=== PATIENT | female | born 1975 | race Caucasian/White ===

== ENCOUNTER 2020-09-09 13:00 | Outpatient (RCR) | payer MEDICAID, OTHER, SELFPAY | END 2020-10-07 10:40 | disposition home or self-care (01) | LOC: HO.PTCHIC 13:00 | PROVIDERS: PCP Nurse Practitioner Family; Visit Provider Nurse Practitioner Family | DX: R42 Dizziness and giddiness (principal) | CPT/HCPCS: 95992; 97110; 97112 ==

== ENCOUNTER → 2020-10-07 12:59 | Outpatient (BNV) | payer MEDICAID, SELFPAY | PROVIDERS: Visit Provider Internal Medicine | DX: D72.819 Decreased white blood cell count, unspecified (principal) | CPT/HCPCS: 99203; 99213 ==

== ENCOUNTER 2020-10-27 16:13 | Outpatient (REF) | payer MEDICAID, OTHER, SELFPAY ==
[2020-10-27 17:13] LABS: MANUAL DIFF FLAG NO
[2020-10-27 17:20] LABS: Basophils Percent Auto 0.3 % (0-2); Eosinophils Absolute Auto 0.1 X10*3/uL (0.0-0.4); Eosinophils Percent Auto 2.6 % (0-4); Hemoglobin 15.4 g/dl (12.0-16.0); Imm Gran Abs Auto 0.01 X10*3/uL (0.00-0.03); Imm Gran Pct Auto 0.3 % (0.0-0.4); Lymphocytes Absolute Auto 1.2 X10*3/uL (1.2-4.9); Lymphocytes Percent Auto 38.3 % (20-40); Mean Corpuscular HGB Conc 32.8 g/dl (31.0-35.0); Mean Corpuscular Hemoglobin 29.2 pg (27.0-33.0); Mean Corpuscular Volume 89.2 fL (80-98); Mean Platelet Volume 9.5 fL (9.4-12.3); Monocytes Absolute Auto 0.3 X10*3/uL (0.1-1.2); Monocytes Percent Auto 10.4 % (2-11); Neutrophils Absolute Auto 1.5 X10*3/uL (2.0-8.3); Neutrophils Percent Auto 48.1 % (45-73); Platelet Count 390 X10*3/uL (160-400); Red Blood Count 5.27 X10*6/uL (4.20-5.50); Red Cell Distribution Width 11.8 % (11.0-16.0); White Blood Count 3.1 X10*3/uL (4.8-10.8)
[2020-10-27 17:53] LABS: C Reactive Protein 0.32 mg/dL (< or = 0.50)
[2020-10-27 18:17] LABS: Ferritin 46 ng/mL (10-250)
== END 2020-10-27 16:14 | disposition home or self-care (01) ==
LOC: HO.LAB 16:13
PROVIDERS: PCP Nurse Practitioner; Visit Provider Internal Medicine
DX: U07.1 COVID-19 (principal); D70.8 Other neutropenia
CPT/HCPCS: 36415; 82728; 85025; 86140; 87040

== ENCOUNTER 2021-05-24 08:45 | Outpatient (REF) | payer MEDICAID, OTHER, SELFPAY ==
--- NOTE | ~2021-05-24 | MM_ITS ---
EXAMINATION: MM SCREENING DIGITAL BREAST TOMOSYNTHESIS, BILATERAL CLINICAL INFORMATION: Screening. Asymptomatic. The lifetime risk of breast cancer based on the Tyrer-Cuzick Model is 8.0%. COMPARISON: Mammography: May 23, 2020 and studies dating back to December 18, 2014 TECHNIQUE: Digital breast tomosynthesis is performed in both the craniocaudal and mediolateral oblique views along with computer-aided detection (CAD). Synthesized 2D images are generated from the tomosynthesis. FINDINGS: There are scattered areas of fibroglandular density (ACR BI-RADS breast composition Category b). There are no significant masses, abnormal calcifications, or other abnormalities. MM/MM tomosynthesis screening BI IMPRESSION: There are no significant changes from prior study. ASSESSMENT: BI-RADS 1: Negative RECOMMENDATION: Routine annual mammography screening. This patient's information was entered into a reminder system with a target due date for their next mammogram.
== END 2021-05-24 08:46 | disposition home or self-care (01) ==
LOC: HO.MAMMO 08:45
PROVIDERS: PCP Nurse Practitioner; Visit Provider Nurse Practitioner
DX: Z12.31 Encounter for screening mammogram for malignant neoplasm of breast (principal)
CPT/HCPCS: 77063; 77067

== ENCOUNTER 2022-06-13 13:45 | Outpatient (REF) | payer MEDICAID, OTHER, SELFPAY ==
--- NOTE | ~2022-06-13 | MM_ITS ---
EXAMINATION: MM SCREENING DIGITAL BREAST TOMOSYNTHESIS, BILATERAL CLINICAL INFORMATION: Screening. Asymptomatic. The lifetime risk of breast cancer based on the Tyrer-Cuzick Model is 8%. COMPARISON: Mammography: 05/24/2021, 05/23/2020, 03/15/2019 TECHNIQUE: Digital breast tomosynthesis is performed in both the craniocaudal and mediolateral oblique views along with computer-aided detection (CAD). Synthesized 2D images are generated from the tomosynthesis. FINDINGS: There are scattered areas of fibroglandular density (ACR BI-RADS breast composition Category b). Breast tissue composition borders on predominantly fatty. There is no developing density or interval mass or architectural abnormality. No abnormal calcifications. Biopsy clip marker again noted anterior upper outer right breast. The axilla and skin contours are unremarkable. MM/MM tomosynthesis screening BI IMPRESSION: No mammographic evidence of malignancy. ASSESSMENT: BI-RADS 1: Negative RECOMMENDATION: Routine annual mammography screening. This patient's information was entered into a reminder system with a target due date for their next mammogram.
== END 2022-06-13 13:46 | disposition home or self-care (01) ==
LOC: HO.MAMMO 13:45
PROVIDERS: Visit Provider Nurse Practitioner
DX: Z12.31 Encounter for screening mammogram for malignant neoplasm of breast (principal)
CPT/HCPCS: 77063; 77067

== ENCOUNTER 2022-09-27 17:53 | Emergency (ER) | payer MEDICAID, OTHER, SELFPAY ==
--- NOTE | ~2022-09-27 | XR_ITS ---
EXAMINATION: XR CHEST CLINICAL INFORMATION: Chest pain COMPARISON: Chest x-ray 10/30/2017 TECHNIQUE: Frontal view of the chest was obtained. FINDINGS: The lungs are clear. No airspace consolidation, pleural effusion, or pneumothorax. The cardiomediastinal silhouette is within normal limits. No acute osseous injury. XR/XR chest 1V IMPRESSION: No acute pulmonary disease.
[2022-09-27 17:56] VITALS: BP 149/79; PULSE 58; RESP 18; TEMP 36.1; O2SAT 99; BMI 36.3
--- NOTE | 2022-09-27 17:59 | ECG_ITS ---
Test Reason : CP Blood Pressure : / mmHG Vent. Rate : 059 BPM Atrial Rate : 059 BPM P-R Int : 140 ms QRS Dur : 076 ms QT Int : 430 ms P-R-T Axes : 018 017 024 degrees QTc Int : 425 ms Sinus bradycardia Otherwise normal ECG No previous ECGs available Referred By: Generic ED Physician Electronically Signed By:CHUY CHAUDHARI MD
[2022-09-27 18:13] LABS: MANUAL DIFF FLAG NO
[2022-09-27 18:28] LABS: Basophils Percent Auto 0.8 % (0-2); Eosinophils Absolute Auto 0.1 X10*3/uL (0.0-0.4); Eosinophils Percent Auto 1.6 % (0-4); Hematocrit 43.2 % (37.0-47.0); Hemoglobin 14.5 g/dl (12.0-16.0); Lymphocytes Absolute Auto 1.8 X10*3/uL (1.2-4.9); Mean Corpuscular HGB Conc 33.6 g/dl (31.0-35.0); Mean Corpuscular Hemoglobin 29.9 pg (27.0-33.0); Mean Corpuscular Volume 89.1 fL (80.0-98.0); Mean Platelet Volume 9.4 fL (9.4-12.3); Monocytes Absolute Auto 0.3 X10*3/uL (0.1-1.2); Monocytes Percent Auto 8.1 % (2-11); Neutrophils Absolute Auto 1.6 x10*3/uL (2.0-8.3); Neutrophils Percent Auto 42.5 % (45-73); Platelet Count 293 X10*3/uL (160-400); Red Blood Count 4.85 X10*6/uL (4.20-5.50); Red Cell Distribution Width 11.9 % (11.0-16.0); White Blood Count 3.8 X10*3/uL (4.8-10.8)
[2022-09-27 18:42] LABS: Troponin-I High Sensitivity 11.8 ng/L (<3.5-17.0)
[2022-09-27 18:49] LABS: Alanine Aminotransferase 25 U/L (0-31); Albumin Level 4.6 g/dL (3.5-5.0); Alkaline Phosphatase 79 U/L (39-117); Anion Gap 15 (12-20); Aspartate Amino Transferase 21 U/L (5-31); Bilirubin Direct < 0.2 mg/dL (0.0-0.5); Bilirubin Total < 0.2 mg/dL (0.0-1.0); Blood Urea Nitrogen 11 mg/dL (9-16); Calcium 9.7 mg/dL (8.4-10.2); Carbon Dioxide 25 mmol/L (22-29); Chloride 104 mmol/L (96-108); Creatinine Clr Calc Pharmacy 92.1; Estimated Glomerular Filt Rate > 60; Glucose Random 84 mg/dL (60-115); Lipase 29 U/L (8-78); Potassium 4.2 mmol/L (3.3-5.1); Sodium 140 mmol/L (135-145); Total Protein 7.5 g/dL (6.5-8.0)
[2022-09-27 23:12] LABS: Troponin-I High Sensitivity 12.5 ng/L (<3.5-17.0)
--- NOTE | 2022-09-27 23:16 | ED_ITS ---
HPI - Chest Pain General Chief Complaint: Chest Pain Stated Complaint: Chest pain/ Sent from [facility] Time Seen by Provider: 09/27/22 22:40 Source: patient Mode of arrival: ambulatory Limitations: language barrier (Cypriot-speaking certified medical asst utilized) History of Present Illness HPI narrative: Patient is a 47-year-old female presents to the emergency department for evaluation of chest pain coming from [facility]. Patient reports that she has been having diffuse anterior chest pain for 1 week. There is associated pressure felt across the chest occurring intermittently, this lasts for 1-2 minutes and then self resolves. It happens during moments of rest as well as exertion. The pressure sensation occurs approximately 5 times daily. Denies associated fevers, chills, upper respiratory symptoms, neck pain, neck stiffness, cough, shortness of breath, difficulty breathing, nausea, vomiting, abdominal pain, numbness or tingling of the extremities, weakness. Denies any history of smoking, hormone usage, recent leg pain or swelling or redness, history of DVT/PE, personal history of cancer. Related Data Home Medications Medication Instructions Recorded Confirmed cholecalciferol (vitamin D3) 25 25 mcg PO DAILY 10/07/20 10/11/21 mcg (1,000 unit) capsule (Vitamin D3) ibuprofen 600 mg tablet 600 mg PO TID 10/07/20 10/11/21 omeprazole 20 mg capsule,delayed 20 mg PO BID 10/07/20 10/11/21 release rosuvastatin 10 mg tablet (Crestor) 10 mg PO DAILY 10/07/20 10/11/21 Allergies Allergy/AdvReac Type Severity Reaction Status Date / Time acetaminophen [From Tylenol] Allergy Stomach Verified 10/11/21 08:29 Upset amoxicillin Allergy Anaphylaxis Verified 10/11/21 08:29 Review of Systems Review of Systems: Constitutional : No Weight loss, No Fever, No Chills ENT/Mouth :? No sore throat, No Rhinorrhea Eyes: No Eye Pain, No Swelling Cardiovascular : pos Chest Pain, no SOB, no Dyspnea on Exertion, No Orthopnea, No Edema, No Palpitations Respiratory : No Cough, No Sputum Gastrointestinal : No Nausea, No Vomiting, No Diarrhea, No abdominal Pain, No Hematochezia, No Melena Genitourinary : No Dysuria, No Urinary Frequency Musculoskeletal : No joint pain, No Myalgias, No Joint Swelling Skin : No Skin Lesions, No rash Neuro : No Weakness, No Numbness, No Dizziness, No Headache Psych : No Anxiety/Panic, No Depression Heme/Lymph: No Bruising, No Lymphadenopathy Endocrine : No Polyuria, No Polydipsia Yes all other systems are reviewed and are negative [facility] Past Medical History Attestation statement: The following information was validated with the patient. 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 Vitiligo Surgical History History of tubal ligation Family History Family History Mother Hyperlipemia Social History Social History Are you a primary critical care unit nurse to a significant other at home: No Alcohol intake: never Advance Directives: No Advance Directives Information Provided: Yes Physical Exam Vital Signs: Vital Signs: Last Vital Signs Temp 97.0 F 09/27/22 17:56 Pulse 58 09/27/22 17:56 Resp 18 09/27/22 17:56 BP 149/79 H 09/27/22 17:56 Pulse Ox 99 09/27/22 17:56 O2 Del Method 09/27/22 17:56 BMI result Body Mass Index 36.3 Appearance: Alert.?Oriented to person, place and time. No acute distress.?N ormal affect. Eyes: Pupils equal, round and reactive to light.? ENT: Pharynx normal.?? Neck: Normal inspection.? Neck supple.?? CVS: Heart sounds normal. Normal heart rate and rhythm.? Pulses normal.?? Respiratory: No respiratory distress.? Lung sounds clear to auscultation bilaterally?? Abdomen: Soft and non-tender. Normoactive bowel sounds. ?? Skin: Skin warm and dry.? Normal skin color.? Extremities: No lower extremity edema.? ?No calf TTP. Neuro: Moves all extremities spontaneously. Sensation intact bilaterally. No focal neuro deficits. Ambulates with normal steady gait. Course Course Course Narrative: Patient is a 39-year-old female who presents emergency department for evaluation of chest pain. Chest pain is been ongoing for 1 week. It is non reproducible. At the time of examination she is overall well-appearing. Vital signs are stable. No upper respiratory symptoms associated with this. Labs obtained from triage reveal no overall unremarkable CBC and CMP. Initial troponin 12.5, delta negative. EKG reveals sinus bradycardia no acute ischemic findings. Chest x- ray reveals no acute cardiopulmonary process. PERC negative. Not consistent with ACS/PE/pneumonia. Discussed plan of care for discharge home, outpatient follow-up with primary care provider, advised use of acetaminophen/ibuprofen as needed for pain. Reviewed worrisome signs and symptoms to return back to emerge ncy department for. All questions were answered, patient was discharged home in stable condition. MDM - Chest Pain Medical Records Data Attestation: I reviewed the patient's medical records. Lab Data Attestation: I reviewed the patient's lab results. Result diagrams: 09/27/22 18:06 09/27/22 18:05 Labs: Lab Results 09/27/22 09/27/22 09/27/22 Range/Units 18:05 18:05 18:06 WBC 3.8 L (4.8-10.8) X10*3/uL RBC 4.85 (4.20-5.50) X10*6/uL Hgb 14.5 (12.0-16.0) g/dl Hct 43.2 (37.0-47.0) % MCV 89.1 (80.0-98.0) fL MCH 29.9 (27.0-33.0) pg MCHC 33.6 (31.0-35.0) g/dl RDW 11.9 (11.0-16.0) % Plt Count 293 (160-400) X10*3/uL MPV 9.4 (9.4-12.3) fL Immature Gran % (Auto) 0.0 (0.0-0.4) % Neut % (Auto) 42.5 L (45-73) % Lymph % (Auto) 47.0 H (20-40) % Maury % (Auto) 8.1 (2-11) % Eos % (Auto) 1.6 (0-4) % Baso % (Auto) 0.8 (0-2) % Lymph # (Auto) 1.8 (1.2-4.9) X10*3/uL Maury # (Auto) 0.3 (0.1-1.2) X10*3/uL Eos # (Auto) 0.1 (0.0-0.4) X10*3/uL Baso # (Auto) 0.0 (0.0-0.2) X10*3/uL Abs Immat Gran (auto) 0.00 (0.00-0.03) X10*3/uL Absolute Neuts (auto) 1.6 L (2.0-8.3) x10*3/uL Absolute Nucleated RBC 0.000 (0.0-0.012) X10*3/uL Nucleated RBC % (auto) 0.0 (0.0-0.2) /100WBC Sodium 140 (135-145) mmol/L Potassium 4.2 (3.3-5.1) mmol/L Chloride 104 (96-108) mmol/L Carbon Dioxide 25 (22-29) mmol/L Anion Gap 15 (12-20) BUN 11 (9-16) mg/dL Creatinine 0.72 (0.5-1.4) mg/dL Estim Creat Clear Calc 92.1 Estimated GFR > 60 Random Glucose 84 (60-115) mg/dL Calcium 9.7 (8.4-10.2) mg/dL Total Bilirubin < 0.2 (0.0-1.0) mg/dL Direct Bilirubin < 0.2 (0.0-0.5) mg/dL AST 21 (5-31) U/L ALT 25 (0-31) U/L Alkaline Phosphatase 79 (39-117) U/L Troponin I High Sens 11.8 (<3.5-17.0) ng/L Total Protein 7.5 (6.5-8.0) g/dL Albumin 4.6 (3.5-5.0) g/dL Lipase 29 (8-78) U/L 09/27/22 Range/Units 22:44 WBC (4.8-10.8) X10*3/uL RBC (4.20-5.50) X10*6/uL Hgb (12.0-16.0) g/dl Hct (37.0-47.0) % MCV (80.0-98.0) fL MCH (27.0-33.0) pg MCHC (31.0-35.0) g/dl RDW (11.0-16.0) % Plt Count (160-400) X10*3/uL MPV (9.4-12.3) fL Immature Gran % (Auto) (0.0-0.4) % Neut % (Auto) (45-73) % Lymph % (Auto) (20-40) % Maury % (Auto) (2-11) % Eos % (Auto) (0-4) % Baso % (Auto) (0-2) % Lymph # (Auto) (1.2-4.9) X10*3/uL Maury # (Auto) (0.1-1.2) X10*3/uL Eos # (Auto) (0.0-0.4) X10*3/uL Baso # (Auto) (0.0-0.2) X10*3/uL Abs Immat Gran (auto) (0.00-0.03) X10*3/uL Absolute Neuts (auto) (2.0-8.3) x10*3/uL Absolute Nucleated RBC (0.0-0.012) X10*3/uL Nucleated RBC % (auto) (0.0-0.2) /100WBC Sodium (135-145) mmol/L Potassium (3.3-5.1) mmol/L Chloride (96-108) mmol/L Carbon Dioxide (22-29) mmol/L Anion Gap (12-20) BUN (9-16) mg/dL Creatinine (0.5-1.4) mg/dL Estim Creat Clear Calc Estimated GFR Random Glucose (60-115) mg/dL Calcium (8.4-10.2) mg/dL Total Bilirubin (0.0-1.0) mg/dL Direct Bilirubin (0.0-0.5) mg/dL AST (5-31) U/L ALT (0-31) U/L Alkaline Phosphatase (39-117) U/L Troponin I High Sens 12.5 (<3.5-17.0) ng/L Total Protein (6.5-8.0) g/dL Albumin (3.5-5.0) g/dL Lipase (8-78) U/L Imaging Data Chest x-ray: Radiologist's impression: XR/XR chest 1V IMPRESSION: No acute pulmonary disease. ECG Data ECG #1: Attestation: I personally reviewed and interpreted this ECG as follows: ECG interpretation date: 09/27/22 Prior ECG tracings: not available for review Interpretation: Rate: 59 Rhythm:? Sinus bradycardia [place]:? Normal Normal P waves.? Normal [place].?? Normal QRS complex.?? ST T wave :??No ST elevation, no ST depression, no T-wave inversion qTC: 425 prior studies:? None available for review The study has been interpreted contemporaneously by me. Discharge Plan Discharge Clinical Impression: Chest pain Patient Disposition: Home, Self-Care Instructions: Chest Pain (ED), Noncardiac Chest Pain (ED) Additional Instructions: As we discussed, your blood work today was overall normal, your chest x-ray and EKG were all very reassuring. You can take ibuprofen 200 mg, 3 tablets (600mg) every 6-8 hours as needed for pain, in addition to Tylenol 500 mg, 2 tablets (1,000mg) every 4-6 hours as needed for pain, but not to exceed 3 doses daily (3,000mg).? Return to emergency department with any new or worsening symptoms or concerns. This includes but is not limited to severe worsening chest pain, dizziness, lightheadedness, headache, shortness of breath, difficulty breathing, nausea with persistent vomiting, abdominal pain, numbness or tingling of your arms or legs. Follow-up with your primary care provider within 2 days. Tima comentamos, lockett an?lisis de lurdes de hoy fue normal en general, lockett radiograf?a de t?rax y lockett electrocardiograma fueron muy tranquilizadores. Puede fabio ibuprofeno de 200 mg, 3 tabletas (600 mg) cada 6 a 8 horas seg?n sea necesario para el dolor, adem?s de Tylenol 500 mg, 2 tabletas (1000 mg) cada 4 a 6 horas seg?n sea necesario para el dolor, thelma sin exceder las 3 dosis diarias (3.000 mg). Regrese al departamento de emergencias con cualquier s?ntoma o inquietud nueva o que empeore. [place] incluye, entre otros, dolor de pecho que empeora gravemente, mareos, aturdimiento, dolor de geovanna, dificultad para respirar, n?useas con v?mitos persistentes, dolor abdominal, entumecimiento u hormigueo en los brazos o las piernas. Seguimiento con lockett proveedor de atenci?n primaria dentro de 2 d?as. Prescriptions: No Action omeprazole 20 mg Capsule,Delayed Release(Dr/Ec) 20 mg PO BID ibuprofen 600 mg Tablet 600 mg PO TID cholecalciferol (vitamin D3) [Vitamin D3] 25 mcg (1,000 unit) Capsule 25 mcg PO DAILY rosuvastatin [Crestor] 10 mg Tablet 10 mg PO DAILY Referrals: Kait Wright [Primary Care Provider] - Interventions: ED Discharge Assessment Last Done: 09/27/22 23:47 Discharge Date/Time: 09/27/22 23:47 Print Language: Cypriot
== END 2022-09-27 23:47 | disposition home or self-care (01) ==
PROVIDERS: Nurse Practitioner Family; Emergency Provider Internal Medicine; PCP Nurse Practitioner
DX: R07.9 Chest pain, unspecified (principal); E78.5 Hyperlipidemia, unspecified; Z79.02 Long term (current) use of antithrombotics/antiplatelets; Z79.899 Other long term (current) drug therapy
CPT/HCPCS: 36415; 71045; 80053; 82248; 83690; 84484; 85025; 93005; 99283

== ENCOUNTER 2022-10-07 16:28 | Outpatient (REF) | payer MEDICAID, OTHER, SELFPAY ==
--- NOTE | ~2022-10-07 | CT_ITS ---
EXAMINATION: CT HEAD WITHOUT CONTRAST CLINICAL INFORMATION: Headache. COMPARISON: Brain MRI from 07/23/2008. TECHNIQUE: Contiguous axial imaging was performed from the skull base to vertex without intravenous administration of contrast. This CT examination was performed using dose optimization techniques as appropriate, variously including the following: *Automated exposure control. *Adjustment of mA and/or kV according to patient size (this includes techniques or standardized protocols for targeted exams where dose is matched to indication/reason for exam; i.e. extremities or head). *Use of iterative reconstruction technique. DLP: 670 mGy-cm FINDINGS: There is no evidence of acute intracranial hemorrhage or edematous territorial infarction. Rice-white matter differentiation is preserved. There is no abnormal attenuation within the brain parenchyma. The ventricles are normal in morphology and size. No evidence for obstructive hydrocephalus. No abnormal mass effect or midline shift. The suprasellar cistern is mildly expanded with flattening of the pituitary gland. Normal positioning of the cerebellar tonsils. No extra-axial fluid collections. No acute soft tissue or osseous abnormalities. The mastoid air cells and visualized paranasal sinuses are clear. CT/CT head/brain wo IV con IMPRESSION: No evidence of acute intracranial hemorrhage or edematous territorial infarction.
== END 2022-10-07 16:29 | disposition home or self-care (01) ==
LOC: HO.CT 16:28
PROVIDERS: PCP Emergency Medicine; Visit Provider Emergency Medicine
DX: R51.9 Headache, unspecified (principal)
CPT/HCPCS: 70450

== ENCOUNTER 2023-07-17 08:51 | Outpatient (REF) | payer MEDICAID, OTHER, SELFPAY ==
--- NOTE | ~2023-07-17 | MM_ITS ---
EXAMINATION: MM SCREENING DIGITAL BREAST TOMOSYNTHESIS, BILATERAL CLINICAL INFORMATION: Screening. Asymptomatic. COMPARISON: Mammography: This study is compared with prior exams dating back to 2017. TECHNIQUE: Digital breast tomosynthesis is performed in both the craniocaudal and mediolateral oblique views along with computer-aided detection (CAD). Synthesized 2D images are generated from the tomosynthesis. FINDINGS: There are scattered areas of fibroglandular density (ACR BI-RADS breast composition Category b). There are no significant masses, abnormal calcifications, or other abnormalities. There is tissue marker present in the right breast from prior benign percutaneous biopsy. MM/MM tomosynthesis screening BI IMPRESSION: No mammographic evidence of malignancy. ASSESSMENT: BI-RADS BI-RADS 2 - Benign Findings RECOMMENDATION: Routine annual mammography screening. 1 year F/U This examination should not preclude the clinical evaluation of a suspicious palpable abnormality. This patient's information was entered into a reminder system with a target due date for their next mammogram.
== END 2023-07-17 08:52 | disposition home or self-care (01) ==
LOC: HO.MAMMO 08:51
PROVIDERS: PCP Physician Assistant; Visit Provider Nurse Practitioner
DX: Z12.31 Encounter for screening mammogram for malignant neoplasm of breast (principal)
CPT/HCPCS: 77063; 77067

== ENCOUNTER → 2023-07-17 09:00 | Outpatient (BNV) | payer SELFPAY | PROVIDERS: PCP Physician Assistant; Visit Provider Radiology Diagnostic Radiology | DX: Z12.31 Encounter for screening mammogram for malignant neoplasm of breast (principal) | CPT/HCPCS: 77063; 77067 ==

== ENCOUNTER 2023-11-13 11:25 | Outpatient (REF) | payer OTHER, SELFPAY ==
[2023-11-13 14:01] LABS: Cholesterol 121 mg/dL (<200); HDL Cholesterol 51 mg/dL (>40); LDL Cholesterol Calculated 57 mg/dL (<100); Triglycerides 69 mg/dL (<150)
== END 2023-11-13 11:26 | disposition home or self-care (01) ==
LOC: HO.HHCL 11:25
PROVIDERS: Visit Provider Registered Nurse
DX: E78.2 Mixed hyperlipidemia (principal)
CPT/HCPCS: 36415; 80061

== ENCOUNTER 2023-12-13 11:43 | Outpatient (REF) | payer OTHER, SELFPAY ==
[2023-12-13 14:05] LABS: Alanine Aminotransferase 31 U/L (0-31); Albumin Level 4.4 g/dL (3.5-5.0); Alkaline Phosphatase 78 U/L (39-117); Aspartate Amino Transferase 27 U/L (5-31); Bilirubin Direct 0.1 mg/dL (0.0-0.5); Bilirubin Total 0.4 mg/dL (0.0-1.0); Total Protein 7.8 g/dL (6.5-8.0)
== END 2023-12-13 11:44 | disposition home or self-care (01) ==
LOC: HO.HHCL 11:43
PROVIDERS: Visit Provider Registered Nurse
DX: E78.2 Mixed hyperlipidemia (principal)
CPT/HCPCS: 36415; 80076

== ENCOUNTER 2024-02-21 12:22 | Outpatient (REF) | payer OTHER, SELFPAY ==
[2024-02-21 13:30] LABS: MANUAL DIFF FLAG NO
[2024-02-21 13:51] LABS: Basophils Percent Auto 0.7 % (0-2); Eosinophils Percent Auto 1.5 % (0-4); Hematocrit 46.2 % (37.0-47.0); Hemoglobin 15.3 g/dl (12.0-16.0); Imm Gran Abs Auto 0.01 X10*3/uL (0.00-0.03); Imm Gran Pct Auto 0.4 % (0.0-0.4); Lymphocytes Absolute Auto 1.3 X10*3/uL (1.2-4.9); Lymphocytes Percent Auto 50.2 % (20-40); Mean Corpuscular HGB Conc 33.1 g/dl (31.0-35.0); Mean Corpuscular Hemoglobin 29.4 pg (27.0-33.0); Mean Corpuscular Volume 88.8 fL (80.0-98.0); Monocytes Absolute Auto 0.2 X10*3/uL (0.1-1.2); Monocytes Percent Auto 8.6 % (2-11); Neutrophils Percent Auto 38.6 % (45-73); Platelet Count 285 X10*3/uL (160-400); Red Cell Distribution Width 12.7 % (11.0-16.0); White Blood Count 2.7 X10*3/uL (4.8-10.8)
[2024-02-21 14:00] LABS: Estimated Average Glucose 105 mg/dL; Hemoglobin A1c % 5.3 % (<6.0)
[2024-02-21 14:17] LABS: Anion Gap 12 (12-20); Blood Urea Nitrogen 10 mg/dL (9-16); Calcium 9.8 mg/dL (8.4-10.2); Carbon Dioxide 29 mmol/L (22-29); Chloride 105 mmol/L (96-108); Estimated Glomerular Filt Rate > 60; Glucose Random 91 mg/dL (60-115); Potassium 4.5 mmol/L (3.3-5.1); Sodium 141 mmol/L (135-145)
[2024-02-21 14:20] LABS: TSH reflex Free T4 4.81 uIU/mL (0.32-4.0)
[2024-02-21 15:02] LABS: Free T4 (Free Thyroxine) 0.62 ng/dL (0.71-1.85)
[2024-02-22 06:41] LABS: HIV AB/AG Nonreactive (Nonreactive); HIV Num 1 0.05 S/CO (0.00-0.99)
[2024-02-22 11:43] LABS: RPR Rapid Plasma Reagin NON-REACTIVE (NON-REACTIVE)
[2024-02-23 17:03] LABS: HCV Log PCR <1.18 NOT DETECTED Log IU/mL (NOT DETECTED); HepC Viral Load <15 NOT DETECTED IU/mL (NOT DETECTED)
== END 2024-02-21 12:23 | disposition home or self-care (01) ==
LOC: HO.HHCL 12:22
PROVIDERS: Visit Provider Registered Nurse
DX: Z00.00 Encounter for general adult medical examination without abnormal findings (principal); Z20.2 Contact with and (suspected) exposure to infections with a predominantly sexual mode of transmission
CPT/HCPCS: 36415; 80048; 83036; 84439; 84443; 85025; 86592; 87389; 87522

== ENCOUNTER 2024-02-28 12:59 | Outpatient (REF) | payer OTHER, SELFPAY ==
[2024-02-28 17:08] LABS: TSH reflex Free T4 5.93 uIU/mL (0.32-4.0)
[2024-02-28 17:46] LABS: Free T4 (Free Thyroxine) 0.68 ng/dL (0.71-1.85)
[2024-03-01 10:54] LABS: Thyroid Peroxidase Antibodies >900 IU/mL (<9)
== END 2024-02-28 13:00 | disposition home or self-care (01) ==
LOC: HO.HHCL 12:59
PROVIDERS: Visit Provider Registered Nurse
DX: R79.89 Other specified abnormal findings of blood chemistry (principal)
CPT/HCPCS: 36415; 84439; 84443; 86376

== ENCOUNTER 2024-05-08 10:50 | Outpatient (REF) | payer OTHER, SELFPAY ==
[2024-05-08 14:11] LABS: TSH reflex Free T4 3.05 uIU/mL (0.32-4.0)
[2024-05-09 08:01] LABS: HBS Num1 0.36 mIU/mL (0-7.99); HBc Num1 0.12 S/CO (0.00-0.79); HBsAGNum1 0.26 S/CO (0.00-0.99); Hepatitis B Core Antibody Nonreactive (Nonreactive); Hepatitis B Surface Antigen Negative (Negative); ~Hepatitis B Surface Antibody NONREACTIVE (Nonreactive)
== END 2024-05-08 10:51 | disposition home or self-care (01) ==
LOC: HO.HHCL 10:50
PROVIDERS: Visit Provider Registered Nurse
DX: Z00.00 Encounter for general adult medical examination without abnormal findings (principal)
CPT/HCPCS: 36415; 82306; 84443; 86704; 86706; 87340

== ENCOUNTER 2024-07-24 10:22 | Outpatient (REF) | payer OTHER, SELFPAY ==
--- NOTE | ~2024-07-24 | MM_ITS ---
EXAMINATION: MM SCREENING DIGITAL BREAST TOMOSYNTHESIS, BILATERAL CLINICAL INFORMATION: Screening. Asymptomatic. COMPARISON: Mammography: Comparison is made with available priors TECHNIQUE: Digital breast tomosynthesis is performed in both the craniocaudal and mediolateral oblique views along with computer-aided detection (CAD). Synthesized 2D images are generated from the tomosynthesis. FINDINGS: There are scattered areas of fibroglandular density (ACR BI-RADS breast composition Category b). Right marker clip. There are no significant masses, abnormal calcifications, or other abnormalities. MM/MM tomosynthesis screening BI IMPRESSION: No mammographic evidence of malignancy. ASSESSMENT: BI-RADS BI-RADS 2 - Benign Findings RECOMMENDATION: Routine annual mammography screening. 1 year F/U This examination should not preclude the clinical evaluation of a suspicious palpable abnormality. This patient's information was entered into a reminder system with a target due date for their next mammogram. Electronically signed by: Norma Sheehan DO 08/16/2024 04:40 PM EDT
== END 2024-07-24 10:23 | disposition home or self-care (01) ==
LOC: HO.MAMMO 10:22
PROVIDERS: PCP Registered Nurse; Visit Provider Registered Nurse
DX: Z12.31 Encounter for screening mammogram for malignant neoplasm of breast (principal)
CPT/HCPCS: 77063; 77067

== ENCOUNTER → 2024-07-24 10:30 | Outpatient (BNV) | payer SELFPAY | PROVIDERS: PCP Registered Nurse; Visit Provider Internal Medicine | DX: Z12.31 Encounter for screening mammogram for malignant neoplasm of breast (principal) | CPT/HCPCS: 77063; 77067 ==

== ENCOUNTER 2024-08-07 10:52 | Outpatient (REF) | payer OTHER, SELFPAY ==
[2024-08-07 12:36] LABS: Cholesterol 171 mg/dL (<200); HDL Cholesterol 46 mg/dL (>40); LDL Cholesterol Calculated 99 mg/dL (<100); Triglycerides 133 mg/dL (<150)
[2024-08-07 13:16] LABS: Free T4 (Free Thyroxine) 0.69 ng/dL (0.71-1.85)
== END 2024-08-07 10:53 | disposition home or self-care (01) ==
LOC: HO.HHCL 10:52
PROVIDERS: Visit Provider Registered Nurse
DX: E03.9 Hypothyroidism, unspecified (principal); E78.2 Mixed hyperlipidemia
CPT/HCPCS: 36415; 80061; 84439; 84443

== ENCOUNTER 2024-09-30 13:26 | Outpatient (REF) | payer OTHER, SELFPAY ==
[2024-09-30 16:57] LABS: TSH reflex Free T4 3.35 uIU/mL (0.32-4.0)
== END 2024-09-30 13:27 | disposition home or self-care (01) ==
LOC: HO.HHCL 13:26
PROVIDERS: Visit Provider Registered Nurse
DX: E03.9 Hypothyroidism, unspecified (principal)
CPT/HCPCS: 36415; 84443

== ENCOUNTER 2025-02-11 15:12 | Outpatient (REF) | payer OTHER, SELFPAY ==
[2025-02-11 17:27] LABS: TSH reflex Free T4 4.69 uIU/mL (0.32-4.0)
--- OUTSIDE RECORDS SUMMARY | 2025-02-11 18:08 | XMS_ITS | Clinical Summary ---
Author Organization [facility] Address [address] [place] [address] Care Team Providers Care Tray Checker Name Role Phone Fabiola Bruce Primary Care Provider Allergies Active Allergy Reactions Criticality Noted Date Comments Amoxicillin Anaphylaxis High 05/15/2018 Sulfamethoxazole Rash Low 03/22/2021 Other reaction(s): Rash Trimethoprim Unknown Low 03/22/2021 Other reaction(s): Rash, Rash Acetaminophen Vomiting 12/28/2017 Medications vitamin D3 25 mcg (1,000 unit) capsule Take 1 capsule by mouth once a day. Active cetirizine (ZyrTEC) 10 mg tablet Take 10 mg by mouth as needed for seasonal allergies. Active ibuprofen (MOTRIN) 200 mg tablet Take 200 mg by mouth every 6 hours as needed for pain. Active multivitamin (THERAGRAN) tablet Take 1 tablet by mouth once a day. 2 Active Daily-Victor Manuel, with folic acid, tablet Take 1 tablet by mouth once a day. 2 Active loratadine (CLARITIN) 10 mg tablet Take 10 mg by mouth as needed. 3 Active rosuvastatin (CRESTOR) 40 mg tabletIndications:H yperlipidemia, unspecified hyperlipidemia type Take 1 tablet (40 mg total) by mouth nightly. 90 tablet 3 3 Active nortriptyline (PAMELOR) 10 mg capsule Take 1 capsule (10 mg total) by mouth nightly. 28 capsule 4 Active Active Problems Problem Noted Date Diagnosed Date Atypical chest pain 09/18/2023 Headache disorder 02/13/2023 Assessment & Plan (04/15/2024 10:19 AM EDT): She is doing well. Headaches are infrequent and when she has one, it is aborted by taking Advil. She is interested in coming off nortriptyline. I will have her decrease the dose to 10 mg nightly for about 4 weeks. If she remains stable she may then discontinue the medication. Follow-up as needed. Assessment & Plan (10/16/2023 12:36 PM EST): She is significantly improved. She reports having a headache about 2 times a month but they are mild and she often does not have to take any medication to get relief. She is tolerating nortriptyline 25 mg nightly. This medication will be maintained. Follow-up in 6 months. Assessment & Plan (07/10/2023 11:22 AM EDT): She is still having fairly frequent headaches though she feels that they are at least less than before. She is tolerating nortriptyline. I will increase the dose to 25 mg nightly. I suggested trying Excedrin Migraine as needed. Assessment & Plan (04/10/2023 10:59 AM EDT): She endorses having to take Advil for a headache about 3x/week. The medication is effective at aborting the headache. MRI-brain showed an empty sella which is just a normal variant. I reassured the patient of this benign finding. Her clinical presentation is otherwise not consistent with pseudotumor. I prescribed nortriptyline 10 mg at bedtime for prophylaxis. Follow-up in 3 months. Assessment & Plan (02/13/2023 9:53 AM EDT): The patient is a 47-year-old Polish-speaking female who comes in with a presenting complaint of headaches. She reports having holoacranial, throbbing headaches for approximately 1 year. Initially she was having headaches daily but, more recently he has been having about one a week. The headache may last several hours and she only gets partial relief by taking Advil. The headache is not worsened by coughing, sneezing, or other Valsalva maneuver. Occasionally she may have blurry vision and pulsatile tinnitus accompanying the headache. She will sometimes have conjunctival injection as well. She admits to having had headaches in the past but they were less frequent. Review of her chart reveals that she was being followed by neurology at the [facility] for vertigo from [id number] and, at one point she also mentioned having headaches. Family history is significant in that her mother had migraines. The patient had a CT scan of the brain on 10/07/2022 which was reported as showing a mildly expanded suprasellar cistern with flattening of the pituitary gland. This prompted the present consult. All other findings noted on the CT scan were normal. The patient is obese. Her neurologic examination is unremarkable. Notably, funduscopic examination was normal. An expanded suprasellar cistern could simply be a normal variant and it could be associated with empty sella syndrome. On the other hand it may also be seen in conditions such as hydrocephalus or pituitary adenomas. Unfortunately I do not have the actual CT images for review. In any case, we would need to have a better look at this finding with an MRI of the brain. Her normal neurologic examination is otherwise reassuring and I rather suspect that this will sock turner to be migraine headaches. I considered the possibility of idiopathic intracranial hypertension (IIH), previously known as pseudotumor cerebri, given that the patient is obese. However, the headache is not worsened by Valsalva, and her funduscopic examination was normal. MRI of the brain with and without contrast was requested. Further recommendations to follow when the results become available. Chronic idiopathic constipation 08/11/2021 Anal fissure 06/16/2021 History of recurrent UTIs 12/07/2018 Subacute and chronic vulvitis 09/24/2018 Screening for cervical cancer 09/10/2018 Overview (09/17/2018): 09/10/2018 pt denies abnormal pap history, not available done through pcp but reports due 12/2018. Pt denies abnormal history 09/10/2018 pap negative, hpv negative. Awaiting records if no abnormal history then 5 yr pap would be indicated per asccp guidelines for low risk patient. Chronic vulvitis 01/08/2018 Overview (09/10/2018): Vitiligo x 14 yrs, followed by dermatology, failed tacrolimus + hydrocortisone topical and light therapy for vulvovaginal symptoms 02/2018 Skin, Right Labia Minora, Punch biopsy via dermatology ??- Mild chronic vulvitis, non-specific.Comment: The epidermis shows mild acanthosis with mild hyperkeratosis, accompanied by mild superficial lymphocytic infiltrate and mild papillary dermal fibrosis. Eosinophil is not seen. A PAS stain is negative for fungal forms. The histopathological findings are subtle and nonspecific but could be consistent with chronic vulvitis and resolving allergic or irritant contact dermatitis. Clinico-pathologic correlation is recommended. 09/10/2018 subacute vulvitis with intermittent BV/yeast discussed. Hygiene reviewed. Trial of lotrisone as noted in visit 09/10/2018 will fu with SCREEN PRINTING INSPECTOR in 6-8 weeks. If she does not tolerate could consider mycolog vs. Calcitriol ointment. Pruritus ani 09/19/2017 Overview (09/19/2017): 6 months ago External hemorrhoids 09/19/2017 Seborrheic keratoses 05/01/2017 Vestibular neuronitis 12/08/2016 Leukopenia 11/18/2016 Burn of trunk 09/29/2014 Onychomycosis 05/14/2014 Depression 11/04/2010 Hyperlipidemia 11/04/2010 Benign paroxysmal positional vertigo 11/04/2010 Vitiligo 11/04/2010 Resolved Problems Problem Noted Date Diagnosed Date Resolved Date Acute cystitis without hematuria 07/06/2018 09/10/2018 Vertigo 10/31/2016 09/10/2018 Tinea pedis 05/14/2014 09/10/2018 Family History Medical History Relation Name Comments Alzheimer's disease Father Chronic Kidney Disease Father Heart disease Mother Hyperlipidemia Mother Migraines Mother Other Other Family history of No pertinent family history Relation Name Status Comments Father Mother Alive Other Social History Tobacco Use Types Packs/Day Years Used Date Smoking Tobacco: Never Smokeless Tobacco: Never Tobacco Cessation:Counseling Given: Not Answered Alcohol Use Standard Drinks/Week Comments No 0 (1 standard drink = 0.6 oz pur e alcohol) Comments No Sex and Gender Information Value Date Recorded Sex Assigned at Not on file Legal Sex Female 10:00 AM EDT Gender Identity Female 09/10/2018 10:58 AM EDT Sexual Orientation Not on file Occupation Industry Job Start Date Job End Date 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 Not on file Not on file Not on file 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 Not on file Not on file Not on file Last Filed Vital Signs Vital Sign Reading Time Taken Comments Blood Pressure 131/82 04/15/2024 9:58 AM EDT Pulse 67 04/15/2024 9:58 AM EDT Temperature 36.7 ??C (98 ??F) 07/10/2023 10:51 AM EDT Respiratory Rate 16 06/21/2023 1:47 PM EDT Oxygen Saturation 100% 04/15/2024 9:58 AM EDT Inhaled Oxygen Concentration - - Weight 81.6 kg (180 lb) 04/15/2024 9:58 AM EDT Height 152.4 cm (5') 04/15/2024 9:58 AM EDT Body Mass Index 35.15 04/15/2024 9:58 AM EDT Plan of Treatment Health Maintenance Due Date Last Done Comments Cologuard 1975 HPV and Pap Smear 1975 Sigmoidoscopy 1975 Hepatitis B Vaccines (2 of 3 - 19+ 3-dose series) 11/19/2013 10/22/2013 Cervical Cancer Screening 09/10/2021 Pap Smear 09/10/2021 09/10/2018, 09/10/2018 Mammogram 05/25/2022 05/25/2020, 02/26, 03/14/2018 DTaP,Tdap,and Td Vaccines (2 - Td or Tdap) 08/22/2023 08/22/2013 COVID-19 Vaccine (4 - 2023-2 5 season) 2024 12/09/2021, 05/16/2021, 04/25/2021 Influenza Vaccine (#1) 2024 , 10/08/2018, 08/15/2016, Additional history exists Pneumococcal Vaccine: 50+ Ye ars (1 of 1 - PCV) 2024 Zoster Vaccines (1 of 2) 2024 Alcohol/Substance Use Screening 11/27/2024 Depression Screening and Follow-Up 11/27/2024 Social Drivers of Health Sheila ual Screening 11/27/2024 FOBT / Fit Test 02/20/2025 02/21/2024, 03/20/2023 Colon Cancer Screening 10/29/2026 Colonoscopy 10/29/2026 10/29/2021, 120 01/2021, 10/29/2021, Additional history exists RSV Vaccine (60+ years old a nd patients) (1 - 1-dose 75+ series) 2049 Hepatitis C Screening Completed 03/20/2023 HIV Screening Completed 02/21/2024 Procedures * Due to [place] [employer] law, this organization might not be sharing negative HIV tests. Procedure Name Priority Date/Time Associated Diagnosis Comments COLONOSCOPY 10/29/2021 PAP Routine 09/10/2018 11:54 AM EDT Screening for cervical cancer from Last 3 Months or Most Recently Relevant to Health Maintenance Results * Due to [place] [employer] law, this organization might not be sharing negative HIV tests. * COLONOSCOPY (10/29/2021) Narrative Procedure Note Dipti Maravilla MD - 10/29/2021 8:19 AM EST Gastroenterology Patient Name: Jeane Jean Procedure Date: 10/29/2021 8:19 AM Date of : 1975 Admit Type: Outpatient Age: 46 Room: Room 1 Gender: Female Note Status: Finalized Attending MD: Dipti Maravilla MD Procedure: Colonoscopy Indications: Rectal bleeding Providers: Dipti Maravilla MD (Doctor) Referring MD: Dipti Maravilla MD (Referring MD) Requesting Provider: Medicines: Propofol per Anesthesia Complications: No immediate complications. Estimated blood loss:Minimal. Estimated Blood Loss: Estimated blood loss was minimal. Procedure: Pre-Anesthesia Assessment: - Prior to the procedure, a History and Physical was performed, and patient medications, allergies and sensitivities were reviewed. The patient's tolerance of previous anesthesia was reviewed. - The risks and benefits of the procedure and thesedation options and risks were discussed with the patient. All questions were answered and informed consent wasobtained. - The risks and benefits of the procedure and thesedation options and risks were discussed with the patient. All questions were answered and informed consent wasobtained. - ASA Grade Assessment: II - A patient with mildsystemic disease. After I obtained informed consent, the scope was passed under direct vision. Throughout the procedure, the patient's blood pressure, pulse, and oxygen saturations were monitored continuously. The [id number] OLYMPUS [id number] was introduced through the anus and advancedto the terminal ileum, with identification of theappendiceal orifice and IC valve. The colonoscopy was performed without difficulty. The patient tolerated the procedure well. The quality of the bowel preparation was good. Findings: The perianal and digital rectal examinations were normal. Trace blood visible at anus; limited anorectal exam in endoscopy setting did not visualize the fissure well as seen in office setting. The terminal ileum appeared normal. A 2 mm polyp was found in the cecum. The polyp was semi-sessile. The polyp was removed with a cold biopsy forceps. Resection was complete, and retrieval was complete. Estimated blood loss was minimal. The exam was otherwise without abnormality on direct and retroflexion views. Impression: - The examined portion of the ileum was normal. - One 2 mm polyp in the cecum, removed with a coldbiopsy forceps. Resected and retrieved. - The examination was otherwise normal on direct and retroflexion views. Recommendation: - Discharge patient to home (ambulatory). - Resume previous diet indefinitely. - Await pathology results. - Repeat colonoscopy in 5 years for surveillance. Dipti Maravilla MD 10/29/2021 9:28:45 AM This report has been signed electronically. Number of Addenda: 0 Note Initiated On: 10/29/2021 8:19 AM Dipti Maravilla MD PROVATION PROCEDURES Final Result from Last 3 Months or Most Recently Relevant to Health Maintenance Insurance [facility] HS/FREE CARE Care Teams Tray Checker Relationship Specialty Start Date End Date Fabiola Bruce [address] [place] [id number] PCP - General Family Medicine 04/10/23
--- OUTSIDE RECORDS SUMMARY | 2025-02-11 18:08 | XMS_ITS | Encounter Summary ---
Author Organization [employer] [facility] Address [address] [place] [address] [address] [place] [address] Care Team Providers Care Sales Specialist Name Role Phone Fabiola Bruce Primary Care Provider [phone] Encounter Details Date Type Department Care Team (Late st Contact Info) Description 11/24/2022 Telephone [facility] [address] [place] [address] Fabiola Bruce FNP [address] [place] [address] Social History Tobacco Use Types Packs/Day Years Used Date Smoking Tobacco: Never Assessed Comments Unknown Sex and Gender Information Value Date Recorded Sex Assigned at Female 09/26/2022 10:18 AM EDT Legal Sex Female 10:18 AM EDT Gender Identity Female 04/01/2023 4:33 PM EDT Sexual Orientation Choose not to disclose 2021 10:18 AM EDT documented as of this encounter Plan of Treatment Upcoming Encounters Date Type Department Care Team (Late Contact Info) Description 04/16/2025 10:00 AM EDT Office Visit [facility] [address] [place] [address] Fabiola Bruce FNP [address] [place] [address] documented as of this encounter Visit Diagnoses Not on filedocumented in this encounter Care Teams Sales Specialist Relationship Specialty Start Date End Date Fabiola Bruce FNP [address] [place] [address] PCP - General Family Medicine 07/22/22 documented as of this encounter
--- OUTSIDE RECORDS SUMMARY | 2025-02-11 18:08 | XMS_ITS | Referral Summary ---
Author Organization [facility] Address [address] [place] [address] Care Team Providers Care Electrical Prospecting Observer Name Role Phone Fabiola Bruce Primary Care Provider [phone] Allergies Active Allergy Reactions Criticality Noted Date [...] AM EDT): The patient is a 47-year-old [place]ican-speaking female who comes in with a presenting [...] was being followed by neurology at the [place] for vertigo from [id number] and, at one point she also mentioned [...] and I rather suspect that this will buffing turner and counter to be migraine headaches. I considered the [...] noted in visit 09/10/2018 will fu with LINUX SYSTEM ENGINEER in 6-8 weeks. 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 Procedure Name Priority Date/Time Associated Diagnosis Comments COLONOSCOPY 10/29/2021 PAP Routine 09/10/2018 11:54 AM EDT Screening for cervical cancer from Last 3 Months or Most Recently Relevant to Health Maintenance Results * Due to [place] [employer] law, this organization might not be sharing [...] and oxygen saturations were monitored continuously. The [id number] OLYMPUS [id number] was introduced through the anus and advancedto [...] Most Recently Relevant to Health Maintenance Insurance [facility] HSNO/FREE CARE Care Teams Electrical Prospecting Observer Relationship Specialty Start Date End Date Fabiola Bruce [address] [place] [id number] PCP - General Family Medicine 04/10/23
--- OUTSIDE RECORDS SUMMARY | 2025-02-11 18:08 | XMS_ITS | Clinical Summary ---
Author Organization [employer] Address [address] [place] [address] [address] [place] [address] Care Team Providers Care Equipment Tester Name Role Phone Fabiola Bruce CORINA Primary Care Provider [phone] Allergies Active Allergy Reactions Criticality Noted Date Comments Acetaminophen Nausea And Vomiting,Other 09/20/2017 Amoxicillin Anaphylaxis High 05/15/2018 Sulfamethoxazole Rash Low 03/22/2021 Other reaction(s): Rash Trimethoprim Hives Low 03/22/2021 Other reaction(s): Rash, Rash Other reaction(s): Rash, Rash Medications witch coty-glycerin (Tucks) pad Apply to anoretal area as needed up to 6 times daily or after each bowel movement 021 Active ibuprofen 200 MG tablet Take 200 mg by mouth every 6 (six) hours if needed. Active Multiple Vitamin (Daily-Victor Manuel Multivitamin) tabletIndications :Routine health maintenance Take 1 tablet by mouth in the morning. 90 tablet 1 023 Active triamcinolone (Kenalog) 0.1 % creamIndications: Psoriasiform dermatitis Apply topically 2 times daily. 80 g 1 023 Active tacrolimus (Protopic) 0.1 % ointmentIndicatio ns:Vitiligo Apply topically every 12 (twelve) hours. 60 g 1 023 Active multivitamin-chil dren's (Cerovite, Jr) 18 MG chewable tabletIndications :Encounter for general adult medical examination without abnormal findings CHEW AND SWALLOW 1 TABLET BY MOUTH EVERY MORNING 90 tablet 3 024 Active senna (Senokot) 8.6 MG tablet TAKE 2 TABLETS BY MOUTH ONCE DAILY FOR CONSTIPATION 180 tablet 1 024 Active Vitamin D High Potency 25 MCG (1000 UT) capsule TAKE 1 CAPSULE BY MOUTH EVERY MORNING 90 capsule 1 024 Active pantoprazole (ProtoNix) 20 MG EC tabletIndications :Gastroesophageal reflux disease, unspecified whether esophagitis present TAKE 1 TABLET BY MOUTH EVERY MORNING BEFORE BREAKFAST. DO NOT BREAK, CRUSH, DISSOLVE OR CHEW 90 tablet 3 024 Active cetirizine (ZyrTEC) 10 MG tabletIndications :Seasonal allergies Take 1 tablet (10 mg) by mouth if needed each day for allergies. 90 tablet 3 024 Active rosuvastatin (Crestor) 40 MG tabletIndications :Mixed hyperlipidemia Take 1 tablet (40 mg) by mouth at bedtime. 90 tablet 3 024 Active estradiol (Estrace) 0.1 MG/GM vaginal cream INSERT 1 GRAM VAGINALLY TWICE A WEEK 42.5 g 3 024 Active Multiple Vitamin (multivitamin) tablet Take 1 tablet by mouth Once per day. 90 tablet 3 025 Active levothyroxine (Synthroid, Levoxyl) 25 MCG tabletIndications :Acquired hypothyroidism TAKE 1 TABLET BY MOUTH EVERY DAY BEFORE BREAKFAST 90 tablet 1 025 Active magnesium oxide (Mag-Ox) 400 MG tabletIndications :Sleep disturbance TAKE 1 TABLET BY MOUTH AT BEDTIME 90 tablet 1 025 Active magnesium oxide (Mag-Ox) 400 MG tabletIndications :Sleep disturbance Take 1 tablet (400 mg) by mouth at bedtime. 90 tablet 1 024 2024 Discontinued levothyroxine (Synthroid) 25 MCG tabletIndications :Acquired hypothyroidism Take 1 tablet (25 mcg) by mouth before breakfast. Please recheck lab work in 6 weeks (around 09/25/24) 90 tablet 1 024 2024 Discontinued Active Problems Problem Noted Date Diagnosed Date Sleep disturbance 08/11/2024 Assessment & Plan (01/16/2025 8:50 PM EST): Cont magnesium 400 mg nightly Well controlled with current regimen Continue with sleep hygiene interventions Assessment & Plan (09/20/2024 8:56 AM EDT): Cont magnesium 400 mg nightly Well controlled with current regimen Continue with sleep hygiene interventions Assessment & Plan (08/11/2024 7:18 PM EDT): Difficulties with sleep onset and sleep maintenance Shared decision making to start magnesium 400 mg nightly. Reviewed med use and SE Continue with sleep hygiene interventions such as: Encouraged pt to use bed exclusively for sleep and sex. Set bed time and try to stay consistent each night with hour going to sleep and waking in morning. Avoid screens or electronics ideally for 2 hours before bed. If having trouble falling asleep, get up and journal or read before trying to re-initiate sleep. Gastroesophageal reflux disease 05/08/2024 Assessment & Plan (05/08/2024 11:13 AM EDT): -Previous trial of omeprazole w/o significant relief -Continues with pantoprazole 20mg daily PRN w/ good effect Acquired hypothyroidism 03/03/2024 Overview (01/16/2025): Lab Results Component Value Date TSH 3.35 09/30/2024 Assessment & Plan (01/16/2025 8:50 PM EST): Continues on levo 25mcg daily Assessment & Plan (09/20/2024 8:57 AM EDT): Continues on levo 25mcg daily Due to recheck TSH, ordered Assessment & Plan (08/11/2024 7:15 PM EDT): January-February 2024 - confirmation of elevated TSH with decreased free T4, pt with mild symptoms c/w hypothyroid Previously on levothyroxine 50mcg, although pt stopped around April 2024. Has been feeling increased fatigue Repeat TSH Assessment & Plan (05/08/2024 11:11 AM EDT): January-February 2024 - confirmation of elevated TSH with decreased free T4, pt with mild symptoms c/w hypothyroid Continue levothyroxine 50mcg Repeat TSH Assessment & Plan (03/03/2024 8:51 AM EDT): January-February 2024 - confirmation of elevated TSH with decreased free T4, pt with mild symptoms c/w hypothyroid Reviewed diagnosis with pt today, answered all questions Plan: start levothyroxine 50mcg daily, reviewed taking in the morning on an empty stomach, 30-60 minutes before breakfast and other meds Recheck TSH in 6 weeks Healthcare maintenance 07/11/2023 Overview (09/20/2024): Routine Health Maintenance Optometry: [facility] Eye Care eval Dec 2023. Next Dec 2024 Dental: established with dental home BMD: starting at 64 y/o Last PE: 05/08/24 Routine Cancer Screening Breast CA: Mammogram BIRADS 2 in Jun 2024 Cervical CA: Pap NIL/HPV neg 01/2022 Colonoscopy: 10/29/[address] Dipti Maravilla at [facility]. 2mm polyp in cecum. Recommend repeat colonoscopy in 5 years. Intermittent chest pain 07/11/2023 Assessment & Plan (11/09/2023 3:55 PM EST): ?? Personal history of HLD. Pertinent family history of OR - mother and sister (@62 y/o) ?? Denies palpitations, SOB, GUNDERSON, blurry vision, N/V/D ?? Evaluated by [facility] Cardiology May 2023, thought to be low probability chest pain syndrome, but high risk for CAD. Stress test, ETT and EKG reassuring Jun - Aug 2023. ?? ED precautions Assessment & Plan (07/16/2023 11:46 AM EDT): ?? Personal history of HLD. Pertinent family history of OR - mother and sister (@62 y/o) ?? Denies palpitations, SOB, GUNDERSON, blurry vision, N/V/D ?? Evaluated by [facility] Cardiology May 2023, thought to be low probability chest pain syndrome, but high risk for CAD. Plan for ETT and follow up in 4 months ?? ED precautions Mixed hyperlipidemia 04/01/2023 Assessment & Plan (08/11/2024 7:17 PM EDT): Continue with rosuvastatin 40mg nightly & lifestyle modifications Well controlled Lab Results Component Value Date CHOL 171 08/07/2024 CHOL 121 11/13/2023 TRIG 133 08/07/2024 TRIG 69 11/13/2023 TRIG 112 03/20/2023 HDL 46 08/07/2024 HDL 51 11/13/2023 LDLCHOLCAL 99 08/07/2024 LDLCHOLCAL 57 11/13/2023 Assessment & Plan (05/08/2024 11:11 AM EDT): Continue with rosuvastatin 40mg nightly & lifestyle modifications Well controlled Lab Results Component Value Date CHOL 121 11/13/2023 TRIG 69 11/13/2023 TRIG 112 03/20/2023 HDL 51 11/13/2023 LDLCHOLCAL 57 11/13/2023 Assessment & Plan (11/09/2023 4:11 PM EST): ?? Continue with rosuvastatin 40mg nightly ?? Last lipids 03/20/23: LDL 169, HDL 50, TC 243, TG 112 Repeat lipid panel ordered Assessment & Plan (07/16/2023 11:39 AM EDT): ?? Continue with rosuvastatin 40mg nightly ?? Last lipids 03/20/23: LDL 169, HDL 50, TC 243, TG 112 Plan to order repeat lipid and LFT through PCP office next appt (approx Sep 2023) if not completed through Cards Assessment & Plan (04/01/2023 4:47 PM EDT): ?? Continue with rosuvastatin 20mg nightly ?? Last lipids 03/20/23: LDL 169, HDL 50, TC 243, TG 112 Intermittent headache 11/29/2022 Assessment & Plan (08/11/2024 7:17 PM EDT): -Head CT 10/07/22 read as enlarged sella with flattened pituitary. -Following with [facility] Neuro - Dr. Rajan -Last consult appt in Jun 2023 with plan to order brain MRI -Tapered off nortriptyline and doing well -Continues Excedrin PRN Assessment & Plan (11/09/2023 3:52 PM EST): -Head CT 10/07/22 read as enlarged sella with flattened pituitary. -Following with [facility] Neuro - Dr. Rajan -Last consult appt in Jun 2023 with plan to order brain MRI -Continues on nortriptyline 25mg nightly through Neuro -Continues Excedrin PRN Assessment & Plan (07/16/2023 11:44 AM EDT): -Head CT 10/07/22 read as enlarged sella with flattened pituitary. -Following with [facility] Neuro - Dr. Rajan -Last consult appt in Jun 2023 with plan to order brain MRI -Continues on nortriptyline 25mg nightly through Neuro -Encouraged Excedrin PRN Assessment & Plan (11/29/2022 10:29 PM EST): -Approx 2 months of intermittent GUNDERSON, varies in characteristic between dull to sharp -Associated symptoms include dizziness, previously followed by specialist, did not respond to meclizine -Consider GUNDERSON vs migraine vs vestibular anomaly vs other -Head CT 10/07/22 read as enlarged sella with flattened pituitary. Pt was referred to [facility] Neuro but did not hear back regarding appt -Called Neuro with pt during visit, appt scheduled for January 2023 -Continue with ibuprofen PRN for symptomatic relief Follow up in 1 month for PE, sooner as needed. Pt in agreement with plan. Chronic idiopathic constipation 08/11/2021 Assessment & Plan (02/22/2024 3:40 PM EDT): Planning to start OTC Fiber liquid. Will DC fiber lax tablet. Reviewed med use, encouraged good hydration Continue lifestyle interventions - reviewed high fiber diet Previous meds: Miralax, colace, senna, Fiber lax tablet Assessment & Plan (11/09/2023 4:10 PM EST): ?? Start Fiber lax 625mg daily. Reviewed med use, encouraged good hydration ?? Continue lifestyle interventions Previous meds: -Miralax, colace, senna Assessment & Plan (07/16/2023 11:42 AM EDT): ?? Senna 8.6mg, 2 tablets nightly as needed ?? 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 If she does not tolerate could consider mycolog vs. Calcitriol ointment. 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 Tabares in hematology at [facility] until [address] Kaylee [place] [facility]. 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 Plan to follow up 1 year. Assessment & Plan (11/09/2023 3:53 PM EST): ?? History of chronic leukopenia (at least since 2006) ?? Previously followed by Dr. Tabares in hematology at [facility] until 2019 ?? Currently following with Dr. Kaylee [facility]. 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 Plan to follow up 1 year. Assessment & Plan (03/26/2023 7:47 PM EDT): ?? History of chronic leukopenia (at least since 2006) ?? Previously followed by Dr. Tabares in hematology at [facility] until 2019 ?? Currently following with Dr. 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 Plan to follow up [id number] Benign paroxysmal positional vertigo 11/04/2010 Major depressive disorder, single episode 2009 Vitiligo 11/04/2010 Assessment & Plan (03/26/2023 7:42 PM EDT): ?? Followed by [facility] Derm, continue with Protopic 0.1% ointment BID to affected area Resolved Problems Problem Noted Date Diagnosed Date Resolved Date COVID-19 11/29/2022 02/22/2024 Assessment & Plan (11/30/2023 7:20 PM EST): Pt w respiratory symptoms ,normal VS only mild elevated diastolic BP possibly reactive w infection Here + covid 19 rapid test, neg flu -pt has obesity as connor factor within window x tx -05/2023 Chem wnl -Px paxlovid today -supportive tx -hydration -isolation x at least 5 days -day 6 can come out of isolation if feeling better but with N95 for at least 10 days from infection. -alarm signs and symptoms discussed -advised pt to hold on crestor until 3 days after completes tx w Paxlovid to avoid interactions Burn of trunk 09/29/2014 03/26/2023 Dyslipidemia 10/22/2013 03/26/2023 Encounters Date Type Department Care Team Description 02/02/2025 Refill [facility] MED & PEDS [address] [place] [address] Fabiola Bruce FNP Acquired hypothyroidism; Sleep disturbance 01/15/2025 9:45 AM EST Office Visit [facility] MEDICINE [address] [place] [address] Fabiola Bruce, CLINICAL EXERCISE SPECIALIST Acquired hypothyroidism (Primary Dx); Sleep disturbance; Healthcare maintenance 01/15/2025 Travel 01/14/2025 Telephone [facility] MED [facility] PEDS [address] [place] [address] Miguel Hudson MA Chart Prep 01/14/2025 Telephone [facility] MEDICINE [address] [place] [address] Fabiola Bruce FNP 12/17/2024 Telephone [facility] MED [facility] PEDS [address] [place] [address] Fabiola Bruce, CLINICAL EXERCISE SPECIALIST November12/17/2024 Travel 11/25/2024 9:00 AM EST Nurse Only [facility] MEDICINE [address] [place] [address] Milagros Rogers RN Encounter for immunization 11/25/2024 Travel from Last 3 Months Immunizations Name Administration Dates Next Due Hep B, adult 11/25/2024, 4,05/20/2024,2012 Influenza injectable quadriv alent IIV4 with preservative 10/08/2018,08/15/2016 Influenza injectable quadriv alent preservative free 09/23/2020,10/10/2014 Influenza, IIV3, injectable 08/18/2011, 0 Influenza, Split (incl. mylene fied surface antigen) 08/22/2013 Pfizer Covid-19 Vaccine 12+ 12/09/2021 Tdap 05/08/2024,08/22/2013 Family History Medical History Relation Name Comments Vitiligo Brother Alzheimer's disease Father Heart attack Mother Heart attack Sister 1 3 heart attacks Uterine cancer Sister 2 Relation Name Status Comments Brother Father Mother Sister 1 Sister 2 Alive Social History Tobacco Use Types Packs/Day Years Used Date Smoking Tobacco: Never Passive Smoke Exposure: Never Smokeless Tobacco: Never Tobacco Cessation:Counseling Given: Not Answered Alcohol Use Standard Drinks/Week Comments Never 0 (1 standard drink = 0.6 oz pur e alcohol) Depression Answer Date Recorded Patient Health Questionnaire-9 Score 1 01/15/2025 Patient Health Questionnaire-9 Score 1 01/15/2025 Last PHQ-9: Questionnaire Data Not on file 0 01/15/2025 Housing Stability Answer Date Recorded What is your housing situation today? I have steve stallworth 01/15/[address] you li ve. Do you have problems with any of the following? None of the above 01/15/2025 Food Insecurity Answer Date Recorded Within the past 12 months, y ou worried that your food would run out before you got money to buy more: Never True 01/15/2025 Within the past 12 months,th e food you bought just didn't last and you didn't have enough money to get more: Never True Transportation Answer Date Recorded In the past 12 months, has l ack of transportation kept you from medical appts, meetings, work or from getting things needed for daily living? No 01/15/2025 Utilities Answer Date Recorded In the past 12 months, has t he electric, gas, oil or water company threatened to shut off services in your home? No 01/15/2025 Depression Answer Date Recorded Patient Health Questionnaire-2 Score 0 01/15/2025 Internet Access Answer Date Recorded Internet Access Q1 Yes 01/15/2025 Internet Access Q2 Not on file 01/15/2025 Comments Unknown Sex and Gender Information Value Date Recorded Sex Assigned at Female 09/26/2022 10:18 AM EDT Legal Sex Female 10:18 AM EDT Gender Identity Female 04/01/2023 4:33 PM EDT Sexual Orientation Choose not to disclose 2021 10:18 AM EDT Last Filed Vital Signs Vital Sign Reading Time Taken Comments Blood Pressure 124/78 01/15/2025 10:03 AM EST Pulse 60 01/15/2025 10:03 AM EST Temperature 36.6 ??C (97.8 ??F) 01/15/2025 10:[address] Respiratory Rate 20 01/15/2025 10:03 AM EST Oxygen Saturation 98% 01/15/2025 10:03 AM EST Inhaled Oxygen Concentration - - Weight 83.6 kg (184 lb 4 oz) 01/15/2025 10:03 AM EST Height 152.4 cm (5') 01/15/2025 10:03 AM EST Body Mass Index 35.98 01/15/2025 10:03 AM EST Plan of Treatment Upcoming Encounters Date Type Department Care Team (Late st Contact Info) Description 04/16/2025 10:00 AM EDT Office Visit [facility] MEDICINE [address] [place] [address] Fabiola Bruce, CORINA [address] [place] [address] Health Maintenance Due Date Last Done Comments CT Colonography 1974 FIT DNA/Cologuard 1974 FIT 1974 FOBT 1975 Sigmoidoscopy 1974 Alcohol/Substance Use Screening 1986 Family Planning (PISQ) 1989 Pneumococcal Vaccine: 50+ Years (1 of 2 - PCV) 1993 Zoster Vaccines (1 of 2) 1993 COVID-19 Vaccine ( - season) 2024 12/09/2021, 05/16/2021, 04/25/2021 Influenza Vaccine (#1) 2024 , 10/08/2018, 08/15/2016, Additional history exists Pap Smear 02/14/2025 02/14/2022, 03/11/2021, 01/25/2022 Mammogram 07/24/2025 07/24/2024, 06/28, 06/13/2022, Additional history exists Depression Screening 01/15/2026 01/15/2025, 01/15/20 25 SDOH Screening 01/15/2026 01/15/2025 Tobacco Screening 01/15/2026 01/15/2025 Colonoscopy 10/29/2026 10/29/2021 Colorectal Cancer Screening 10/29/2026 Cervical Cancer Screening 02/14/2027 HPV/Cotest 02/14/2027 02/14/2022 DTaP/Tdap/Td Vaccines (3 - Td or Tdap) 05/08/2034 05/08/2024, 08/22/2013 RSV Patients and Patients Aged 60 years or older (1 - 1-dose 75+ series) 2049 HIV Screening Completed 02/21/2024, 02/26, 09/23/2020, Additional history exists Hepatitis C Screening Completed 02/21/2024, 023 Hepatitis B Vaccines Completed 11/25/2024, 06/24/2024, 05/20/2024, Additional history exists HIB Vaccines Aged Out No longer eligi ble based on patient's age to complete this topic HPV Vaccines Aged Out No longer eligi ble based on patient's age to complete this topic Hepatitis A Vaccines Aged Out No long er eligible based on patient's age to complete this topic IPV Vaccines Aged Out No longer eligi ble based on patient's age to complete this topic Meningococcal Vaccine Aged Out No sanket janis eligible based on patient's age to complete this topic RSV under 20 months Aged Out No longe r eligible based on patient's age to complete this topic Rotavirus Vaccines Aged Out No longer eligible based on patient's age to complete this topic Procedures Procedure Name Priority Date/Time Associated Diagnosis Comments TSH W/REFLEX TO FT4 Routine 02/11/2025 3 :16 PM EDT Acquired hypothyroidism BI MAMMOGRAM SCREENING TOMOSYNTHESIS BILATERAL Routine 07/24/2024 10:30 AM EDT HEPATITIS C VIRAL RNA, QUANTITATIVE, REAL-TIME PCR Routine 02/21/2024 12:25 PM EDT Healthcare maintenance HIV 1/2 ANTIGEN/ANTIBODY, FOURTH GENERATION W/RFL Routine 02/21/2024 12:25 PM EDT Healthcare maintenance THINPREP IMAGING PAP AND HPV MRNA E6/E7, WITH CT/NG, TRICHOMONAS Routine 02/14/2022 2:43 PM EDT HM COLONOSCOPY Routine 10/29/2021 Healthcare maintenance from Last 3 Months or Most Recently Relevant to Health Maintenance Results * (ABNORMAL) TSH W/Reflex to FT4 (02/11/2025 3:16 PM EDT) TSH reflex Free T4 4.69(H) 0.32 - 4.0 uIU/mL [facility] Blood Venous blood specimen / Unknown 02/11/2025 3:16 PM EDT 02/11/2025 4:45 PM EDT us Fabiola Bruce CLINICAL EXERCISE SPECIALIST LAB BLOOD ORDERABLES Final Res ult [facility] [address] [place] [address] [phone] * BI Mammogram Screening Tomosynthesis Bilateral (07/24/2024 10:30 AM EDT) Anatomical Region Laterality Modality Breast Bilateral Mammography 07/24/2024 10:3 0 AM EDT Narrative 08/16/2024 4:43 PM EDT ? [facility] ? [address] ?[place] [address] ? Mammography Report ? Signed ? Patient: Ted,Jeane ?MR#: [id number] ?? [id number] ? : 1975 ?Acct:[id number] ? Age/Sex: 48 / F ?ADM Date: 07/24/24 ? Loc: HO.MAMMO ? Attending Dr: Fabiola Bruce CLINICAL EXERCISE SPECIALIST ? Ordering Physician: Fabiola Bruce CLINICAL EXERCISE SPECIALIST ?Results: 2Benig ?? n Findings ? Date of Service: 07/24/24 ?Follow Up: 1 Year From Orig ?? inal Mammogram ? Procedure(s): MM tomosynthesis screening BI ?? Accession Number(s): [id number] ? cc: Fabiola Bruce CLINICAL EXERCISE SPECIALIST ? EXAMINATION: ?? MM SCREENING DIGITAL BREAST TOMOSYNTHESIS, BILATERAL ? CLINICAL INFORMATION: ? Screening. Asymptomatic. ? COMPARISON: ?? Mammography: Comparison is made with available priors ? TECHNIQUE: ?? Digital breast tomosynthesis is performed in both the craniocaudal and ?? mediolateral oblique views along with computer-aided detection (CAD). ? Synthesized 2D images are generated from the tomosynthesis. ? FINDINGS: ?? There are scattered areas of fibroglandular density (ACR BI-RADS breast ?? composition Category b). ?? Right marker clip. ?? There are no significant masses, abnormal calcifications, or other ?? abnormalities. ? MM/MM tomosynthesis screening BI ?? IMPRESSION: ?? No mammographic evidence of malignancy. ? ASSESSMENT: ? BI-RADS BI-RADS 2 - Benign Findings ? RECOMMENDATION: ?? Routine annual mammography screening. ? 1 year F/U ? This examination should not preclude the clinical evaluation of a ?? suspicious palpable abnormality. ? This patient's information was entered into a reminder system with a ?? target due date for their next mammogram. ? Electronically signed by: ??Norma Sheehan DO ??08/16/2024 04:40 PM EDT ?? RP ? Dictated By: ?Norma Sheehan DO ? Signed By: ?<Electronically signed by Norma Sheehan DO in OV> ? 08/16/24 1640 ? DD/ 1030 ? TD/TT: 07/24/24 1051 ? Hotel [employer]ational Facilities Manager: ? Procedure Note Tayler, Image - 08/16/2024 [facility] [address] [place] [address] [place] [address] Mammography Report Signed Patient: Sherri Jean#: [id number] : 1975Acct:[id number] Age/Sex: 48 / FADM Date: 07/24/24 Loc: HO.MAMMO Attending Dr: Fabiola Bruce CLINICAL EXERCISE SPECIALIST Ordering Physician: Fabiola Bruce FNPResults: 2Benig n Findings Date of Service: 07/24/24Follow Up: 1 Year From Orig inal Mammogram Procedure(s): MM tomosynthesis screening BI Accession Number(s): [id number] cc: Fabiola Bruce EXAMINATION: MM SCREENING DIGITAL BREAST TOMOSYNTHESIS, BILATERAL CLINICAL INFORMATION: Screening. Asymptomatic. COMPARISON: Mammography: Comparison is made with available priors TECHNIQUE: Digital breast tomosynthesis is performed in both the craniocaudal and mediolateral oblique views along with computer-aided detection (CAD). Synthesized 2D images are generated from the tomosynthesis. FINDINGS: There are scattered areas of fibroglandular density (ACR BI-RADS breast composition Category b). Right marker clip. There are no significant masses, abnormal calcifications, or other abnormalities. MM/MM tomosynthesis screening BI IMPRESSION: No mammographic evidence of malignancy. ASSESSMENT: BI-RADS BI-RADS 2 - Benign Findings RECOMMENDATION: Routine annual mammography screening. 1 year F/U This examination should not preclude the clinical evaluation of a suspicious palpable abnormality. This patient's information was entered into a reminder system with a target due date for their next mammogram. Electronically signed by: Norma Sheehan DO 08/16/2024 04:40 PM EDT Dictated By: Norma Sheehan DO Signed By: <Electronically signed by Norma Sheehan DO in OV> 08/16/24 1640 DD/ 1030 TD/TT: 07/24/24 1051 [facility] [employer] [employer]ilities Manager: Fabiola Bruce CLINICAL EXERCISE SPECIALIST IMG BI PROCEDURES Edited Resul t - Final * Hepatitis C Viral RNA, Quantitative, Real-Time PCR (02/21/2024 12:25 PM EDT) Hepatitis C Viral Load <15 NOT DETECTED NOT DETECTED IU/mL [facility] HCV Log PCR <1.18 NOT DETECTED NOT DETECTED Log IU/mL [facility] Comment:This test was perfor med using Real-Time Polymerase ChainReaction.Reportable Range: 15 IU/mL to 100,000,000 IU/mL(1.18 Log IU/mL to 8.00 Log IU/mL).The analytical performance characteristics of thisassay have been determined by [employer].The modifications have not been cleared or approved bythe FDA. This assay has been validated pursuant to theCLIA regulations and is used for clinical purposes.For more information on this test, go to:http://education.Solovis/faq/NLS66x8(This link is being provided for informational/educational purposes only.)THIS TEST WAS PERFORMED AT:[address] [place] [id number] DELGADO MD Blood 02/21/2024 12:2 5 PM EDT 02/21/2024 1:24 PM EDT us Fabiola ARRIAGA LAB BLOOD ORDERABLES Final Res ult [facility] [address] [place] [address] [phone] * HIV-1/2 Antigen and Antibodies, Fourth Generation, with Reflexes (02/21/2024 12:25 PM EDT) HIV AB/AG Nonreactive Nonreactive [facility] Comment:HIV-1 p24 Ag and/or HIV-1/HIV-2 Ab not detected.A test result that is nonreactive does not exclude thepossibility of exposure to or infection with HIV-1 and/orHIV-2. Nonreactive results in this assay for individualswith prior exposure to HIV-1 and/or HIV-2 may be due toantigen and antibody levels that are below the limit ofdetection of this assay.The [employer] HIV Ag/Ab Combo assay result andsupplemental assay results should be interpreted inconjunction with the patient's clinical presentation,history and other laboratory results. If the results areinconsistent with clinical evidence, additional testing issuggested to confirm the result. Blood Venous blood specimen / Unknown 02/21/2024 12:25 PM EDT 02/21/2024 1:24 PM EDT us Fabiola TRUONGP LAB BLOOD ORDERABLES Final Res ult [facility] [address] [place] [address] [phone] * THINPREP TIS PAP AND HPV mRNA E6/E7, CT/NG, TRICH (02/14/2022 2:43 PM EDT) Chlamydia trachomatis RNA, TMA, Urogenital NOT DETECTED NOT DETECTED [facility] Clinical Information: None given [facility] COMMENT SEE COMMENT [facility] Comment: The analytical performance characteristics of this assay, when used to test SurePath(TM) specimens have been determined by [employer]. The modifications have not been cleared or approved by the FDA. This assay has been validated pursuant to the CLIA regulations and is used for clinical purposes. ?? For additional information, please refer to https://education.Solovis/faq/STE033 (This link is being provided for information/ educational purposes only.) ?? COMMENT SEE COMMENT [facility] Comment: EXPLANATORY NOTE: ? The Pap is a screening test for cervical cancer. It is ?? not a diagnostic test and is subject to false negative ?? and false positive results. It is most reliable when a ?? satisfactory sample, regularly obtained, is submitted ?? with relevant clinical findings and history, and when ?? the Pap result is evaluated along with historic and ?? current clinical information. ?? COMMENT: This Pap test has been evaluated with computer assisted technology. [facility] Field Horticultural Specialty Grower: SEE COMMENT [facility] Comment: RXB, CT(ASCP) CT screening location: [address] ??[id number] HPV nRNA E6/E7 Not Detected Not Detected [facility] Comment: Methodology: Traffic Agent-Mediated Amplification This assay detects E6/E7 viral messenger RNA (mRNA) from 14 high-risk HPV types (16,18,31,33,35,39,45,51,52,56,58,59,66,68). ? The analytical performance characteristics of this assay have been determined by [employer]. The modifications have not been cleared or approved by the FDA. This assay has been validated pursuant to the CLIA regulations and is used for clinical purposes. ?? For additional information, please refer to http://EarlyTracks.Pixel Velocity.Numonyx/faq/YWB679c2 (This link if provided for information/ educational purposes only.) Infection Shift in vaginal luis carlos suggestive of bacterial vaginosis. [facility] Interpretation/Re sult: Negative for intraepithelial lesion or malignancy. [facility] LMP: NONE GIVEN [facility] Neisseria gonorrhoeae RNA, TMA, Urogenital NOT DETECTED NOT DETECTED [facility] Prev. BX: NONE GIVEN [facility] Prev. PAP: NONE GIVEN [facility] SOURCE: Cervix [facility] Statement Of Adequacy: SEE COMMENT [facility] Comment: Satisfactory for evaluation. Endocervical/transformation zone component present. Partially obscuring inflammation Age and/or menstrual status not provided Trichomonas vaginalis, QL, TMA, PAP Vial NOT DETECTED NOT DETECTED [facility] Comment: The analytical performance characteristics of this assay have been determined by [employer]. The modifications have not been cleared or approved by the FDA. This assay has been validated pursuant to the CLIA regulations and is used for clinical purposes. ?? For additional information, please refer to http://EarlyTracks.Solovis/ faq/Trichomonastma (This link is being provided for information/ educational purposes only.) ?? 02/14/2022 2:43 PM EDT Daniela Castellon MINES INSPECTOR LAB PATHOLOGY ORDERABLES Final Result [facility] [address] * (ABNORMAL) Colonoscopy (10/29/2021) Colonoscopy Abnormal(A ) Normal Dipti Maravilla HEALTH MAINTENANCE Final Result from Last 3 Months or Most Recently Relevant to Health Maintenance Insurance N PARTIAL Care Teams Equipment Tester Relationship Specialty Start Date End Date Fabiola Bruce FNP [address] [place] [id number] PCP - General Family Medicine 07/22/22
--- OUTSIDE RECORDS SUMMARY | 2025-02-11 18:08 | XMS_ITS | Encounter Summary ---
Author Organization [employer] Address [address] [facility] 7t [place] [address] Care Team Providers Care Auto Body Straightener Name Role Phone Fabiola Bruce CORINA Primary Care Provider [phone] Reason for Visit * Reason Onset Date Comments Chart Prep 01/14/2025 Encounter Details Date Type Department Care Team (Late st Contact Info) Description 01/14/2025 Telephone [facility] [address] [place] [address] Miguel Hudson MA Chart Prep Social History Tobacco Use Types Packs/Day Years Used Date Smoking Tobacco: Never Passive Smoke Exposure: Never Smokeless Tobacco: Never Alcohol Use Standard Drinks/Week Comments Never 0 [...] AM EDT documented as of this encounter Miscellaneous Notes * Telephone Encounter - Miguel Calzada MA - 01/14/2025 1:27 PM EST Chart Prep Labs: done Images: done Vaccines due: yes Referrals: complete Screenings: N/A Overdue care gaps: Sbirt, SDOH, PHQ-9, PISQ documented in this encounter Plan of Treatment Upcoming Encounters Date Type Department Care Team (Late st Contact Info) Description 04/16/2025 10:00 AM EDT Office Visit [facility] MED[facility] [address] [place] [address] Fabiola Bruce FNP [address] [place] [address] documented as of this encounter Visit Diagnoses Not on filedocumented in this encounter Additional Health Concerns Assessment Noted Time PHQ-9 Depression Total Score: 2 11/08/20 23 11:38 AM EST documented as of this encounter Care Teams Auto Body Straightener Relationship Specialty Start Date End Date Fabiola Bruce FNP [address] [place] [address] PCP - General Family Medicine 07/22/22 documented as of this encounter
--- OUTSIDE RECORDS SUMMARY | 2025-02-11 18:08 | XMS_ITS | Clinical Summary ---
Author Organization [facility] Address [address] [place] [address] Care Team Providers Care Insurance Solicitor Name Role Phone Unavailable Primary Care Provider Unavailabl e Social History Tobacco Use Types Packs/Day Years Used Date Smoking Tobacco: Never Assessed Comments Unknown Sex and Gender Information Value Date Recorded Sex Assigned at Not on file Legal Sex Female 8:16 PM EST Gender Identity Not on file Sexual Orientation Not on file Plan of Treatment Health Maintenance Due Date Last Done Comments Breast Cancer Screening 1974 DTaP,Tdap,and Td Vaccines (1 - Tdap) 1993 Hepatitis B Vaccines (1 of 3 - 19+ 3-dose series) 1993 Cervical Cancer Screening: P ap Smear 1995 COVID-19 Vaccine ( - 2023-2 5 season) 2024 Influenza Vaccine (#1) 2024 Pneumococcal Vaccine: 50+ Ye ars (1 of 1 - PCV) 2024 Zoster Vaccines (1 of 2) 2024 HIB Vaccines Aged Out No longer eligi [...] on patient's age to complete this topic MMR Vaccines Aged Out No longer eligi ble based on patient's age to complete this topic Meningococcal ACWY Vaccine Aged Out N o longer eligible based on patient's age to complete this topic Meningococcal B Vacine Aged Out No lo nger eligible based on patient's age to complete this topic Pneumococcal Vaccine: Pediat rics (0 to 5 Years) and At-Risk Patients (6 to 64 Years) Aged Out No longer eligible b ased on patient's age to complete this topic RSV Immunization Patients Un celina 20 months Aged Out No longer eligible b ased on patient's age to complete this topic Varicella Vaccines Aged Out No longer eligible based on patient's age to complete this topic
--- OUTSIDE RECORDS SUMMARY | 2025-02-11 18:08 | XMS_ITS | Encounter Summary ---
Author Organization [employer] Address [address] [facility] 7t [place] [address] Care Team Providers Care Reclamation Kettle Tender Name Role Phone Fabiola Bruce CORINA Primary Care Provider [phone] Encounter Details Date Type Department Care Team (Latest Contact Info) Description 01/15/2025 Travel Social History Tobacco Use Types Packs/Day Years [...] Description 04/16/2025 10:00 AM EDT Office Visit [facility] MED[facility] [address] [place] [address] Fabiola Bruce FNP [address] [place] [address] documented as of this encounter Visit Diagnoses Not on filedocumented in this encounter Additional Health Concerns Assessment Noted Time PHQ-9 Depression Total Score: 1 01/15/20 25 10:09 AM EST documented as of this encounter Care Teams Reclamation Kettle Tender Relationship Specialty Start Date End Date Fabiola Bruce FNP [address] [place] [address] PCP - General Family Medicine 07/22/22 documented as of this encounter
--- OUTSIDE RECORDS SUMMARY | 2025-02-11 18:08 | XMS_ITS | Encounter Summary ---
Author Organization [employer] [facility] Address [address] [place] [address] [address] [place] [address] Care Team Providers Care Rn Document Improvement Name Role Phone Fabiola Bruce Primary Care Provider [phone] Encounter Details Date Type Department Care Team (Latest Contact Info) Description 05/13/2019 Abstract [facility] Dental, Provider, DDS Social History Tobacco Use Types Packs/Day Years [...] Upcoming Encounters Date Type Department Care Team ( st Contact Info) Description 04/16/2025 10:00 AM EDT Office Visit [facility] [address] [place] [address] Fabiola Bruce FNP [address] [place] [address] documented as of this encounter Visit Diagnoses Not on filedocumented in this encounter Care Teams Rn Document Improvement Relationship Specialty Start Date End Date Fabiola Bruce FNP [address] [place] [address] PCP - General Family Medicine 07/22/22 documented as of this encounter
--- OUTSIDE RECORDS SUMMARY | 2025-02-11 18:08 | XMS_ITS | Encounter Summary ---
Author Organization [email or web address] [facility] Address [address] [facility] 7t [place] [address] Care Team Providers Care Complaint Manager Name Role Phone Fabiola Bruce Primary Care Provider [phone] Reason for Visit * Reason Comments Med Refill Encounter Details Date Type Department Care Team (Late st Contact Info) Description 03/01/2023 Refill [facility] [address] [place], [place] [phone] Ashlyn Alexandre MD [address] [place] [address] Acute cough Social History Tobacco Use Types Packs/Day Years Used Date Smoking Tobacco: Never Smokeless Tobacco: Never Alcohol Use Standard Drinks/Week Comments Never 0 (1 standard drink = 0.6 oz pur e alcohol) Comments Unknown Sex and Gender Information Value [...] Description 04/16/2025 10:00 AM EDT Office Visit [facility] [address] [place], [place] [phone] Fabiola Bruce FNP [address] [place], [place] [phone] documented as of this encounter Visit Diagnoses Diagnosis Acute cough documented in this encounter Care Teams Complaint Manager Relationship Specialty Start Date End Date Fabiola Bruce FNP [address] [place] [address] PCP - General Family Medicine 07/22/22 documented as of this encounter
--- OUTSIDE RECORDS SUMMARY | 2025-02-11 18:08 | XMS_ITS | Encounter Summary ---
Author Organization [employer] Address [address] [facility] 7t [place] [address] Care Team Providers Care Auto Mechanic Supervisor Name Role Phone Fabiola Bruce Primary Care Provider [phone] Encounter Details Date Type Department Care Team (Latest Contact Info) Description 01/15/2025 9:45 AM EST Office Visit [facility] [address] [place] [address] Fabiola Bruce FNP [address] [place] [address] Acquired hypothyroidism (Primary Dx); Sleep disturbance; Healthcare maintenance Social History Tobacco Use Types Packs/Day Years [...] AM EDT documented as of this encounter Last Filed Vital Signs Vital Sign Reading [...] Mass Index 35.98 01/15/2025 10:03 AM EST documented in this encounter Progress Notes * CORINA García - 01/15/2025 9:45 AM EST Subjective: Jeane Jean is a 49 y.o. female w/ PMH vitiligo, hypothyroid, chronic neutropenia, hemorrhoids and constipation who presents to the office for a follow up visit. HPI Last PCP visit: 09/20/24 for televisit (f/up sleep) Sleep: continues with magnesium with good effect. Asleep within 30 minutes of going to bed, waking up well rested. Hypothyroid: restarted on levo 25mcg daily for hypothyroid. TSH normalized after re-starting medication. Hep B non-immune, completed series (3/3) on 11/25/24. Plan to re-test titers. Past Surgical History: Procedure Laterality Date POLYPECTOMY Uterus RECTAL SURGERY 05/02/2022 [facility] - Dr. Maravilla. 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 Employment/Education: [employer], working 40 hours/week Diet/exercise: work is physically active Substance use: -alcohol: none -tobacco: none -opioids: none Contraception: BTL (18 years ago) Mental health: denies SI/HI/thoughts of self harm Allergies Allergen Reactions Amoxicillin Anaphylaxis Acetaminophen Nausea And Vomiting and Other Sulfamethoxazole Rash Other reaction(s): Rash Trimethoprim Hives Other reaction(s): Rash, Rash Other reaction(s): Rash, Rash Review of Systems Constitutional: Negative for chills and fever. HENT: Negative for congestion. Respiratory: Negative for wheezing. Cardiovascular: Negative for chest pain and palpitations. Psychiatric/Behavioral: Negative for sleep disturbance and suicidal ideas. Visit Vitals BP 124/78 (BP Location: Left arm, Patient Position: Sitting, BP Cuff Size: Large adult) Pulse 60 Temp 97.8 ??F (36.6 ??C) (Oral) Resp 20 Ht 5' (1.524 m) Wt 184 lb 4 oz (83.6 kg) LMP 02/24/2024 (Exact Date) SpO2 98% BMI 35.98 kg/m?? Smoking Status Never BSA 1.88 m?? Physical Exam Constitutional: Appearance: Normal appearance. HENT: Head: Atraumatic. Right Ear: External ear normal. Left Ear: External ear normal. Cardiovascular: Rate and Rhythm: Normal rate and regular rhythm. Pulmonary: Effort: Pulmonary effort is normal. Breath sounds: Normal breath sounds. Neurological: Mental Status: She is alert and oriented to person, place, and time. Psychiatric: Mood and Affect: Mood normal. Behavior: Behavior normal. Problem List Items Addressed This Visit Nervous Sleep disturbance Current Assessment & Plan Cont magnesium 400 mg nightly Well controlled with current regimen Continue with sleep hygiene interventions Endocrine/Metabolic Acquired hypothyroidism - Primary Overview Lab Results Component Value Date TSH 3.35 09/30/2024 Current Assessment & Plan Continues on levo 25mcg daily Other Healthcare maintenance Overview Routine Health Maintenance Optometry: [facility] eval Dec 2023. Next Dec 2024 Dental: established with dental home BMD: starting at 65 y/o Last PE: 05/08/24 Routine Cancer Screening Breast CA: Mammogram BIRADS 2 in Jun 2024 Cervical CA: Pap NIL/HPV neg 01/2022 Colonoscopy: 10/29/[address] Dipti Maravilla at [facility]. 2mm polyp in cecum. Recommend repeatcolonoscopy in 5 years. Relevant Orders Hepatitis B Core Antibody, Total Hepatitis B Surface Antibody, Qualitative Hepatitis B surface antigen, EIA Follow up: 3 months, sooner as needed documented in this encounter Miscellaneous Notes * Assessment & Plan Note - CORINA García - 01/16/2025 8:50 PM ESTAssociated Problem(s): Acquired hypothyroidism Continues on levo 25mcg daily * Assessment & Plan Note - CORINA García - 01/16/2025 8:50 PM ESTAssociated Problem(s): Sleep disturbance Cont magnesium 400 mg nightly Well controlled with current regimen Continue with sleep hygiene interventions documented in this encounter Plan of Treatment Upcoming Encounters Date Type Department Care Team (Late st Contact Info) Description 04/16/2025 10:00 AM EDT Office Visit [facility] [address] [place], [place] [phone] Fabiola Bruce FNP [address] [place] [address] Scheduled Orders Name Type Priority Associated Diagnoses Orde r Schedule Hepatitis B Core Antibody, Total Lab Routine Healthcare maintenance Expected: 01/15/2025 (Approximate), Expires: 01/15/2026 Hepatitis B Surface Antibody, Qualitative Lab Routine Healthcare maintenance Expected: 01/15/2025 (Approximate), Expires: 01/15/2026 Hepatitis B surface antigen, EIA Lab Routine Healthcare maintenance Expected: 01/15/2025 (Approximate), Expires: 01/15/2026 documented as of this encounter Visit Diagnoses Diagnosis Acquired hypothyroidism- Primary Unspecified hypothyroidism Sleep disturbance Unspecified sleep disturbance Healthcare maintenance documented in this encounter Additional Health Concerns Assessment Noted Time PHQ-9 Depression Total Score: 1 01/15/20 25 10:09 AM EST documented as of this encounter Care Teams Auto Mechanic Supervisor Relationship Specialty Start Date End Date Fabiola Bruce FNP [address] [place] [id number] PCP - General Family Medicine 07/22/22 documented as of this encounter
--- OUTSIDE RECORDS SUMMARY | 2025-02-11 18:08 | XMS_ITS | Encounter Summary ---
Author Organization [employer] Address [address] [facility] 7t [place] [address] Care Team Providers Care Electric Gas Appliances Demonstrator Name Role Phone Fabiola Bruce Primary Care Provider Encounter Details Date Type Department Care Team ([facility] st Contact Info) Description 01/14/2025 Telephone [facility] MED[facility]INE [address] [place] [address] Fabiola Bruce FNP [address] [place] [address] Social History Tobacco Use Types Packs/Day Years [...] encounter Miscellaneous Notes * Telephone Encounter - Buffy Krishnanona - 01/14/2025 8:49 AM EST Called Patient advised only HSN Partial active. Patient said she has well sense under but doesn't have the numbers or card yet. Patient was advised to come in early and go to insurance enrollment to get that information. Patient understood and agreed. documented in this encounter Plan of Treatment Upcoming Encounters Date Type Department Care Team (Late st Contact Info) Description 04/16/2025 10:00 AM EDT Office Visit [facility] [address] [place] [address] Fabiola Bruce FNP [address] [place] [address] documented as of this encounter Visit Diagnoses Not on filedocumented in this encounter Additional Health Concerns Assessment Noted Time PHQ-9 Depression Total Score: 2 11/08/20 23 11:38 AM EST documented as of this encounter Care Teams Electric Gas Appliances Demonstrator Relationship Specialty Start Date End Date Fabiola Bruce FNP [address] [place] [address] PCP - General Family Medicine 07/22/22 documented as of this encounter
--- OUTSIDE RECORDS SUMMARY | 2025-02-11 18:08 | XMS_ITS | Encounter Summary ---
Author Organization [employer] Address [address] [facility] 7t [place] [address] Care Team Providers Care Industrial/Organizational Psychologist Name Role Phone Fabiola Bruce Primary Care Provider [phone] Reason for Visit * Reason Comments Med Refill Encounter Details Date Type Department Care Team ([facility] st Contact Info) Description 02/02/2025 Refill [facility] [address] [place], [place] [phone] Fabiola Bruce FNP [address] [place] [address] Acquired hypothyroidism; Sleep disturbance Social History Tobacco Use Types Packs/Day Years [...] Description 04/16/2025 10:00 AM EDT Office Visit [facility] [address] [place] [address] Fabiola Bruce FNP [address] [place] [address] documented as of this encounter Visit Diagnoses Diagnosis Acquired hypothyroidism Unspecified hypothyroidism Sleep disturbance Unspecified sleep disturbance documented in this encounter Additional Health Concerns Assessment Noted Time PHQ-9 Depression Total Score: 1 01/15/20 25 10:09 AM EST documented as of this encounter Care Teams Industrial/Organizational Psychologist Relationship Specialty Start Date End Date Fabiola Bruce FNP [address] [place] [address] PCP - General Family Medicine 07/22/22 documented as of this encounter
[2025-02-11 18:15] LABS: Free T4 (Free Thyroxine) 0.83 ng/dL (0.71-1.85)
[2025-02-12 08:36] LABS: HBS Num1 76.74 mIU/mL (0-7.99); HBc Num1 0.08 S/CO (0.00-0.79); HBsAGNum1 0.29 S/CO (0.00-0.99); Hepatitis B Core Antibody Nonreactive (Nonreactive); Hepatitis B Surface Antigen Negative (Negative); ~Hepatitis B Surface Antibody REACTIVE (Nonreactive)
== END 2025-02-11 15:13 | disposition home or self-care (01) ==
LOC: HO.HHCL 15:12
PROVIDERS: Visit Provider Registered Nurse
DX: Z00.00 Encounter for general adult medical examination without abnormal findings (principal); E03.9 Hypothyroidism, unspecified
CPT/HCPCS: 36415; 84439; 84443; 86704; 86706; 87340

== ENCOUNTER 2025-04-16 11:17 | Outpatient (REF) | payer OTHER, SELFPAY ==
--- OUTSIDE RECORDS SUMMARY | 2025-04-16 12:34 | XMS_ITS | Encounter Summary ---
Author Organization [employer] Address [address] [facility] 7t [place] [address] Care Team Providers Care Mud Car Worker Name Role Phone SheliaFabiola parsons CORINA Primary Care Provider [phone] Reason for Visit * Reason Comments Med Refill Encounter Details Date Type Department Care Team (Late st Contact Info) Description 03/01/2023 Refill [facility] [address] [place] [address] Ashlyn Alexandre MD [address] [place] [address] Acute cough Social History Tobacco Use Types [...] Care Team (Late st Contact Info) Description 07/21/2025 9:00 AM EDT Office Visit [facility] [address] [place] [address] Radha Cardozo, OD [address] [place] [address] documented as of this encounter Visit Diagnoses Diagnosis Acute cough documented in this encounter Care Teams Mud Car Worker Relationship Specialty Start Date End Date Fabiola Bruce FNP [address] [place] [address] PCP - General Family Medicine 07/22/22 documented as of this encounter
--- OUTSIDE RECORDS SUMMARY | 2025-04-16 12:34 | XMS_ITS | Encounter Summary ---
Author Organization [employer] Address [address] [place] [address] Care Team Providers Care Truck Caterer Name Role Phone Fabiola Bruce Primary Care Provider [phone] Reason for Visit * Reason Onset Date Comments Chart Prep 04/15/2025 Encounter Details Date Type Department Care Team ([facility] Contact Info) Description 04/15/2025 Telephone [facility] [address] [place], [place] [phone] Fabiola Bruce FNP [address] [place], [place] [id number] Chart Prep Social History Tobacco Use Types [...] Telephone Encounter - Miguel Calzada [place] - 04/15/2025 2:09 PM EDT Chart Prep Labs: not done Images: done Referrals: complete Vaccines due: Covid, Flu, PCV20, and Zoster Screenings: LMP Overdue care gaps: SBIRT, Disability screen, and PISQ documented in this encounter Plan of Treatment Upcoming Encounters Date Type Department Care Team (Late st Contact Info) Description 07/21/2025 9:00 AM EDT Office Visit [facility] [address] [place] [address] Cas, Radha, OD [address] [place] [address] documented as of this encounter Visit Diagnoses Not on filedocumented in this encounter Additional Health Concerns Assessment Noted Time PHQ-9 Depression Total Score: 1 01/15/20 10:09 AM EST documented as of this encounter Care Teams Truck Caterer Relationship Specialty Start Date End Date Fabiola Bruce FNP [address] [place] [address] PCP - General Family Medicine 07/22/22 documented as of this encounter
--- OUTSIDE RECORDS SUMMARY | 2025-04-16 12:34 | XMS_ITS | Encounter Summary ---
Author Organization [facility] [facility] Address [address] [place] [address] [address] [place] [address] Care Team Providers Care Youtuber Name Role Phone Fabiola Bruce Primary Care Provider [phone] Reason for Referral * Imaging (Routine) - Pending Review Specialty Diagnoses / Procedures Referred By Jose soria Referred To Contact Radiology Diagnoses Acquired hypothyroidism Procedures US Thyroid Fabiola Bruce FNP [address] [place] [address] Phone: tel: fax: Referral ID Status Reason Start Date Expiration Date V isits Requested Visits Authorized [id number] Pending Review 04/16/2025 04/16/2026 1 1 Reason for Visit * Reason Comments Follow-up Encounter Details Date Type Department Care Team ([facility] st Contact Info) Description 04/16/2025 10:00 AM EDT Office Visit [facility] [address] [place] [address] Fabiola Bruce FNP [address] [place] [address] Healthcare maintenance (Primary Dx); Acquired hypothyroidism; Encounter for immunization; Myalgia Social History Tobacco Use Types Packs/Day Years [...] Sign Reading Time Taken Comments Blood Pressure 128/78 04/16/2025 10:29 AM EDT Pulse 58 04/16/2025 10:23 AM EDT Temperature 36.4 ??C (97.5 ??F) 04/16/2025 10:23 AM E DT Respiratory Rate 18 04/16/2025 10:23 AM EDT Oxygen Saturation 99% 04/16/2025 10:23 AM EDT Inhaled Oxygen Concentration - - Weight 83.7 kg (184 lb 8 oz) 04/16/2025 10:23 AM EDT Height 152.7 cm (5' 0.13 ) 04/16/2025 10:23 AM E DT Body Mass Index 35.88 04/16/2025 10:23 AM EDT documented in this encounter Plan of Treatment Upcoming Encounters Date Type Department Care Team (Late st Contact Info) Description 07/21/2025 9:00 AM EDT Office Visit [facility] [address] [place] [address] Radha Cardozo, OD [address] [place] [address] Scheduled Orders Name Type Priority Associated Diagnoses Orde r Schedule TSH W/Reflex to FT4 Lab Routine Healthcare maintenance Expected: 04/16/2025 (Approximate), Expires: 04/16/2026 Magnesium Lab Routine Healthcare maintenance Expected: 04/16/2025, Expires: 04/16/2026 Basic Metabolic Panel Lab Routine Healthcare maintenance Expected: 04/16/2025 (Approximate), Expires: 04/16/2026 Lipid Panel, Standard Lab Routine Healthcare maintenance Expected: 04/16/2025 (Approximate), Expires: 04/16/2026 Thyroid Imaging Routine Acquired hypothyroidism Expected: 04/16/2025, Expires: 04/16/2026 Creatine Kinase Isoenzymes (CK Isoenzymes) w/ Total CK Lab Routine Myalgia Expected: 04/16/2025 (Approximate), Expires: 04/16/2026 documented as of this encounter Visit Diagnoses Diagnosis Healthcare maintenance- Primary Acquired hypothyroidism Unspecified hypothyroidism Encounter for immunization Myalgia Unspecified myalgia and myositis documented in this encounter Additional Health Concerns Assessment Noted Time PHQ-9 Depression Total Score: 1 01/15/20 25 10:09 AM EST documented as of this encounter Care Teams Youtuber Relationship Specialty Start Date End Date Fabiola Bruce FNP [address] [place] [address] PCP - General Family Medicine 07/22/22 documented as of this encounter
--- OUTSIDE RECORDS SUMMARY | 2025-04-16 12:34 | XMS_ITS | Clinical Summary ---
Author Organization [employer] Address [address] [place] [address] Care Team Providers Care Wedding Coordinator Name Role Phone Fabiola Bruce CORINA Primary Care Provider [phone] Allergies Active Allergy Reactions Criticality Noted Date Comments Acetaminophen Nausea And Vomiting,Other 09/20/2017 Amoxicillin Anaphylaxis High 05/15/2018 Sulfamethoxazole Rash Low 03/22/2021 Other reaction(s): Rash Trimethoprim Hives Low 03/22/2021 Other reaction(s): Rash, Rash Other reaction(s): Rash, Rash Medications witch coty-glycerin (Tucks) pad Apply to anoretal area as needed up to 6 times daily or after each bowel movement 05/19/20 21 Active ibuprofen 200 MG tablet Take 200 mg by mouth every 6 (six) hours if needed. Active Multiple Vitamin (Daily-Victor Manuel Multivitamin) tabletIndications: Routine health maintenance Take 1 tablet by mouth in the morning. 90 tablet 1 11/29/19 23 Active triamcinolone (Kenalog) 0.1 % creamIndications:P soriasiform dermatitis Apply topically 2 times daily. 80 g 1 11/03/20 23 Active tacrolimus (Protopic) 0.1 % ointmentIndication s:Vitiligo Apply topically every 12 (twelve) hours. 60 g 1 11/03/20 23 Active multivitamin-child shirley's (Cerovite, Jr) 18 MG chewable tabletIndications: Encounter for general adult medical examination without abnormal findings CHEW AND SWALLOW 1 TABLET BY MOUTH EVERY MORNING 90 tablet 3 12/04/19 24 Active senna (Senokot) 8.6 MG tablet TAKE 2 TABLETS BY MOUTH ONCE DAILY FOR CONSTIPATION 180 tablet 1 01/10/20 24 Active Vitamin D High Potency 25 MCG (1000 UT) capsule TAKE 1 CAPSULE BY MOUTH EVERY MORNING 90 capsule 1 02/15/20 24 Active pantoprazole (ProtoNix) 20 MG EC tabletIndications: Gastroesophageal reflux disease, unspecified whether esophagitis present TAKE 1 TABLET BY MOUTH EVERY MORNING BEFORE BREAKFAST. DO NOT BREAK, CRUSH, DISSOLVE OR CHEW 90 tablet 3 05/08/20 24 Active cetirizine (ZyrTEC) 10 MG tabletIndications: Seasonal allergies Take 1 tablet (10 mg) by mouth if needed each day for allergies. 90 tablet 3 05/08/20 24 Active rosuvastatin (Crestor) 40 MG tabletIndications: Mixed hyperlipidemia Take 1 tablet (40 mg) by mouth at bedtime. 90 tablet 3 08/07/20 24 Active estradiol (Estrace) 0.1 MG/GM vaginal cream INSERT 1 GRAM VAGINALLY TWICE A WEEK 42.5 g 3 09/30/20 24 Active Multiple Vitamin (multivitamin) tablet Take 1 tablet by mouth Once per day. 90 tablet 3 01/15/20 25 Active magnesium oxide (Mag-Ox) 400 MG tabletIndications: Sleep disturbance TAKE 1 TABLET BY MOUTH AT BEDTIME 90 tablet 1 02/06/20 25 Active levothyroxine (Synthroid) 50 MCG tablet Take 1 tablet (50 mcg) by mouth before breakfast. 90 tablet 1 02/28/20 25 026 Active Active Problems Problem Noted Date Diagnosed [...] Assessment & Plan (03/03/2024 8:51 AM EDT): February 2024 - confirmation of elevated TSH with decreased free T4, pt with mild symptoms c/w hypothyroid Reviewed diagnosis with pt today, answered all questions Plan: start levothyroxine 50mcg daily, reviewed taking in the morning on an empty stomach, 30-60 minutes before breakfast and other meds Recheck TSH in 6 weeks Healthcare maintenance 07/11/2023 Overview (09/20/2024): Routine Health Maintenance Optometry: [facility] Eye Care eval Dec 2023. Next Dec 2024 Dental: established with dental home BMD: starting at 64 y/o Last PE: 05/08/24 Routine Cancer Screening Breast CA: Mammogram BIRADS 2 in Jun 2024 Cervical CA: Pap NIL/HPV neg 01/2022 Colonoscopy: 10/29/[address] Dipti Maravilla at [facility]. 2mm polyp in cecum. Recommend repeat colonoscopy in 5 years. Intermittent chest pain 07/11/2023 Assessment & Plan (11/09/2023 3:55 PM EST): ?? Personal history of HLD. Pertinent family history of CA - mother and sister (@62 y/o) ?? Denies palpitations, SOB, GUNDERSON, blurry vision, N/V/D ?? Evaluated by [facility] Cardiology May 2023, thought to be low probability chest pain syndrome, but high risk for CAD. Stress test, ETT and EKG reassuring Jun - Aug 2023. ?? ED precautions Assessment & Plan (07/16/2023 11:46 AM EDT): ?? Personal history of HLD. Pertinent family history of CA - mother and sister (@62 y/o) ?? Denies palpitations, SOB, GUNDERSON, blurry vision, N/V/D ?? Evaluated by [facility] Cardiology May 2023, thought to be low [...] enlarged sella with flattened pituitary. -Following with [facility] Neuro - Dr. Rajan -Last consult appt in Jun 2023 with plan to order brain MRI -Tapered off nortriptyline and doing well -Continues Excedrin PRN Assessment & Plan (11/09/2023 3:52 PM EST): -Head CT 10/07/22 read as enlarged sella with flattened pituitary. -Following with [facility] Neuro - Dr. Rajan -Last consult appt in Jun 2023 with plan to order brain MRI -Continues on nortriptyline 25mg nightly through Neuro -Continues Excedrin PRN Assessment & Plan (07/16/2023 11:44 AM EDT): -Head CT 10/07/22 read as enlarged sella with flattened pituitary. -Following with [facility] Neuro - Dr. Rajan -Last consult appt [...] with flattened pituitary. Pt was referred to [facility] Neuro but did not hear back regarding [...] noted in visit 09/10/2018 will fu with [employer] ATTENDANT in 6-8 weeks. If she does not tolerate could consider mycolog vs. Calcitriol ointment. 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 Tabares in hematology at [facility] until [address] Kaylee Kelley/Onc. 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 Plan to follow up 1 year. Assessment & Plan (11/09/2023 3:53 PM EST): ?? History of chronic leukopenia (at least since 2006) ?? Previously followed by Dr. Tabares in hematology at [facility] until 2019 ?? Currently following with Dr. Kaylee Kelley/Onc. 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 Plan to follow up 1 year. Assessment & Plan (03/26/2023 7:47 PM EDT): ?? History of chronic leukopenia (at least since 2006) ?? Previously followed by Dr. Tabares in hematology at [facility] until 2019 ?? Currently following with Dr. 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 Plan to follow up [id number] Benign paroxysmal positional vertigo 11/04/2010 Major depressive disorder, single episode 2009 Vitiligo 11/04/2010 Assessment & Plan (03/26/2023 7:42 PM EDT): ?? Followed by [facility] Derm, continue with Protopic 0.1% ointment BID [...] Encounters Date Type Department Care Team Description 04/16/2025 10:00 AM EDT Office Visit [facility] MEDICINE [address] [place], [place] [phone] Fabiola Bruce FNP Healthcare maintenance (Primary Dx); Acquired hypothyroidism; Encounter for immunization; Myalgia 04/16/2025 Travel 04/15/2025 Telephone [facility] & PEDS [address] [place], [place] [phone] Fabiola Bruce FNP Chart Prep 02/27/2025 Telephone [facility]EDS [address], [place] [phone] Fabiola Bruce FNP Results; Medication Question 02/11/2025 Orders Only [facility] [address] [place] [address] Fabiola Bruce FNP 02/02/2025 Refill [facility] [address] [place] [phone] Fabiola Bruce FNP Acquired hypothyroidism; Sleep disturbance from Last 3 Months Immunizations Immunization Administration Dates Next Due Hep B, adult 11/25/2024, 4,05/20/2024,2012 Influenza injectable quadriv alent IIV4 with preservative 10/08/2018,08/15/2016 Influenza injectable quadriv alent preservative free 09/23/2020,10/10/2014 Influenza, IIV3, injectable 08/18/2011, 0 Influenza, Split (incl. mylene fied surface antigen) 08/22/2013 Pfizer Covid-19 Vaccine 12+ 12/09/2021 Pneumococcal Conjugate PCV 20 04/16/2025 Tdap 05/08/2024,08/22/2013 Family History Medical History Relation [...] Mass Index 35.88 04/16/2025 10:23 AM EDT Plan of Treatment Upcoming Encounters Date Type Department Care Team (Late st Contact Info) Description 07/21/2025 9:00 AM EDT Office Visit [facility] OPTOMETRY [address] [place] [address] Cas, Radha, OD [address] [place] [address] Health Maintenance Due Date Last Done Comments CT Colonography 1974 FIT DNA/Cologuard 1974 FIT 1975 FOBT 1975 Sigmoidoscopy 1974 Alcohol/Substance Use Screening 1986 Family Planning (PISQ) 1989 Zoster Vaccines (1 of 2) 1993 COVID-19 Vaccine ( season) 2024 12/09/2021, 05/16/2021, 04/25/2021 Influenza Vaccine (#1) 2024 , 10/08/2018, 08/15/2016, Additional history exists Pap Smear 02/14/2025 02/14/2022, 030 11/2021, 01/25/2022 Mammogram 07/24/2025 07/24/2024, 06/28, 06/13/2022, Additional history exists Depression Screening 01/15/2026 01/15/2025, 01/15/20 25 SDOH Screening 01/15/2026 01/15/2025 Disability Screening 04/16/2026 04/16/2025 Tobacco Screening 04/16/2026 04/16/2025 Colonoscopy 10/29/2026 10/29/2021, 10/29/2021 Colorectal Cancer Screening 10/29/2026 Cervical Cancer Screening 02/14/2027 HPV/Cotest 02/14/2027 02/14/2022 DTaP/Tdap/Td Vaccines (3 - Td or Tdap) 05/08/2034 05/08/2024, 08/22/2013 RSV Patients and Patients Aged 60 years or older (1 - 1-dose 75+ series) 2049 HIV Screening Completed 02/21/2024, 02/26, 09/23/2020, Additional history exists Hepatitis C Screening Completed 02/21/2024, 023 Hepatitis B Vaccines Completed 11/25/2024, 06/24/2024, 05/20/2024, Additional history exists Pneumococcal Vaccine: 50+ Years Completed 04/16/2025 HIB Vaccines Aged Out No longer eligi [...] age to complete this topic Meningococcal B Vaccine Aged Out No l onger eligible based on patient's age to complete [...] Procedure Name Priority Date/Time Associated Diagnosis Comments T4, FREE Routine 02/11/2025 3:16 PM EDT HEPATITIS B SURFACE ANTIGEN, EIA Routine 02/11/2025 3:16 PM EDT Healthcare maintenance HEPATITIS B SURFACE ANTIBODY, QUALITATIVE Routine 02/11/2025 3:16 PM EDT Healthcare maintenance HEPATITIS B CORE AB TOTAL Routine 02/11/2025 3:16 PM EDT Healthcare maintenance TSH W/REFLEX TO FT4 Routine 02/11/2025 3 [...] Free T4 4.69(H) 0.32 - 4.0 uIU/mL [facility] Blood Venous blood specimen / Unknown 02/11/2025 3:16 PM EDT 02/11/2025 4:45 PM EDT Fabiola Bruce SITE TECHNICIAN LAB BLOOD ORDERABLES Final Res ult Performing Organization Address [facility] Co de Phone Number [facility] [address] [place] [phone] * Hepatitis B surface antigen, EIA (02/11/2025 3:16 PM EDT) Pathologist [facility] Hepatitis B Surface Ag Negative Negative [facility] Blood Venous blood specimen / Unknown 02/11/2025 3:16 PM EDT 02/11/2025 4:45 PM EDT Fabiola Bruce SITE TECHNICIAN LAB BLOOD ORDERABLES Final Res ult Performing Organization Address [facility] Co de Phone Number [facility] [address] [place] [phone] * Hepatitis B Core Antibody, Total (02/11/2025 3:16 PM EDT) Pathologist [facility] Hepatitis B Core Antibody Nonreactive Nonreactive [facility] Blood Venous blood specimen / Unknown 02/11/2025 3:16 PM EDT 02/11/2025 4:45 PM EDT Fabiola Bruce [facility] LAB BLOOD ORDERABLES Final Res ult Performing Organization Address [facility] de Phone Number [facility] [address] [place] [phone] * Hepatitis B Surface Antibody, Qualitative (02/11/2025 3:16 PM EDT) ~Hepatitis B Surface Antibody REACTIVE Nonreactive [facility] Comment:REACTIVE: > 11.99 mI U/mL Blood Venous blood specimen / Unknown 02/11/2025 3:16 PM EDT 02/11/2025 4:45 PM EDT Fabiola Bruce SITE TECHNICIAN LAB BLOOD ORDERABLES Final Res ult Performing Organization Address [facility] de Phone Number [facility] [address] [place] [address] [phone] * T4, Free (02/11/2025 3:16 PM EDT) Free T4 (Free Thyroxine) 0.83 0.71 - 1.85 ng/dL [facility] 02/11/2025 3:16 PM EDT 02/11/2025 4:45 PM EDT us Fabiola Bruce SITE TECHNICIAN LAB BLOOD ORDERABLES Final Res ult Performing Organization Address [facility] de Phone Number [facility] [address] [place] [phone] * BI Mammogram Screening Tomosynthesis Bilateral (07/24/2024 10:30 AM EDT) Anatomical Region Laterality Modality Breast Bilateral Mammography 07/24/2024 10:3 0 AM EDT Narrative 08/16/2024 4:43 PM EDT ? [facility] [place] ? [address] ?[place] [address] ? Mammography Report ? Signed ? Patient: Ayanna,Jeane ?MR#: [id number] ?? [id number] ? : 1975 ?Acct:[id number] ? Age/Sex: 48 / F ?ADM Date: 07/24/24 ? Loc: HO.MAMMO ? Attending Dr: Fabiola Bruce SITE TECHNICIAN ? Ordering Physician: Fabiola Bruce SITE TECHNICIAN ?Results: 2Benig ?? n Findings ? Date of Service: 07/24/24 ?Follow Up: 1 Year From Orig ?? inal Mammogram ? Procedure(s): MM tomosynthesis screening BI ?? Accession Number(s): [id number] ? cc: Fabiola Bruce SITE TECHNICIAN ? EXAMINATION: ?? MM SCREENING DIGITAL BREAST [...] ? Signed By: ?<Electronically signed by Norma Sheehan, DO in OV> ? 08/16/24 1640 ? DD/ 1030 ? TD/TT: 07/24/24 1051 ? Strategic Development Manager: ? Procedure Note Donotuseinterpreter, Image - 08/16/2024 [facility] [address] [place], [place] [address] Mammography Report Signed Patient: Silvino JeanR#: [id number] : 1975Acct:[id number] Age/Sex: 48 / FADM Date: 07/24/24 Loc: HO.MAMMO Attending Dr: Fabiola Bruce SITE TECHNICIAN Ordering Physician: Fabiola Bruce FNPResults: 2Benig n Findings Date of Service: 07/24/24Follow Up: 1 Year From Orig inal Mammogram Procedure(s): MM tomosynthesis screening BI Accession Number(s): [id number] cc: Fabiola Bruce SITE TECHNICIAN EXAMINATION: MM SCREENING DIGITAL BREAST TOMOSYNTHESIS, BILATERAL [...] 08/16/24 1640 DD/ 1030 TD/TT: 07/24/24 1051 Strategic Development Manager: Fabiola ARRIAGA IMG BI PROCEDURES Edited Resul t - Final * Hepatitis C Viral RNA, Quantitative, Real-Time PCR (02/21/2024 12:25 PM EDT) Pathologist [facility] Hepatitis C Viral Load <15 NOT DETECTED NOT DETECTED IU/mL [facility] HCV Log PCR <1.18 NOT DETECTED NOT DETECTED Log IU/mL [facility] Comment:This test was perfor med using Real-Time Polymerase ChainReaction.Reportable Range: 15 IU/mL to 100,000,000 IU/mL(1.18 Log IU/mL to 8.00 Log IU/mL).The analytical performance characteristics of thisassay have been determined by [employer].The modifications have not been cleared or approved bythe FDA. This assay has been validated pursuant to theCLIA regulations and is used for clinical purposes.For more information on this test, go to:http://education.Constant Therapy/faq/HOR40g6(This link is being provided for informational/educational purposes only.)THIS TEST WAS PERFORMED AT:[id number] [place] [id number] DELGADO MD Blood 02/21/2024 12:2 5 PM EDT 02/21/2024 1:24 PM EDT Fabiola TRUONGP LAB BLOOD ORDERABLES Final Res ult [facility] [address] [place] [phone] * HIV-1/2 Antigen and Antibodies, Fourth Generation, with Reflexes (02/21/2024 12:25 PM EDT) Pathologist [facility] HIV AB/AG Nonreactive Nonreactive [facility] Comment:HIV-1 p24 Ag and/or HIV-1/HIV-2 Ab not detected.A test result that is nonreactive does not exclude thepossibility of exposure to or infection with HIV-1 and/orHIV-2. Nonreactive results in this assay for individualswith prior exposure to HIV-1 and/or HIV-2 may be due toantigen and antibody levels that are below the limit ofdetection of this assay.The [employer] HIV Ag/Ab Combo assay result andsupplemental assay results should be interpreted inconjunction with the patient's clinical presentation,history and other laboratory results. If the results areinconsistent with clinical evidence, additional testing issuggested to confirm the result. Blood Venous blood specimen / Unknown 02/21/2024 12:25 PM EDT 02/21/2024 1:24 PM EDT us Fabiola Bruce [facility] LAB BLOOD ORDERABLES Final Res ult [facility] [address] [place] [phone] * THINPREP TIS PAP AND HPV mRNA E6/E7, CT/NG, TRICH (02/14/2022 2:43 PM EDT) Chlamydia trachomatis RNA, TMA, Urogenital NOT DETECTED NOT DETECTED [facility] Clinical Information: None given [facility] COMMENT SEE COMMENT [facility] Comment: The analytical performance characteristics of this assay, when used to test SurePath(TM) specimens have been determined by [facility]. The modifications have not been cleared or approved by the FDA. This assay has been validated pursuant to the CLIA regulations and is used for clinical purposes. ?? For additional information, please refer to https://education.[employer]/faq/IIB563 (This link is being provided for information/ [...] has been evaluated with computer assisted technology. [facility] Psychometrist: SEE COMMENT [facility] Comment: RXB, CT(ASCP) CT screening location: [address] ??[phone] HPV nRNA E6/E7 Not Detected Not Detected [facility] Comment: Methodology: Lockstitch Back Maker-Mediated Amplification This assay detects E6/E7 viral messenger RNA (mRNA) from 14 high-risk HPV types (16,18,31,33,35,39,45,51,52,56,58,59,66,68). ? The analytical performance characteristics of this assay have been determined by [facility]. The modifications have not been cleared or approved by the FDA. This assay has been validated pursuant to the CLIA regulations and is used for clinical purposes. ?? For additional information, please refer to http://T[employer]ko[employer].Constant Therapy/faq/NOH450t6 (This link if provided for information/ educational purposes only.) Infection Shift in vaginal luis carlos suggestive of bacterial vaginosis. [facility] Interpretation/Re sult: Negative for intraepithelial lesion or malignancy. [facility] LMP: NONE [facility]IV[facility] Neisseria gonorrhoeae RNA, TMA, Urogenital NOT DETECTED NOT DETECTED [facility] Prev. BX: NONE [facility] Prev. PAP: NONE [facility] SOURCE: Cervix [facility] Statement Of Adequacy: SEE COMMENT [facility] Comment: Satisfactory for evaluation. Endocervical/transformation zone component present. Partially obscuring inflammation Age and/or menstrual status not provided Trichomonas vaginalis, QL, TMA, PAP Vial NOT DETECTED NOT DETECTED [facility] Comment: The analytical performance characteristics of this assay have been determined by [facility]. The modifications have not been cleared or approved by the FDA. This assay has been validated pursuant to the CLIA regulations and is used for clinical purposes. ?? For additional information, please refer to http://[employer]/ faq/Trichomonastma (This link is being provided for information/ educational purposes only.) ?? 02/14/2022 2:43 PM EDT Daniela Castellon NP LAB PATHOLOGY ORDERABLES Final Result [facility] [address] * (ABNORMAL) Colonoscopy (10/29/2021) Colonoscopy Abnormal(A ) Normal Result [facility] HEALTH MAINTENANCE Final Result from Last 3 Months or Most Recently Relevant to Health Maintenance Insurance [facility] [place] [phone] Care Teams Wedding Coordinator Relationship Specialty Start Date End Date Fabiola Bruce FNP [address] [place] [address] PCP - General Family Medicine 07/22/22
--- OUTSIDE RECORDS SUMMARY | 2025-04-16 12:34 | XMS_ITS | Referral Summary ---
Author Organization [facility] Address [address] [place] [address] Care Team Providers Care Community Integration Specialist Name Role Phone Fabiola Bruce Primary Care Provider [phone] Allergies Active Allergy Reactions Criticality Noted Date [...] AM EDT): The patient is a 47-year-old Sudanese-speaking female who comes in with a presenting [...] was being followed by neurology at the [place] for vertigo from 9521-1262 and, at one point she also mentioned [...] and I rather suspect that this will return checker to be migraine headaches. I considered the [...] noted in visit 09/10/2018 will fu with HEAVY EQUIPMENT OPERATING ENGINEER in 6-8 weeks. 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 Procedure Name Priority Date/Time Associated Diagnosis Comments COLONOSCOPY 10/29/2021 PAP Routine 09/10/2018 11:54 AM EDT Screening for cervical cancer from Last 3 Months or Most Recently Relevant to Health Maintenance Results * Due to [place] [employer] law, this organization might not be sharing [...] and oxygen saturations were monitored continuously. The [id number] OLYMPUS [id number] was introduced through the anus and advancedto [...] Dipti Maravilla MD PROVATION PROCEDURES Final Result * Pap (09/10/2018 11:54 AM EDT) Specimen Adequacy Satisfactory for evaluation [facility] MANUAL 09/17/2018 10:32 AM EDT [facility] ANATOMIC PATHOLOGY - [facility] Pathologist Cytology Interpretation Negative for intraepithelial lesion or malignancy. [facility] MANUAL 09/17/2018 10:32 AM EDT [facility] ANATOMIC PATHOLOGY - [facility] at 1032 EDT Comment:This is the result o f a morphological screening test with an inherent possibility of a false negative interpretation. Foam Molder Statement This Pap test was examined by the [facility], [employer], [place], [place]. This Pap test was examined in accordance with the [facility] Cytopathology Laboratory written policy, which incorporates all CLIA mandates. Screening guidelines can be found in Am J Clin Pathol 2012;137:516-542. We endorse the practice guidelines developed by ASCCP and published in the Journal Lower Genital Tract Disease 17(5):S1-S27 (2013). [facility] MANUAL 09/17/2018 10:32 AM EDT [facility] ANATOMIC PATHOLOGY - [facility] Clinical History routine [facility] MANUAL 09/17/2018 10:32 AM EDT [facility] ANATOMIC PATHOLOGY - [facility] HPV High Risk DNA Subtypes NEGATIVE [facility] MANUAL 09/17/2018 10:32 AM EDT [facility] ANATOMIC PATHOLOGY - [facility] Test Description Specimens were tested for high risk HPV using the FDA approved Digene Hybrid Capture II kit, in the Diagnostic Molecular Oncology Lab at [facility]. This test can detect HPV high risk types 16, 18, 31, 33, 35, 39, 45, 51, 52, 56, 58, 59 and 68. High-risk subtypes of HPV are found in 96% of patients with high grade squamous intraepithelial lesions and cervical squamous cell carcinoma. Additional studies may be indicated in spite of a negative HPV test, e.g. in patients with a friable cervix or multiple previous abnormal pap tests. HPV testing is not recommended for managing patients with atypical glandular cells. Not all high-risk HPV infections are associated with a histologic or cytologic abnormality. We endorse the recommendations of the [place] Society for Colposcopy and Cervical Pathology for management of pap test results, available at www.asccp.org. ASCCP guidelines also recommend HPV 16/18 genotyping in patients over the age of 30 who have had positive high risk HPV testing, but have a negative morphologic Pap test: (http://www.asccp .org/consensus.sh tml). [facility] MANUAL 09/17/2018 10:32 AM EDT [facility] ANATOMIC PATHOLOGY - [facility] ASR Disclaimer The performance characteristics of this test have been validated by the Laboratory of Diagnostic Molecular Oncology. They have not been cleared or approved by the U.S. Food and Drug Administration (FDA). The FDA has determined that such clearance or approval is not necessary. The laboratory is certified under the Clinical Laboratory Improvement Amendments of 1988 (CLIA-88) as qualified to perform high complexity clinical laboratory testing. [facility] MANUAL 09/17/2018 10:32 AM EDT [facility] ANATOMIC PATHOLOGY - [facility] THREE Resulting Agency Case was signed out at [facility], Department of Pathology, [employer] 3 CLIA [id number] [facility] MANUAL 09/17/2018 10:32 AM EDT [facility] ANATOMIC PATHOLOGY - [facility] THREE Report Header Gynecologic Cytology Report ? Case: [id number] ? Authorizing Provider: ??Oriana Ying ?Collected: ? 09/10/2018 1154 ? Grace ? Ordering Location: ? [facility] ? Received: ?09/10/2018 0900 ? [facility] ? Obstetrics and Gynecology ? First Screen: ?Alyssa Lewis ? Specimen: ?Screening ThinPrep Pap, Cervix/Endocervix ? 09/17/2018 10:32 AM EDT [facility] ANATOMIC PATHOLOGY - [facility] Biopsy specimen (specimen) Cervix uteri structure / Unknown Non-Blood Collection / Unknown 09/10/2018 11:54 AM EDT 09/10/2018 9:00 AM EDT us Oriana Edwards LAB PATHOLOGY/CYTOLO GY ORDERABLES Final Result [facility] ANATOMIC PATHOLOGY - [facility] THREE [address] [place] [id number], from Last 3 Months or Most Recently Relevant to Health Maintenance Insurance [facility]/FREE C[facility] Care Teams Community Integration Specialist Relationship Specialty Start Date End Date Fabiola Bruce [address] [place] [address] PCP - General Family Medicine 04/10/23
--- OUTSIDE RECORDS SUMMARY | 2025-04-16 12:34 | XMS_ITS | Encounter Summary ---
Author Organization [facility] Address [address] [place] [address] Care Team Providers Care Line Dancer Name Role Phone Fabiola Bruce CORINA Primary Care Provider [phone] Encounter Details Date Type Department Care Team (Latest Contact Info) Description 04/16/2025 Travel Social History Tobacco Use Types Packs/Day [...] Description 07/21/2025 9:00 AM EDT Office Visit [facility] OPTOMETRY [address] [place] [address] Radha Cardozo, OD [address] [place] [address] documented as of this encounter Visit Diagnoses Not on filedocumented in this encounter Additional Health Concerns Assessment Noted Time PHQ-9 Depression Total Score: 1 01/15/20 25 10:09 AM EST documented as of this encounter Care Teams Line Dancer Relationship Specialty Start Date End Date Fabiola Bruce FNP [address] [place] [address] PCP - General Family Medicine 07/22/22 documented as of this encounter
--- OUTSIDE RECORDS SUMMARY | 2025-04-16 12:34 | XMS_ITS | Clinical Summary ---
Author Organization [facility] Address [address] [place] [address] Care Team Providers Care Web Content & Social Media Manager Name Role Phone Unavailable Primary Care Provider [...] Vaccine ( - 2023-2 5 season) 2024 Pneumococcal Vaccine: 50+ Ye ars (1 of 1 - PCV) 2024 Zoster Vaccines (1 of 2) 2024 Influenza Vaccine (Season Ended) 2025 HIB Vaccines Aged Out No longer eligi [...]
--- OUTSIDE RECORDS SUMMARY | 2025-04-16 12:34 | XMS_ITS | Encounter Summary ---
Author Organization [facility] Address [address] [facility] [address] [place] [address] Care Team Providers Care Senior Web Analyst Name Role Phone Fabiola Bruce Primary Care Provider [phone] Encounter Details Date Type Department Care Team (Late st Contact Info) Description 11/24/2022 Telephone [facility] MEDICINE [address] [place] [address] Fabiola Bruce FNP [address] [place] [address] Social History Tobacco Use Types Packs/Day Years [...] Department Care Team (Late Contact Info) Description 07/21/2025 9:00 AM EDT Office Visit [facility] OPTOMETRY [address] [place] [address] Cas, Radha, OD [address] [place] [address] documented as of this encounter Visit Diagnoses Not on filedocumented in this encounter Care Teams Senior Web Analyst Relationship Specialty Start Date End Date Fabiola Bruce FNP [address] [place] [address] PCP - General Family Medicine 07/22/22 documented as of this encounter
--- OUTSIDE RECORDS SUMMARY | 2025-04-16 12:34 | XMS_ITS | Clinical Summary ---
Author Organization [facility] Address [address] [place] [address] Care Team Providers Care Prop And Effects Designer Name Role Phone Fabiola Bruce Primary Care Provider [phone] Allergies Active Allergy Reactions Criticality Noted Date [...] AM EDT): The patient is a 47-year-old Paraguayan-speaking female who comes in with a presenting [...] was being followed by neurology at the [place] for vertigo from 4836-3176 and, at one point she also mentioned [...] and I rather suspect that this will mill turner to be migraine headaches. I considered [...] noted in visit 09/10/2018 will fu with READERS' ADVISORY SERVICE LIBRARIAN in 6-8 weeks. 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 Not on file [...] Health Maintenance Due Date Last Done Comments HPV and Pap Smear 1975 Hepatitis B Vaccines (2 of 3 - 19+ 3-dose series) 11/19/2013 10/22/2013 Cervical Cancer Screening 09/10/2021 Pap Smear 09/10/2021 09/10/2018 Mammogram 05/25/2022 05/25/2020, 02/26, 03/14/2018 DTaP,Tdap,and Td Vaccines (2 - Td or Tdap) 08/22/2023 08/22/2013 COVID-19 Vaccine (4 - 2023-2 5 season) 2024 12/09/2021, 05/16/2021, 04/25/2021 Pneumococcal Vaccine: 50+ Ye ars (1 of 1 - PCV) 2024 Zoster Vaccines (1 of 2) 2024 Alcohol/Substance Use Screening 11/27/2024 Depression Screening and Follow-Up 11/27/2024 Social Drivers of Health Sheila ual Screening 11/27/2024 Influenza Vaccine (Season Ended) 2025 09/23/2020, 10/08/2018, 08/15/2016, Additional history exists Colonoscopy 10/29/2026 10/29/2021, 12/01/2021, 10/29/2021, Additional history exists RSV Vaccine (60+ years old a nd patients) (1 - 1-dose 75+ series) 2049 Hepatitis C Screening Completed 03/20/2023 HIV Screening Completed 02/21/2024, 01/26, 03/20/2023 Procedures * Due to [place] law, this organization might not be sharing negative HIV tests. Procedure Name Priority Date/Time Associated Diagnosis Comments COLONOSCOPY 10/29/2021 PAP Routine 09/10/2018 11:54 AM EDT Screening for cervical cancer from Last 3 Months or Most Recently Relevant to Health Maintenance Results * Due to [place] law, this organization might not be sharing [...] and oxygen saturations were monitored continuously. The [id number] OLYMPUS [id number] was introduced through the anus and advancedto [...] 0 Note Initiated On: 10/29/2021 8:19 AM us Dipti Maravilla MD PROVATION PROCEDURES Final Result * Pap (09/10/2018 11:54 AM EDT) Specimen Adequacy Satisfactory for evaluation [facility] MANUAL 09/17/2018 10:32 AM EDT [facility] ANATOMIC PATHOLOGY - [facility] THREE Pathologist Cytology Interpretation Negative for intraepithelial lesion or malignancy. [facility] MANUAL 09/17/2018 10:32 AM EDT [facility] ANATOMIC PATHOLOGY - [facility] THREE at 1032 EDT Comment:This is the result o f a morphological screening test with an inherent possibility of a false negative interpretation. Eligibility Services Representative Statement This Pap test was examined by the [facility], [employer], [place], [place]. This Pap test was examined in accordance with the [facility] Cytopathology Laboratory written policy, which incorporates all CLIA mandates. Screening guidelines can be found in Am J Clin Pathol 2012;137:516-542. We endorse the practice guidelines developed by ASCCP and published in the Journal Lower Genital Tract Disease 17(5):S1-S27 (2013). [facility] MANUAL 09/17/2018 10:32 AM [facility] ANATOMIC PATHOLOGY - [facility] THREE Clinical History routine [facility] MANUAL 09/17/2018 10:32 AM T [facility] ANATOMIC PATHOLOGY - [facility] THREE HPV High Risk DNA Subtypes NEGATIVE [facility] MANUAL 09/17/2018 10:32 AM [facility] ANATOMIC PATHOLOGY - [facility] THREE Test Description Specimens were tested for high risk HPV using the FDA approved Digene Hybrid Capture II kit, in the Diagnostic Molecular Oncology Lab at [facility]. This test can detect HPV high risk [...] abnormality. We endorse the recommendations of the [place] Society for Colposcopy and Cervical Pathology for management of pap test results, available at www.asccp.org. ASCCP guidelines also recommend HPV 16/18 genotyping in patients over the age of 30 who have had positive high risk HPV testing, but have a negative morphologic Pap test: (http://www.asccp .org/consensus.sh tml). [facility] MANUAL 09/17/2018 10:32 AM [facility] ANATOMIC PATHOLOGY - [place] THREE ASR Disclaimer The performance characteristics of [...] to perform high complexity clinical laboratory testing. [facility] MANUAL 09/17/2018 10:32 AM [facility] ANATOMIC PATHOLOGY - [place] THREE Resulting Agency Case was signed out at [facility], Department of Pathology, Bi[employer] 3 CLIA [id number] [facility] MANUAL 09/17/2018 10:32 AM [facility] ANATOMIC PATHOLOGY - [place] THREE Report Header Gynecologic Cytology Report ? Case: [id number] ? Authorizing Provider: ??Oriana Stepan ?Collected: ? 09/10/2018 1154 ? Grace ? Ordering Location: ? [facility] ? Received: ?09/10/2018 0900 ? [facility] ? Obstetrics and Gynecology ? First Screen: ?Alyssa Lewis ? Specimen: ?Screening ThinPrep Pap, Cervix/Endocervix ? 09/17/2018 10:32 AM EDT [facility] ANATOMIC PATHOLOGY - [facility] THREE Biopsy specimen (specimen) Cervix uteri structure / Unknown Non-Blood Collection / Unknown 09/10/2018 11:54 AM EDT 09/10/2018 9:00 AM EDT us Oriana Edwards LAB PATHOLOGY/CYTOLO GY ORDERABLES Final Result [facility] ANATOMIC PATHOLOGY - [facility] THREE [address] [place] [id number], from Last 3 Months or Most Recently Relevant to Health Maintenance Insurance [facility] HSNO/FREE CARE Care Teams Prop And Effects Designer Relationship Specialty Start Date End Date Fabiola Bruce [address] [place] [address] PCP - General Family Medicine 04/10/23
--- OUTSIDE RECORDS SUMMARY | 2025-04-16 12:34 | XMS_ITS | Encounter Summary ---
Author Organization [facility] Address [address] [facility] [address] [place] [address] Care Team Providers Care Marina Manager Name Role Phone Fabiola Bruce Primary Care Provider [phone] Encounter Details Date Type Department Care Team (Latest Contact Info) Description 05/13/2019 Abstract [facility] CONVERSIONS Dental, Provider, DDS Social History Tobacco [...] Description 07/21/2025 9:00 AM EDT Office Visit [facility] OPTOMETRY [address] [place] [address] Cas, Radha, OD [address] [place] [address] documented as of this encounter Visit Diagnoses Not on filedocumented in this encounter Care Teams Marina Manager Relationship Specialty Start Date End Date Fabiola Bruce FNP [address] [place] [address] PCP - General Family Medicine 07/22/22 documented as of this encounter
[2025-04-16 14:35] LABS: Anion Gap 12 (12-20); Blood Urea Nitrogen 11 mg/dL (9-16); Calcium 9.4 mg/dL (8.4-10.2); Carbon Dioxide 27 mmol/L (22-29); Chloride 106 mmol/L (96-108); Cholesterol 120 mg/dL (<200); Estimated Glomerular Filt Rate > 60; Glucose Random 93 mg/dL (60-115); HDL Cholesterol 46 mg/dL (>40); LDL Cholesterol Calculated 53 mg/dL (<100); Magnesium 2.3 mg/dL (1.6-2.6); Potassium 4.5 mmol/L (3.3-5.1); Sodium 140 mmol/L (135-145); Triglycerides 105 mg/dL (<150)
[2025-04-16 14:52] LABS: TSH reflex Free T4 2.64 uIU/mL (0.32-4.0)
== END 2025-04-16 11:18 | disposition home or self-care (01) ==
LOC: HO.HHCL 11:17
PROVIDERS: Visit Provider Registered Nurse
DX: Z00.00 Encounter for general adult medical examination without abnormal findings (principal); M79.10 Myalgia, unspecified site; E03.9 Hypothyroidism, unspecified
CPT/HCPCS: 36415; 80048; 80061; 82552; 83735; 84443

== ENCOUNTER 2025-05-20 15:16 | Outpatient (REF) | payer OTHER, SELFPAY ==
--- NOTE | ~2025-05-20 | US_ITS ---
EXAMINATION: US THYROID HISTORY: ACQUIRED HYPOTHYROIDISM, SIS W/THYROID NODULES, TECHNIQUE: Real-time grayscale ultrasound imaging was performed and images were reviewed. COMPARISON: There are no prior studies available for comparison. FINDINGS: SIZE: The right thyroid lobe measures 6.8 x 2.3 x 2.0 cm. The left thyroid lobe measures 5.1 x 1.9 x 1.5 cm. The isthmus measures 8 mm. FLOW: Flow to the gland is increased. ECHOGENICITY: The echotexture of the gland is heterogeneous. NODULES: Multiple nodules are seen in the right thyroid lobe. The two largest nodules are described below: Nodule #: 1 Location: Lower pole of the right thyroid lobe measuring 1.6 x 1.1 x 1.3 cm. Shape: Wider than tall (0 points) Margins: Smooth (0 points) Echotexture: Hypoechoic (2 points) Composition: Solid (2 points) Calcifications: None (0 points) Total points: 4 TIRADS: TR4: Moderately suspicious. Nodule #: 2 Location: Midportion of the right thyroid lobe measuring 1.4 x 1.4 x 1.1 cm. Shape: Taller than wide (3 points) Margins: Smooth (0 points) Echotexture: Isoechoic (1 point) Composition: Solid (2 points) Calcifications: None (0 points) Total points: 6 TIRADS: TR5: Highly suspicious. US/US thyroid IMPRESSION: Multiple right thyroid nodules. According to ACR TI-RADS guidelines below, ultrasound-guided fine-needle aspiration of the two dominant nodules described above is recommended. ACR TI-RADS Guidelines TR1 (0 points): Benign, No follow-up or biopsy required TR2 (2 points): Not Suspicious, No biopsy or follow up indicated TR3 (3 points): Mildly Suspicious, FNA if >= 2.5 cm, Follow if >= 1.5 cm TR4 (4-6 points): Moderately Suspicious, FNA if >= 1.5 cm, Follow if >= 1.0 cm TR5 (>=7 points): Highly Suspicious, FNA if >= 1.0 cm, Follow if >= 0.5 cm Electronically signed by: Joaquin Jolly MD 05/21/2025 07:19 AM EDT
--- OUTSIDE RECORDS SUMMARY | 2025-05-20 18:29 | XMS_ITS | Encounter Summary ---
Author Organization [facility] Address [address] [facility] [address] [place] [address] Care Team Providers Care Events Associate Name Role Phone Fabiola Bruce Primary Care Provider [phone] Encounter Details Date Type Department Care Team (Latest Contact Info) Description 05/13/2019 Abstract [facility] CONVERSIONS Dental, Provider, DDS Social [...] Description 07/21/2025 9:00 AM EDT Office Visit [facility] OPTOMETRY [address] [place] [address] CasRadha fitch, OD [address] [place] [address] 08/06/2025 9:15 AM EDT Office Visit [facility] MEDICINE [address] [place] [address] Fabiola Bruce FNP [address] [place] [address] 11/17/2025 1:00 PM EST Office Visit [facility] ADULT DENTAL [address] [place] [address] Heather Jane documented as of this encounter Visit Diagnoses Not on filedocumented in this encounter Care Teams Events Associate Relationship Specialty Start Date End Date Fabiola Bruce FNP [address] [place] [address] PCP - General Family Medicine 07/22/22 documented as of this encounter
== END 2025-05-20 15:17 | disposition home or self-care (01) ==
LOC: HO.US 15:16
PROVIDERS: PCP Registered Nurse; Visit Provider Registered Nurse
DX: E03.9 Hypothyroidism, unspecified (principal)
CPT/HCPCS: 76536

== ENCOUNTER → 2025-05-20 15:20 | Outpatient (BNV) | payer OTHER, SELFPAY | PROVIDERS: PCP Registered Nurse; Visit Provider Radiology Diagnostic Radiology | DX: E04.2 Nontoxic multinodular goiter (principal) | CPT/HCPCS: 76536 ==

== ENCOUNTER 2025-06-04 13:36 | Outpatient (AMB) | payer OTHER, SELFPAY ==
[2025-06-04 13:38] VITALS: BP 112/74; PULSE 68; O2SAT 96; BMI 37.8
--- NOTE | 2025-06-04 13:38 | MHC.OFFVIS ---
Vital Signs 06/04/25 13:38 Height 4 ft 11 in Weight 187 lb 6.287 oz BMI 37.8 BP 112/74 Blood Pressure Location Lt brachial Position Sitting Pulse 68 Pulse Source Pulse Oximeter Pulse Oximetry (%) 96 Oxygen Delivery Method Room Air Intake Visit Reasons: Multiple thyroid nodules Intake Note: Patient present today for Multiple thyroid nodules. Milk Processing Worker Required: Yes Milk Processing Worker Language: Medical Office Rep Services: Milk Processing Worker Present Milk Processing Worker Name: Flaquita [id number] Information Interpreted: non-clinical & clinical Accompanied by: Self / Same As Patient Allergies acetaminophen (From Tylenol) Allergy (Verified 06/04/25 13:42) Stomach Upset amoxicillin Allergy (Verified 06/04/25 13:42) Anaphylaxis Medication List - Last Reconciled 06/04/25 by Emily Hair MD ibuprofen 600 mg PO TID levothyroxine (Synthroid) 50 mcg PO DAILY multivitamin 1 tab PO DAILY omeprazole 20 mg PO BID rosuvastatin (Crestor) 40 mg PO DAILY HPI Comments Details: 49-year-old female coming in today for initial evaluation of nontoxic multinodular goiter. She has a history of hypothyroidism, currently on levothyroxine 50 mcg daily. has been on levothyroxine for a year, dose increased 25 to 50 sometime around February 2025. Most recent labs from March 2025 showed normal TSH. 05/20/2025: Ultrasound of the thyroid, I reviewed the images myself which showed a heterogenous gland. Right lower pole 1.6 cm solid hypoechoic nodule with possible extrathyroidal extension. Even done the report this is categorized as a TR 4 nodule, I would say this is a TR 5 nodule based on possible extrathyroidal extension. This meets criteria for FNA. Another right mid lobe 1.4 cm solid isoechoic nodule which is taller than wide TR 5 category also noted. This also meets criteria for FNA. Patient currently denies heat or cold intolerance, hair loss, palpitation, anxiety, mood changes, changes in appearance of eyes or vision changes, tremors, increased diaphoresis or dry skin. ? reports constipation. does reports tiredness, reports some weight gain. Patient denies any difficulty swallowing, pain on swallowing or voice changes or difficulty breathing. Patient denies any history of childhood neck radiation. Denies having ever used lithium, amiodarone or biotin supplements. Patient denies any family history of thyroid cancer Sister had thyroid nodules. mother: thyroid surgery for nodules, Physical exam General: sitting comfortably in no acute distress HEENT: normocephalic/atraumatic, Neck: supple, palpable 1 cm right-sided nodule Cardiac: normal heart sounds Pulm: normal breath sounds B/L, no added breath sounds Abd: not distended, no tenderness Extremities: no edema, no signs of myxedema Neuro: AAO x3, Speech: normal, no facial droop, moving all 4 extremities Laboratory Tests 02/11/25 04/16/25 15:16 11:20 TSH 4.69 H 2.64 Free T4 0.83 EXAMINATION: US THYROID 05/20/25 HISTORY: ACQUIRED HYPOTHYROIDISM, SIS W/THYROID NODULES, TECHNIQUE: Real-time grayscale ultrasound imaging was performed and images were reviewed. COMPARISON: There are no prior studies available for comparison. FINDINGS: SIZE: The right thyroid lobe measures 6.8 x 2.3 x 2.0 cm. The left thyroid lobe measures 5.1 x 1.9 x 1.5 cm. The isthmus measures 8 mm. FLOW: Flow to the gland is increased. ECHOGENICITY: The echotexture of the gland is heterogeneous. NODULES: Multiple nodules are seen in the right thyroid lobe. The two largest nodules are described below: Nodule #: 1 Location: Lower pole of the right thyroid lobe measuring 1.6 x 1.1 x 1.3 cm. Shape: Wider than tall (0 points) Margins: Smooth (0 points) Echotexture: Hypoechoic (2 points) Composition: Solid (2 points) Calcifications: None (0 points) Total points: 4 TIRADS: TR4: Moderately suspicious. Nodule #: 2 Location: Midportion of the right thyroid lobe measuring 1.4 x 1.4 x 1.1 cm. Shape: Taller than wide (3 points) Margins: Smooth (0 points) Echotexture: Isoechoic (1 point) Composition: Solid (2 points) Calcifications: None (0 points) Total points: 6 TIRADS: TR5: Highly suspicious. US/US thyroid IMPRESSION: Multiple right thyroid nodules. According to ACR TI-RADS guidelines below, ultrasound-guided fine-needle aspiration of the two dominant nodules described above is recommended. 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 Vitiligo Surgical History History of tubal ligation Family History Mother Hyperlipemia Social History Are you a primary patient care provider to a significant other at home: No Alcohol intake: never Physical Exam Vital Signs: Last Vital Signs Pulse 68 06/04/25 13:38 BP 112/74 06/04/25 13:38 Pulse Ox 96 06/04/25 13:38 Oxygen Delivery Method Room Air 06/04/25 13:38 BMI result Body Mass Index 37.8 Assessment & Plan Assessment & Plan (1) Multinodular goiter: Code(s): E04.2 - Nontoxic multinodular goiter Category: Medical Plan: 49-year-old female with no family history of thyroid cancer, with no personal history of head or neck radiation coming in today to establish care for nontoxic multinodular goiter. 05/20/2025: Ultrasound of the thyroid, I reviewed the images myself which showed a heterogenous gland. Right lower pole 1.6 cm solid hypoechoic nodule with possible extrathyroidal extension. Even done the report this is categorized as a TR 4 nodule, I would say this is a TR 5 nodule based on possible extrathyroidal extension. This meets criteria for FNA. Another right mid lobe 1.4 cm solid isoechoic nodule which is taller than wide TR 5 category also noted. This also meets criteria for FNA. I explained that it is common to have thyroid nodules. About 95% of the time these nodules are benign. However if the nodule is > 1 cm in size or suspicious on ultrasound then a fine need aspiration biopsy is recommended. We discussed that a FNAB involves 4-5 passes with a small gauge needle and material obtained is sent off for cytology.If the cytopathology is benign then the nodule will be followed annually with repeat ultrasounds. However if it is suspicious or malignant, we will need to discuss further management. Indeterminate cytology can be further investigated with repeat FNA, genetic testing or empiric lobectomy. Malignant cytology is managed with either lobectomy or total thyroidectomy. We discussed briefly that thyroid cancer is, in most patients, an indolent disease that does not affect mortality. She does not have any compressive symptoms. We will arrange for FNA of the right mid 1.4 cm and the right lower 1.6 cm thyroid nodules at next available opening and patient will follow up with me in clinic thereafter for results and further decision making. 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 Labs from March 2025 showed normal thyroid function. Plan: -continue levothyroxine 50 mcg daily Plan I spent 45 minutes in reviewing the record, seeing the patient and documenting in the medical record. 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
--- OUTSIDE RECORDS SUMMARY | 2025-06-04 14:26 | XMS_ITS | Encounter Summary ---
Author Organization [facility] [facility] Address [address] [place] [address] Care Team Providers Care Supervisory Aide Name Role Phone Fabiola Bruce Primary Care Provider [phone] Encounter Details Date Type Department Care Team (Latest Contact Info) Description 05/13/2019 Abstract [facility] CONVERSIONS Dental, Provider, DDS Social History [...] Description 07/21/2025 9:00 AM EDT Office Visit [facility] OPTOMETRY [address] [place] [address] CasRadha, OD [address] [place] [address] 08/06/2025 9:15 AM EDT Office Visit [facility] MEDICINE [address] [place] [address] Fabiola Bruce FNP [address] [place] [address] 11/17/2025 1:00 PM EST Office Visit [facility] ADULT DENTAL [address] [place] [address] Heather Jane documented as of this encounter Visit Diagnoses Not on filedocumented in this encounter Care Teams Supervisory Aide Relationship Specialty Start Date End Date Fabiola Bruce FNP [address] [place] [address] PCP - General Family Medicine 07/22/22 documented as of this encounter
--- OUTSIDE RECORDS SUMMARY | 2025-06-04 14:26 | XMS_ITS | Clinical Summary ---
Author Organization [facility] ity Address [address] [place] [address] Care Team Providers Care Superintendent Communications Name Role Phone Unavailable Primary Care Provider [...] Vaccines (1 of 2) 2024 Influenza Vaccine (#1) 2025 HIB Vaccines Aged Out No longer [...] 5 Years) and At-Risk Patients (6 to 49 Years) Aged Out No longer eligible b ased on patient's age to complete this topic RSV Immunization Patients Un celina 20 months Aged Out No longer eligible b ased on patient's age to complete this topic Varicella Vaccines Aged Out No longer eligible based on patient's age to complete this topic
--- OUTSIDE RECORDS SUMMARY | 2025-06-04 14:26 | XMS_ITS | Referral Summary ---
Author Organization [facility] Address [address] [place] [address] Care Team Providers Care Tractor Mechanic Helper Name Role Phone Fabiola Bruce Primary Care Provider [phone] Allergies Active Allergy Reactions Criticality Noted Date [...] AM EDT): The patient is a 47-year-old Singaporean-speaking female who comes in with a presenting [...] was being followed by neurology at the [facility] for vertigo from [phone] and, at one point she also mentioned [...] and I rather suspect that this will turning machine set up operator to be migraine headaches. 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 Not on file Not on file Not on file Last Filed Vital Signs Vital Sign Reading Time Taken Comments Blood Pressure 131/82 04/15/2024 9:58 AM EDT Pulse 67 04/15/2024 9:58 AM EDT Temperature 36.7 C (98 F) 07/10/2023 10:51 AM EDT Respiratory Rate 16 06/21/2023 1:47 PM EDT Oxygen Saturation 100% 04/15/2024 9:58 AM EDT Inhaled Oxygen Concentration - - Weight 81.6 kg (180 lb) 04/15/2024 9:58 AM EDT Height 152.4 cm (5') 04/15/2024 9:58 AM EDT Body Mass Index 35.15 04/15/2024 9:58 AM EDT Plan of Treatment Not on file Procedures * Due to [place] [employer] law, this organization might not be sharing negative HIV tests. Procedure Name Priority Date/Time Associated Diagnosis Comments COLONOSCOPY 10/29/2021 PAP Routine 09/10/2018 11:54 AM EDT Screening for cervical cancer from Last 3 Months or Most Recently Relevant to Health Maintenance Results * Due to [place] [employer] law, this organization might not be sharing [...] and oxygen saturations were monitored continuously. The [id number] OLYMPUS [id number] was introduced through the anus and advancedto [...] AM EDT) Specimen Adequacy Satisfactory for evaluation [facility] MANUAL 09/17/2018 10:32 AM EDT [facility] ANATOMIC PATHOLOGY - BIOTECH THREE Pathologist Cytology Interpretation Negative for intraepithelial lesion or malignancy. [facility] MANUAL 09/17/2018 10:32 AM EDT [facility] ANATOMIC PATHOLOGY - BIOTECH THREE at 1032 EDT Comment:This is the result o f a morphological screening test with an inherent possibility of a false negative interpretation. Ordnance Truck Installation Supervisor Statement This Pap test was examined by the [employer] [facility], [place], [place], [place]. This Pap test was examined in accordance with the [facility] Cytopathology Laboratory written policy, which incorporates all CLIA mandates. Screening guidelines can be found in Am J Clin Pathol 2012;137:516-542. We endorse the practice guidelines developed by ASCCP and published in the Journal Lower Genital Tract Disease 17(5):S1-S27 (2013). [facility] MANUAL 09/17/2018 10:32 AM EDT [facility] ANATOMIC PATHOLOGY - BIOTECH THREE Clinical History routine [facility] MANUAL 09/17/2018 10:32 AM EDT [facility] ANATOMIC PATHOLOGY - BIOTECH THREE HPV High Risk DNA Subtypes NEGATIVE [facility] MANUAL 09/17/2018 10:32 AM EDT [facility] ANATOMIC PATHOLOGY - BIOTECH THREE Test Description Specimens were tested for high risk HPV using the FDA approved Digene Hybrid Capture II kit, in the Diagnostic Molecular Oncology Lab at [facility]. This test can detect HPV high risk [...] abnormality. We endorse the recommendations of the [place] Society for Colposcopy and Cervical Pathology for management of pap test results, available at www.asccp.org. ASCCP guidelines also recommend HPV 16/18 genotyping in patients over the age of 30 who have had positive high risk HPV testing, but have a negative morphologic Pap test: (http://www.asccp .org/consensus.sh tml). [facility] MANUAL 09/17/2018 10:32 AM EDT [facility] ANATOMIC PATHOLOGY - Stitch.es THREE ASR Disclaimer The performance characteristics of [...] to perform high complexity clinical laboratory testing. [facility] MANUAL 09/17/2018 10:32 AM EDT [facility] ANATOMIC PATHOLOGY - BIOTECH THREE Resulting Agency Case was signed out at [facility], Department of Pathology, Biotech 3 CLIA [id number] [facility] MANUAL 09/17/2018 10:32 AM EDT [facility] ANATOMIC PATHOLOGY - BIOTECH THREE Report Header Gynecologic Cytology Report Case: [id number] Authorizing Provider: Oriana Ying Collected: 09/10/2018 [address] Ordering Location: [facility] Received: 09/10/2018 0900 [facility] Obstetrics and Gynecology First Screen: Alyssa Lewis Specimen: Screening ThinPrep Pap, Cervix/Endocervix 09/17/2018 10:32 AM EDT [facility] ANATOMIC PATHOLOGY - BIOTECH THREE Biopsy specimen (specimen) Cervix uteri structure / Unknown Non-Blood Collection / Unknown 09/10/2018 11:54 AM EDT 09/10/2018 9:00 AM EDT us Oriana Edwarsd LAB PATHOLOGY/CYTOLO GY ORDERABLES Final Result [facility] ANATOMIC PATHOLOGY - BIOTECH THREE [address] [place] [id number], from Last 3 Months or Most Recently Relevant to Health Maintenance Insurance [facility] HS/FREE CARE Care Teams Tractor Mechanic Helper Relationship Specialty Start Date End Date Fabioal Bruce [address] [place] [id number] PCP - General Family Medicine 04/10/23
== END 2025-06-04 14:29 | disposition home or self-care (01) ==
LOC: HO.ENCR 13:37
PROVIDERS: PCP Registered Nurse; Visit Provider Student in an Organized Health Care Education/Training Program
DX: E04.2 Nontoxic multinodular goiter (principal); E06.3 Autoimmune thyroiditis
CPT/HCPCS: 99204

== ENCOUNTER → 2025-06-04 13:36 | Outpatient (BNVA) | payer OTHER, SELFPAY | PROVIDERS: PCP Registered Nurse; Visit Provider Student in an Organized Health Care Education/Training Program | DX: E04.2 Nontoxic multinodular goiter (principal); E06.3 Autoimmune thyroiditis | CPT/HCPCS: 99202 ==

== ENCOUNTER 2025-06-11 10:54 | Outpatient (REF) | payer OTHER, SELFPAY ==
--- NOTE | 2025-06-11 11:37 | PCN2_ITS ---
Brief Operative Note Date of procedure: 06/11/25 Pre-op diagnosis: right mid 1.4 cm and right lower 1.6 cm thyroid nodule FNA b iopsy Post-op diagnosis: same Procedure: THYROID FINE NEEDLE ASPIRATION PROCEDURE NOTE ? PROCEDURE PERFORMED: Ultrasound-guided FNA of thyroid nodule ? OPERATORS:Dr. Emily Hair ? INDICATION: right mid 1.4 cm and right lower 1.6 cm thyroid nodules; FNA performed to assess for malignancy ? DESCRIPTION OF PROCEDURE: The indications for FNA (to assess for malignancy) were reviewed with the patient in detail. Potential complications (e.g., bleeding, infection, damage to local structures, absence of clear diagnosis after FNA) were reviewed. Alternatives to FNA including conservative observation or surgery were described. The patient understood and agreed to proceed. This was documented by the signing of the written informed consent form. A time-out was performed to confirm the patient's identity and the site of planned FNA. The nodules of interest were identified using ultrasound (14 MHz linear array probe). The sites of FNA was then draped in the usual fashion and carefully cleaned and prepared using alcohol swabs. The skin at the previously-identified sites of needle insertion were iced and sprayed with numbing spray. First for the right mid 1.4 cm thyroid nodule, Under ultrasound guidance, 5__ passes were performed using a 1.5-inch, 25-gauge needle, and sample was obtained via capillary action. The needle tip was clearly visualized to be within the nodule at the time of sampling for 4__ of _5_ passes. Then for the right lower 1.6 cm thyroid nodule, Under ultrasound guidance, 4__ passes were performed using a 1.5-inch, 25-gauge needle, and sample was obtained via capillary action. The needle tip was clearly visualized to be within the nodule at the time of sampling for 4__ of 4_ passes. The patient tolerated the procedure well. There were no immediate complications. A small adhesive bandage was applied, and the patient was advised to take acetaminophen (rather than NSAIDs) for any discomfort and to report any signs of inflammation/infection or marked swelling. IMPRESSION: Technically successful ultrasound-guided fine needle aspiration of right mid 1.4 cm and right lower 1.6 cm thyroid nodules. PLAN: The patient was advised that I will provide follow-up regarding the cytology result and any subsequent plans. Emily Hair MD Endocrinology Attending Condition: stable Disposition: same day
--- OUTSIDE RECORDS SUMMARY | 2025-06-11 11:44 | XMS_ITS | Referral Summary ---
Author Organization [facility] Address [address] [place] [address] Care Team Providers Care Stogy Maker Name Role Phone Fabiola Bruce Primary Care Provider [phone] Allergies Active Allergy Reactions Criticality Noted Date [...] AM EDT): The patient is a 47-year-old [place]-speaking female who comes in with a presenting [...] was being followed by neurology at the [place] for vertigo from [phone] and, at one point she also mentioned [...] and I rather suspect that this will porcelain turner to be migraine headaches. I considered [...] noted in visit 09/10/2018 will fu with TOBACCO PRIZER in 6-8 weeks. 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 Procedure Name Priority Date/Time Associated Diagnosis Comments COLONOSCOPY 10/29/2021 PAP Routine 09/10/2018 11:54 AM EDT Screening for cervical cancer from Last 3 Months or Most Recently Relevant to Health Maintenance Results * Due to [place] [employer] law, this organization might not be sharing [...] and oxygen saturations were monitored continuously. The CF-[id number] OLYMPUS [id number] was introduced through the anus and advancedto [...] EDT) Specimen Adequacy Satisfactory for evaluation [facility] MANUAL 09/17/2018 10:32 AM EDT [facility] ANATOMIC PATHOLOGY - BIOTECH THREE Pathologist Cytology Interpretation Negative for intraepithelial lesion or malignancy. [facility] MANUAL 09/17/2018 10:32 AM EDT [facility] ANATOMIC PATHOLOGY - BIOTECH THREE at 1032 EDT Comment:This is the result o f a morphological screening test with an inherent possibility of a false negative interpretation. Diver Tender Statement This Pap test was examined by the [facility], [employer], [place], [place]. This Pap test was examined in accordance with the [facility] Cytopathology Laboratory written policy, which incorporates all CLIA mandates. Screening guidelines can be found in Am J Clin Pathol 2012;137:516-542. We endorse the practice guidelines developed by ASCCP and published in the Journal Lower Genital Tract Disease 17(5):S1-S27 (2013). [facility] MANUAL 09/17/2018 10:32 AM EDT [facility] ANATOMIC PATHOLOGY - BIOTECH THREE Clinical History routine [facility] MANUAL 09/17/2018 10:32 AM EDT [facility] ANATOMIC PATHOLOGY - BIOTECH THREE HPV High Risk DNA Subtypes NEGATIVE [facility] MANUAL 09/17/2018 10:32 AM EDT [facility] ANATOMIC PATHOLOGY - BIOTECH THREE Test Description Specimens were tested for high risk HPV using the FDA approved Digene Hybrid Capture II kit, in the Diagnostic Molecular Oncology Lab at [facility]. This test can detect HPV high risk [...] abnormality. We endorse the recommendations of the [place] Society for Colposcopy and Cervical Pathology for management of pap test results, available at www.asccp.org. ASCCP guidelines also recommend HPV 16/18 genotyping in patients over the age of 30 who have had positive high risk HPV testing, but have a negative morphologic Pap test: (http://www.asccp .org/consensus.sh tml). [facility] MANUAL 09/17/2018 10:32 AM EDT [facility] ANATOMIC PATHOLOGY - [employer] THREE ASR Disclaimer The performance characteristics of [...] to perform high complexity clinical laboratory testing. [facility] MANUAL 09/17/2018 10:32 AM EDT [facility] ANATOMIC PATHOLOGY - BIOTECH THREE Resulting Agency Case was signed out at [facility], Department of Pathology, Biotech 3 CLIA [id number] [facility] MANUAL 09/17/2018 10:32 AM EDT [facility] ANATOMIC PATHOLOGY - BIOTECH THREE Report Header Gynecologic Cytology Report Case: [id number] Authorizing Provider: Oriana Ying Collected: 09/10/2018 [address] Ordering Location: [facility] Received: 09/10/2018 0900 [facility] Obstetrics and Gynecology First Screen: Alyssa Lewis Specimen: Screening ThinPrep Pap, Cervix/Endocervix 09/17/2018 10:32 AM EDT [facility] ANATOMIC PATHOLOGY - BIOTECH THREE Biopsy specimen (specimen) Cervix uteri structure / Unknown Non-Blood Collection / Unknown 09/10/2018 11:54 AM EDT 09/10/2018 9:00 AM EDT us Oriana Edwards LAB PATHOLOGY/CYTOLO GY ORDERABLES Final Result [facility] ANATOMIC PATHOLOGY - BIOTECH THREE [address] [place] [phone], from Last 3 Months or Most Recently Relevant to Health Maintenance Insurance [facility] HS/FREE CARE Care Teams Stogy Maker Relationship Specialty Start Date End Date Fabiola Bruce [address] [place] [id number] PCP - General Family Medicine 04/10/23
--- OUTSIDE RECORDS SUMMARY | 2025-06-11 11:44 | XMS_ITS | Encounter Summary ---
Author Organization [facility] [facility] Address [address] [facility] [address] [place] [address] Care Team Providers Care Academic Registrar Name Role Phone Fabiola Bruce Primary Care Provider [phone] Encounter Details Date Type Department Care Team (Latest Contact Info) Description 05/13/2019 Abstract [facility] CONVERSIONS Dental, Provider, DDS Social History Tobacco [...] Description 07/21/2025 9:00 AM EDT Office Visit [facility] OPTOMETRY [address] [place] [address] CasRadha, OD [address] [place] [address] 08/06/2025 9:15 AM EDT Office Visit [facility] MEDICINE [address] [place] [address] Fabiola Bruce FNP [address] [place] [address] 11/17/2025 1:00 PM EST Office Visit [facility] ADULT DENTAL [address] [place] [address] Heather Jane documented as of this encounter Visit Diagnoses Not on filedocumented in this encounter Care Teams Academic Registrar Relationship Specialty Start Date End Date Fabiola Bruce FNP [address] [place] [address] PCP - General Family Medicine 07/22/22 documented as of this encounter
--- OUTSIDE RECORDS SUMMARY | 2025-06-11 11:44 | XMS_ITS | Clinical Summary ---
Author Organization [facility] ity Address [address] [place] [address] Care Team Providers Care Immigration Inspector Name Role Phone Unavailable Primary Care Provider [...] Screening: P ap Smear 1995 COVID-19 Vaccine (1 - 2023-2 5 season) 2024 Pneumococcal Vaccine: [...]
== END 2025-06-11 10:55 | disposition home or self-care (01) ==
LOC: HO.US 10:54
PROVIDERS: PCP Registered Nurse; Visit Provider Student in an Organized Health Care Education/Training Program
DX: E04.2 Nontoxic multinodular goiter (principal); E03.9 Hypothyroidism, unspecified
CPT/HCPCS: 10005; 10006; 88173; 88305

== ENCOUNTER → 2025-06-11 10:54 | Outpatient (BNV) | payer OTHER, SELFPAY | PROVIDERS: PCP Registered Nurse; Visit Provider Student in an Organized Health Care Education/Training Program | DX: E04.2 Nontoxic multinodular goiter (principal) | CPT/HCPCS: 10005; 10006 ==

== ENCOUNTER 2025-07-09 13:57 | Outpatient (AMB) | payer OTHER, SELFPAY ==
[2025-07-09 13:59] VITALS: BP 130/78; PULSE 69; O2SAT 97; BMI 38.0
--- NOTE | 2025-07-09 13:59 | A.OFFVIS_ITS ---
Vital Signs 3 07/09/25 13:59 Height 4 ft 11 in Weight 188 lb 4.396 oz BMI 38.0 BP 130/78 Blood Pressure Location Lt brachial Position Sitting Pulse 69 Pulse Source Pulse Oximeter Pulse Oximetry (%) 97 Oxygen Delivery Method Room Air Intake Visit Reasons: Biopsy f/u Intake Note: Patient present today for biopsy results. Metalsmith Apprentice Required: Yes Metalsmith Apprentice Language: Software Developer Services: Metalsmith Apprentice Present Metalsmith Apprentice Name: Félix [id number] Information Interpreted: non-clinical & clinical Accompanied by: Self / Same As Patient Allergies acetaminophen (From Tylenol) Allergy (Verified 07/09/25 14:04) Stomach Upset amoxicillin Allergy (Verified 07/09/25 14:04) Anaphylaxis Medication List - Last Reconciled 07/09/25 by Emily Hair MD ibuprofen 600 mg PO TID levothyroxine (Synthroid) 50 mcg PO DAILY multivitamin 1 tab PO DAILY omeprazole 20 mg PO BID rosuvastatin (Crestor) 40 mg PO DAILY HPI Comments Details: 49-year-old female coming in today for follow up of nontoxic multinodular goiter. She has a history of hypothyroidism, currently on levothyroxine 50 mcg daily. has been on levothyroxine for a year, dose increased 25 to 50 sometime around February 2025. Most recent labs from March 2025 showed normal TSH. 05/20/2025: Ultrasound of the thyroid, I reviewed the images myself which showed a heterogenous gland. Right lower pole 1.6 cm solid hypoechoic nodule with possible extrathyroidal extension. Even done the report this is categorized as a TR 4 nodule, I would say this is a TR 5 nodule based on possible extrathyroidal extension. This meets criteria for FNA. Another right mid lobe 1.4 cm solid isoechoic nodule which is taller than wide TR 5 category also noted. This also meets criteria for FNA. Patient currently denies heat or cold intolerance, hair loss, palpitation, anxiety, mood changes, changes in appearance of eyes or vision changes, tremors, increased diaphoresis or dry skin. ? reports constipation. does reports tiredness, reports some weight gain. Patient denies any difficulty swallowing, pain on swallowing or voice changes or difficulty breathing. Patient denies any history of childhood neck radiation. Denies having ever used lithium, amiodarone or biotin supplements. Patient denies any family history of thyroid cancer Sister had thyroid nodules. mother: thyroid surgery for nodules, Interval history 06/11/2025: Status post FNA of the right midpole 1.4 cm nodule which came back as AUS, [place] category 3 with Hurthle cell change, Afirma benign, 4% risk of malignancy. FNA of the right lower pole 1.6 cm nodule also came back as AUS, [place] category 3 with follicular cells with focal crowding, Afirma results came back as benign, 4% risk of malignancy. Physical exam General: sitting comfortably in no acute distress HEENT: normocephalic/atraumatic, Neck: supple, palpable 1 cm right-sided nodule Cardiac: normal heart sounds Pulm: normal breath sounds B/L, no added breath sounds Abd: not distended, no tenderness Extremities: no edema, no signs of myxedema Neuro: AAO x3, Speech: normal, no facial droop, moving all 4 extremities Laboratory Tests 02/11/25 04/16/25 15:16 11:20 TSH 4.69 H 2.64 Free T4 0.83 EXAMINATION: US THYROID 05/20/25 HISTORY: ACQUIRED HYPOTHYROIDISM, SIS W/THYROID NODULES, TECHNIQUE: Real-time grayscale ultrasound imaging was performed and images were reviewed. COMPARISON: There are no prior studies available for comparison. FINDINGS: SIZE: The right thyroid lobe measures 6.8 x 2.3 x 2.0 cm. The left thyroid lobe measures 5.1 x 1.9 x 1.5 cm. The isthmus measures 8 mm. FLOW: Flow to the gland is increased. ECHOGENICITY: The echotexture of the gland is heterogeneous. NODULES: Multiple nodules are seen in the right thyroid lobe. The two largest nodules are described below: Nodule #: 1 Location: Lower pole of the right thyroid lobe measuring 1.6 x 1.1 x 1.3 cm. Shape: Wider than tall (0 points) Margins: Smooth (0 points) Echotexture: Hypoechoic (2 points) Composition: Solid (2 points) Calcifications: None (0 points) Total points: 4 TIRADS: TR4: Moderately suspicious. Nodule #: 2 Location: Midportion of the right thyroid lobe measuring 1.4 x 1.4 x 1.1 cm. Shape: Taller than wide (3 points) Margins: Smooth (0 points) Echotexture: Isoechoic (1 point) Composition: Solid (2 points) Calcifications: None (0 points) Total points: 6 TIRADS: TR5: Highly suspicious. US/US thyroid IMPRESSION: Multiple right thyroid nodules. According to ACR TI-RADS guidelines below, ultrasound-guided fine-needle aspiration of the two dominant nodules described above is recommended. 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 05/20/2025: Ultrasound of the thyroid, I reviewed the images myself which showed a heterogenous gland. Right lower pole 1.6 cm solid hypoechoic nodule with possible extrathyroidal extension. Even done the report this is categorized as a TR 4 nodule, I would say this is a TR 5 nodule based on possible extrathyroidal extension. This meets criteria for FNA. Another right mid lobe 1.4 cm solid isoechoic nodule which is taller than wide TR 5 category also noted. This also meets criteria for FNA. 06/11/2025: Status post FNA of the right midpole 1.4 cm nodule which came back as AUS, [place] category 3 with Hurthle cell change, Afirma benign, 4% risk of malignancy. FNA of the right lower pole 1.6 cm nodule also came back as AUS, [place] category 3 with follicular cells with focal crowding, Afirma results came back as benign, 4% risk of malignancy. She does not have any compressive symptoms. At this point we will plan to repeat an ultrasound in 1 year. 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 Labs from March 2025 showed normal thyroid function. Plan: -continue levothyroxine 50 mcg daily Plan See above Orders: Orders 2 US thyroid 06/08/26 E04.2 - Nontoxic multinodular goiter, E06.3 - Autoimmune thyroiditis TSH reflex Free T4 06/08/26 E04.2 - Nontoxic multinodular goiter, E06.3 - Autoimmune thyroiditis Patient Instructions: Continue levothyroxine 50 mcg daily Do ultrasound of the thyroid in May 2026, someone we will call you to schedule this, please make sure this is done a few weeks prior to your next follow up in June 2026 Do thyroid blood work few days prior to your follow up in 1 year, orders have been placed Contin?e con levotiroxina 50 mcg al d?a. Realice joy ecograf?a de tiroides en 2025. Le llamaremos para programarla. Aseg?rese de que se realice unas semanas antes de lockett pr?xima elliot de seguimiento en jacquelyn 2025. Realice un an?lisis de lurdes de tiroides unos d?as antes de lockett elliot de seguimiento dentro de un a?o. Se clark realizado las ?rdenes. 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
--- OUTSIDE RECORDS SUMMARY | 2025-07-09 14:20 | XMS_ITS | Encounter Summary ---
Author Organization [facility] Address [address] [facility] [address] [place] [address] Care Team Providers Care Event Coordinator Marketing And Sales Name Role Phone Fabiola Bruce Primary Care Provider [phone] Encounter Details Date Type Department Care Team (Latest Contact Info) Description 05/13/2019 Abstract [facility] CONVERSIONS Dental, Provider, DDS Social History [...] Care Team ( st Contact Info) Description 08/06/2025 9:15 AM EDT Office Visit [facility] MEDICINE [address] [place] [address] Fabiola Bruce FNP [address] [place] [address] 08/25/2025 1:00 PM EDT Office Visit [facility] OPTOMETRY [address] [place] [address] Radha Cardozo, OD [address] [place] [address] 11/17/2025 1:00 PM EST Office Visit [facility] ADULT DENTAL [address] [place] [address] Heather Jane documented as of this encounter Visit Diagnoses Not on filedocumented in this encounter Care Teams Event Coordinator Marketing And Sales Relationship Specialty Start Date End Date Fabiola Bruce FNP [address] [place] [address] PCP - General Family Medicine 07/22/22 documented as of this encounter
--- OUTSIDE RECORDS SUMMARY | 2025-07-09 14:20 | XMS_ITS | Clinical Summary ---
Author Organization [facility] Address [address] [address] Phone Care Team Providers Care Mechanical Commissioning Engineer Name Role Phone [facility], [facility] Primary Care Provider Allergies Active Allergy Reactions Criticality Noted Date Comments Amoxicillin 05/15/2018 Acetaminophen Nausea and/or Vomiting 12/28/2017 Medications rosuvastatin (CRESTOR) 10 MG tablet Active ondansetron (ZOFRAN-ODT) 4 MG disintegrating tablet (To-Go) Take 1-2 tablet(s) by mouth every 8 hours as needed for nausea/vomi ting 6 tablet 3 Active Social History Tobacco Use Types Packs/Day Years Used Date Smoking Tobacco: Never Smokeless Tobacco: Never Alcohol Use Standard Drinks/Week Comments No 0 (1 standard drink = 0.6 oz pur e alcohol) Education Answer Date Recorded Are you interested in more education? Not on priyanka e 03/24/2023 Are you concerned about learning? Not on file 03/24/2023 No 03/24/2023 No 03/24/2023 Digital Access Answer Date Recorded No 04/22/2023 No 04/22/2023 Reliable internet access at home? Not on file 04/22/2023 Device with a working camera? Not on file Comments Unknown Sex and Gender Information Value Date Recorded Sex Assigned at Female 12/28/2017 5:34 PM EST Legal Sex Female 10:31 PM EDT Gender Identity Female 12/28/2017 5:34 PM EST Sexual Orientation Straight 06/03/2024 4: 26 PM EDT Last Filed Vital Signs Vital Sign Reading Time Taken Comments Blood Pressure 137/93 06/26/2023 9:09 PM EDT Pulse 86 06/26/2023 7:47 PM EDT Temperature 36.7 C (98.1 F) 06/26/2023 9:09 PM EDT Respiratory Rate 16 06/26/2023 9:09 PM EDT Oxygen Saturation 100% 06/26/2023 9:09 PM EDT Inhaled Oxygen Concentration - - Weight 78.9 kg (174 lb) 06/26/2023 4:32 PM EDT Height 152.4 cm (5') 06/26/2023 4:32 PM EDT Body Mass Index 33.98 06/26/2023 4:32 PM EDT Plan of Treatment Health Maintenance Due Date Last Done Comments DEPRESSION SCREENING 1986 HEPATITIS C SCREENING 1992 HIV ONE-TIME SCREENING (18-6 5 YEARS) 1992 PAP SMEAR 1995 COLOGUARD 2019 COLONOSCOPY 2019 COLORECTAL CANCER SCREENING 2019 FIT TEST 2019 FOBT 2019 SIGMOIDOSCOPY 2019 VIRTUAL COLONOSCOPY 2019 MAMMOGRAM 05/25/2022 05/25/2020, 03/18/2019 Adult Td,Tdap Booster 08/22/2023 08/22/2013 COVID-19 VACCINE (4 - 2023-2 5 season) 2024 12/09/2021, 05/16/2021, 04/25/2021 PNEUMOCOCCAL VACCINES (50+ years) (1 of 1 - PCV) 2024 ZOSTER VACCINES (1 of 2) 2024 SCREENING FOR DIABETES 06/26/2026 06/26/2023 LIPID PANEL 06/21/2028 06/21/2023, 06/21/2023 SMOKING STATUS SCREENING (On ce After 26 Yrs) Completed 02/12/2020 HEPATITIS A VACCINES Aged Out No long er eligible based on patient's age to complete this topic HIB VACCINES Aged Out No longer eligi ble based on patient's age to complete this topic MENINGOCOCCAL VACCINES (ACWY) Aged Out No longer eligible based on patient's age to complete this topic MENINGOCOCCAL VACCINES (B) Aged Out N o longer eligible based on patient's age to complete this topic Medical Devices Not on file Insurance HEALTH SAFETY NET PARTIAL HEALTH SAFETY NET PARTIAL HEALTH SAFETY NET PARTIAL HEALTH SAFETY NET PARTIAL HEALTH SAFETY NET PARTIAL HEALTH SAFETY NET PARTIAL HEALTH SAFETY NET PARTIAL HEALTH SAFETY NET PARTIAL HEALTH SAFETY NET PARTIAL Care Teams Mechanical Commissioning Engineer Relationship Specialty Start Date End Date [facility] [address] [place] [id number] PCP - General 06/26/23 Additional Source Comments The information contained in this document represents components of the legal health record. It is not the complete legal health record.[facility]
--- OUTSIDE RECORDS SUMMARY | 2025-07-09 14:20 | XMS_ITS | Referral Summary ---
Author Organization [facility] Address [address] [place] [address] Care Team Providers Care Scientific Informatics Analyst Name Role Phone Fabiola Bruce Primary Care Provider [phone] Allergies Active Allergy Reactions Criticality Noted Date [...] AM EDT): The patient is a 47-year-old Monegasque-speaking female who comes in with a presenting [...] was being followed by neurology at the [facility] for vertigo from 5984-1223 and, at one point she also mentioned [...] and I rather suspect that this will roller turner to be migraine headaches. I considered [...] noted in visit 09/10/2018 will fu with GUITAR MAKER in 6-8 weeks. 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 Procedure Name Priority Date/Time Associated Diagnosis Comments COLONOSCOPY 10/29/2021 PAP Routine 09/10/2018 11:54 AM EDT Screening for cervical cancer from Last 3 Months or Most Recently Relevant to Health Maintenance Results * Due to [place] [employer] law, this organization might not be [...] and oxygen saturations were monitored continuously. The [id number] [id number] was introduced through the anus and advancedto [...] EDT) Specimen Adequacy Satisfactory for evaluation [facility] MANUAL 09/17/2018 10:32 AM EDT [facility] ANATOMIC PATHOLOGY - [facility] THREE Pathologist Cytology Interpretation Negative for intraepithelial lesion or malignancy. [facility] MANUAL 09/17/2018 10:32 AM EDT [facility] ANATOMIC PATHOLOGY - [facility] THREE at 1032 EDT Comment:This is the result o f a morphological screening test with an inherent possibility of a false negative interpretation. Shredding Machine Tender Statement This Pap test was examined by the [facility], [employer], [place], [place]. This Pap test was examined in accordance with the [facility] Cytopathology Laboratory written policy, which incorporates all CLIA mandates. Screening guidelines can be found in Am J Clin Pathol 2012;137:516-542. We endorse the practice guidelines developed by ASCCP and published in the Journal Lower Genital Tract Disease 17(5):S1-S27 (2013). [facility] MANUAL 09/17/2018 10:32 AM EDT [facility] ANATOMIC PATHOLOGY - [facility] Clinical History routine [facility] MANUAL 09/17/2018 10:32 AM EDT [facility] ANATOMIC PATHOLOGY - [facility] HPV High Risk DNA Subtypes NEGATIVE [facility] MANUAL 09/17/2018 10:32 AM EDT [facility] ANATOMIC PATHOLOGY - [facility] Test Description Specimens were tested for high risk HPV using the FDA approved Digene Hybrid Capture II kit, in the Diagnostic Molecular Oncology Lab at [facility]. This test can detect HPV [...] abnormality. We endorse the recommendations of the [place] Society for Colposcopy and Cervical Pathology for management of pap test results, available at www.asccp.org. ASCCP guidelines also recommend HPV 16/18 genotyping in patients over the age of 30 who have had positive high risk HPV testing, but have a negative morphologic Pap test: (http://www.asccp .org/consensus.sh tml). [facility] MANUAL 09/17/2018 10:32 AM EDT [facility] ANATOMIC PATHOLOGY - [facility] THREE ASR Disclaimer The performance characteristics of [...] to perform high complexity clinical laboratory testing. [facility] MANUAL 09/17/2018 10:32 AM EDT [facility] ANATOMIC PATHOLOGY - [facility] THREE Resulting Agency Case was signed out at [facility], Department of Pathology, [employer] 3 CLIA [id number] [facility] MANUAL 09/17/2018 10:32 AM EDT [facility] ANATOMIC PATHOLOGY - [facility] THREE Report Header Gynecologic Cytology Report Case: [id number] Authorizing Provider: Oriana Ying Collected: 09/10/2018 1154 [address] Ordering Location: [facility] Received: 09/10/2018 0900 [facility] Obstetrics and Gynecology First Screen: Alyssa Lewis Specimen: Screening ThinPrep Pap, Cervix/Endocervix 09/17/2018 10:32 AM EDT [facility] ANATOMIC PATHOLOGY - [facility] Biopsy specimen (specimen) Cervix uteri structure / Unknown Non-Blood Collection / Unknown 09/10/2018 11:54 AM EDT 09/10/2018 9:00 AM EDT us Oriana Edwards LAB PATHOLOGY/CYTOLO GY ORDERABLES Final Result [facility] ANATOMIC PATHOLOGY - [facility] THREE [address] [place] [address], from Last 3 Months or Most Recently Relevant to Health Maintenance Insurance [facility] HS/FREE CARE Care Teams Scientific Informatics Analyst Relationship Specialty Start Date End Date Fabiola Bruce [address] [place] [id number] PCP - General Family Medicine 04/10/23
--- OUTSIDE RECORDS SUMMARY | 2025-07-09 14:20 | XMS_ITS | Clinical Summary ---
Author Organization [facility] ity Address [address] [place] [address] Care Team Providers Care Fire Sprinkler Service Technician Name Role Phone Unavailable Primary Care Provider [...] 2024 Zoster Vaccines (1 of 2) 2024 Depression Screening 11/27/2024 Influenza Vaccine (#1) 2025 HIB Vaccines Aged [...]
== END 2025-07-09 14:12 | disposition home or self-care (01) ==
LOC: HO.ENCR 13:58
PROVIDERS: PCP Registered Nurse; Visit Provider Student in an Organized Health Care Education/Training Program
DX: E04.2 Nontoxic multinodular goiter (principal); E06.3 Autoimmune thyroiditis
CPT/HCPCS: 99213

== ENCOUNTER → 2025-07-09 13:57 | Outpatient (BNVA) | payer OTHER, SELFPAY | PROVIDERS: PCP Registered Nurse; Visit Provider Student in an Organized Health Care Education/Training Program | DX: E04.2 Nontoxic multinodular goiter (principal); E06.3 Autoimmune thyroiditis | CPT/HCPCS: 99212 ==

== ENCOUNTER 2025-07-30 10:23 | Outpatient (REF) | payer OTHER, SELFPAY ==
--- OUTSIDE RECORDS SUMMARY | 2025-07-30 12:11 | XMS_ITS | Encounter Summary ---
Author Organization [facility] Address [address] [facility] [address] [place] [address] Care Team Providers Care Production Operations Engineer Name Role Phone Fabiola Bruce Primary Care Provider [phone] Encounter Details Date Type Department Care Team (Latest Contact Info) Description 05/13/2019 Abstract [facility] CONVERSIONS Dental, Provider, DDS Social [...] Description 08/06/2025 9:15 AM EDT Office Visit [facility] MEDICINE [address] [place] [address] Fabiola Bruce FNP [address] [place] [address] 08/25/2025 1:00 PM EDT Office Visit [facility] OPTOMETRY [address] [place] [address] Radha Cardozo, OD [address] [place] [address] 11/17/2025 1:00 PM EST Office Visit [facility] ADULT DENTAL [address] [place] [address] Heather Jane documented as of this encounter Visit Diagnoses Not on filedocumented in this encounter Care Teams Production Operations Engineer Relationship Specialty Start Date End Date Fabiola Bruce FNP [address] [place] [address] PCP - General Family Medicine 07/22/22 documented as of this encounter
--- OUTSIDE RECORDS SUMMARY | 2025-07-30 12:12 | XMS_ITS | Clinical Summary ---
Author Organization [employer] Address [address] [place] [address] Care Team Providers Care Food Sales Clerk Name Role Phone Fabiola Bruce CORINA Primary Care Provider [phone] Allergies Active Allergy Reactions Criticality Noted Date [...] EVERY MORNING 90 capsule 1 024 Active cetirizine (ZyrTEC) 10 MG tabletIndications [...] per day. 90 tablet 3 025 Active magnesium oxide (Mag-Ox) 400 MG tabletIndications :Sleep disturbance TAKE 1 TABLET BY MOUTH AT BEDTIME 90 tablet 1 025 Active levothyroxine (Synthroid) 50 MCG tablet Take 1 tablet (50 mcg) by mouth before breakfast. 90 tablet 1 025 2025 Active diphenhydrAMINE (BENADryl) 25 MG tablet Take 1 tablet (25 mg) by mouth every 8 (eight) hours if needed for itching. 30 tablet 1 025 Active pantoprazole (ProtoNix) 20 MG EC tabletIndications :Gastroesophageal reflux disease, unspecified whether esophagitis present TAKE 1 TABLET BY MOUTH EVERY MORNING BEFORE BREAKFAST DO NOT BREAK, CRUSH, DISSOLVE OR CHEW 90 tablet 3 025 Active pantoprazole (ProtoNix) 20 MG EC tabletIndications :Gastroesophageal reflux disease, unspecified whether esophagitis present TAKE 1 TABLET BY MOUTH EVERY MORNING BEFORE BREAKFAST. DO NOT BREAK, CRUSH, DISSOLVE OR CHEW 90 tablet 3 024 2024 Discontinued Active Problems Problem Noted [...] w/ good effect Acquired hypothyroidism 03/03/2024 Overview (04/16/2025): Lab Results Component Value Date TSH 2.64 04/16/2025 - Continue levothyroxine 50 mcg daily Assessment & Plan (04/16/2025 3:39 PM EDT): Sister has a history of thyroid nodules, will check thyroid US. Denies any compressive symptoms. Assessment & Plan (01/16/2025 8:50 PM EST): [...] Assessment & Plan (05/08/2024 11:11 AM EDT): February 2024 - confirmation of [...] (09/20/2024): Routine Health Maintenance Optometry: [facility] Eye Care eval Dec 2023. Next Dec 2024 Dental: established with dental home BMD: starting at 64 y/o Last PE: 05/08/24 Routine Cancer Screening Breast CA: Mammogram BIRADS 2 in Jun 2024 Cervical CA: Pap NIL/HPV neg 01/2022 Colonoscopy: 10/29/[address]pti Maravilla at [facility]. 2mm polyp in cecum. Recommend repeat colonoscopy in 5 years. Intermittent chest pain 07/11/2023 Assessment & Plan (11/09/2023 3:55 PM EST): Personal history of HLD. Pertinent family history of PA - mother and sister (@62 y/o) Denies palpitations, SOB, GUNDERSON, blurry vision, N/V/D Evaluated by [facility] Cardiology May 2023, thought to be low probability chest pain syndrome, but high risk for CAD. Stress test, ETT and EKG reassuring Jun - Aug 2023. ED precautions Assessment & Plan (07/16/2023 11:46 AM EDT): Personal history of HLD. Pertinent family history of PA - mother and sister (@62 y/o) Denies palpitations, SOB, GUNDERSON, blurry vision, N/V/D Evaluated by [facility] Cardiology May 2023, thought to be low probability chest pain syndrome, but high risk for CAD. Plan for ETT and follow up in 4 months ED precautions Mixed hyperlipidemia 04/01/2023 Assessment & [...] Assessment & Plan (11/09/2023 4:11 PM EST): Continue with rosuvastatin 40mg nightly Last lipids 03/20/23: LDL 169, HDL 50, TC 243, TG 112 Repeat lipid panel ordered Assessment & Plan (07/16/2023 11:39 AM EDT): Continue with rosuvastatin 40mg nightly Last lipids 03/20/23: LDL 169, HDL 50, TC 243, TG 112 Plan to order repeat lipid and LFT through PCP office next appt (approx Sep 2023) if not completed through Cards Assessment & Plan (04/01/2023 4:47 PM EDT): Continue with rosuvastatin 20mg nightly Last lipids 03/20/23: LDL 169, HDL 50, TC 243, TG 112 Intermittent headache 11/29/2022 Assessment & Plan (04/16/2025 4:02 PM EDT): -Head CT 10/07/22 read as enlarged sella with flattened pituitary. -Following with [facility] Neuro - Dr. Rajan -Last consult appt in Jun 2023 with plan to order brain MRI -Tapered off nortriptyline and doing well -Continues Excedrin PRN (also prescribed magnesium nightly, but reports not helpful for GUNDERSON) -Encouraged to cont symptomatic management, avoid triggers, follow up precautions Assessment & Plan (08/11/2024 7:17 PM EDT): -Head CT 10/07/22 read as enlarged sella with flattened pituitary. -Following with [facility] Neuro - Dr. Rajan -Last consult appt in Jun 2023 with plan to order brain MRI -Tapered off nortriptyline and doing well -Continues Excedrin PRN Assessment & Plan (11/09/2023 3:52 PM EST): -Head CT 10/07/22 read as enlarged sella with flattened pituitary. -Following with [facility] Neuro - Dr. Rajan -Last consult appt in Jun 2023 with plan to order brain MRI -Continues on nortriptyline 25mg nightly through Neuro -Continues Excedrin PRN Assessment & Plan (07/16/2023 11:44 AM EDT): -Head CT 10/07/22 read as enlarged sella with flattened pituitary. -Following with [facility] Neuro - Dr. Rajan -Last consult [...] with flattened pituitary. Pt was referred to [facility] Neuro but did not hear [...] Assessment & Plan (11/09/2023 4:10 PM EST): Start Fiber lax 625mg daily. Reviewed med use, encouraged good hydration Continue lifestyle interventions Previous meds: -Miralax, colace, senna Assessment & Plan (07/16/2023 11:42 AM EDT): Senna 8.6mg, 2 tablets nightly as needed Colace 100-200mg nightly as needed Previous meds: [...] noted in visit 09/10/2018 will fu with PARTS COUNTER CLERK in 6-8 weeks. If she does not tolerate could consider mycolog vs. Calcitriol ointment. 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 Tabares in hematology at [facility] until [address] Kaylee HUSSEIN Heme/Onc. 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 Plan to follow up 1 year. Assessment & Plan (11/09/2023 3:53 PM EST): History of chronic leukopenia (at least since 2006) Previously followed by Dr. Tabares in hematology at [facility] until [address] Kaylee HUSSEIN Heme/Onc. 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 Plan to follow up 1 year. Assessment & Plan (03/26/2023 7:47 PM EDT): History of chronic leukopenia (at least since 2006) Previously followed by Dr. Tabares in hematology at [facility] until [address] 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 Plan to follow up [id number] Benign paroxysmal positional vertigo 11/04/2010 Major depressive disorder, single episode 2009 Vitiligo 11/04/2010 Assessment & Plan (03/26/2023 7:42 PM EDT): Followed by [facility] Derm, continue with Protopic 0.1% ointment [...] Encounters Date Type Department Care Team Description 07/29/2025 Patient Outreach [facility] MEDICINE [address] [place] [address] Fabiola Bruce FNP Pre-visit Planning ([facility] screening was completed on 01/15/2025) 07/18/[address] [facility] MEDICINE [address] [place] [address] Fabiola Bruce FNP Gastroesophageal reflux disease, unspecified whether esophagitis present 06/11/2025 Orders Only GENERIC EXTERNAL DATA DEPARTMENT Provider, Generic External Data from Last 3 Months Immunizations Immunization Administration [...] Sign Reading Time Taken Comments Blood Pressure 122/80 04/24/2025 10:43 AM EDT Pulse 64 04/24/2025 10:43 AM EDT Temperature 36.4 C (97.5 F) 04/24/2025 10:43 AM EDT Respiratory Rate 16 04/24/2025 10:43 AM EDT Oxygen Saturation 99% 04/16/2025 10:23 AM EDT Inhaled Oxygen Concentration - - Weight 84.4 kg (186 lb) 04/24/2025 10:43 AM EDT Height 152.7 cm (5' 0.13 ) 04/16/2025 10:23 AM E DT Body Mass Index 36.17 04/16/2025 10:23 AM EDT Plan of Treatment Upcoming Encounters Date Type Department Care Team (Late st Contact Info) Description 08/06/2025 9:15 AM EDT Office Visit [facility] MEDICINE [address] [place] [address] Fabiola Bruce, SHOWROOM SALES ASSISTANT [address] [place] [address] 08/25/2025 1:00 PM EDT Office Visit [facility] OPTOMETRY [address] [place] [address] Cas, Radha, OD [address] [place] [address] 11/17/2025 1:00 PM EST Office Visit [facility] ADULT DENTAL [address] [place] [address] Heather Jane Health Maintenance Due Date Last Done Comments CT Colonography 1975 FIT DNA/Cologuard 1975 FIT 1975 FOBT 1975 Sigmoidoscopy 1975 Alcohol/Substance Use Screening 1986 Family Planning (PISQ) 1989 Zoster Vaccines (1 of 2) 1993 Dental Prophylaxis 07/21/2020 01/20/2020, 0 05/13/2019, 11/09/2018, Additional history exists Dental Oral Exam 08/10/2020 02/07/2020, 04/2018, 07/14/2017, Additional history exists Dental X-Ray: Full Mouth 06/02/2021 06/01/2018, 04/27 Mammogram 07/24/2025 07/24/2024, 06/28, 06/13/2022, Additional history exists COVID-19 Vaccine ( season) 2025 12/09/2021, 05/16/2021, 04/25/2021 Influenza Vaccine (#1) 2025 , 10/08/2018, 08/15/2016, Additional history exists Depression Screening 01/15/2026 01/15/2025, 01/15/20 25 SDOH Screening 01/15/2026 01/15/2025 Disability Screening 04/16/2026 04/16/2025 Dental X-Ray: Bitewings 04/19/2026 04/18/20 25, 09/30/2020, 01/20/2020, Additional history exists Tobacco Screening 04/24/2026 04/24/2025 Colonoscopy 10/29/2026 10/29/2021, 10/29/2021 Colorectal Cancer Screening 10/29/2026 Cervical Cancer Screening 02/14/2027 HPV/Cotest 02/14/2027 02/14/2022 Pap Smear 02/14/2027 02/14/2022, 03/0 11/2021, 01/25/2022 DTaP/Tdap/Td Vaccines (3 - Td or Tdap) 05/08/2034 05/08/2024, 08/22/2013 RSV Patients and Patients Aged 60 years or older (1 - 1-dose 75+ series) 2049 HIV Screening Completed 02/21/2024, 2 02/2023, 09/23/2020, Additional history exists Hepatitis C Screening [...] Procedure Name Priority Date/Time Associated Diagnosis Comments CELL BLOCK Routine 06/11/2025 11:36 AM EDT US THYROID Routine 05/20/2025 3:33 PM EDT Acquired hypothyroidism BITEWING - SINGLE RADIOGRAPHIC IMAGE Routine 04/18/2025 11:30 AM EDT History of painful gingiva BI MAMMOGRAM SCREENING TOMOSYNTHESIS BILATERAL Routine 07/24/2024 10:30 AM EDT HEPATITIS C VIRAL RNA, QUANTITATIVE, REAL-TIME PCR Routine 02/21/2024 12:25 PM EDT Healthcare maintenance HIV 1/2 ANTIGEN/ANTIBODY, FOURTH GENERATION W/RFL Routine 02/21/2024 12:25 PM EDT Healthcare maintenance THINPREP IMAGING PAP AND HPV MRNA E6/E7, WITH CT/NG, TRICHOMONAS Routine 02/14/2022 2:43 PM EDT HM COLONOSCOPY Routine 10/29/2021 Healthcare maintenance PERIODIC ORAL EVALUATION - ESTABLISHED PATIENT Routine 02/07/2020 12:00 AM EDT PROPHYLAXIS - ADULT Routine 01/20/2020 1 2:00 AM EST INTRAORAL - COMPLETE SERIES OF RADIOGRAPHIC IMAGES Routine 06/01/2018 12:00 AM EDT from Last 3 Months or Most Recently Relevant to Health Maintenance Results * Cell Block (06/11/2025 11:36 AM EDT) 06/11/2025 11:3 6 AM EDT 06/11/2025 11:45 AM EDT [facility] LABS - 07/25/2025 9:51 AM EDT ----- ------- Name: Jeane Urena Age/Sex: 49/F : 1975 Unit#: [id number] Attend Dr: Emily Hair MD Re06/11/25 Status: DEP REF Location: HO.US Disch: ----- ------- SPEC : [id number] RECD: 06/11/25 STATUS: DENISE HUERTA NUM: [id number] NORMA: 06/11/[address]: Emily Hair MD ENTERED: 06/11/25 SP TYPE: Cytology OTHR DR: Fabiola Bruce SHOWROOM SALES ASSISTANT ORDERED: Cell Block/2, Fine Ndl Asp/2 Addendum Addendum 1 Entered: 07/25/25 Afirma Test Results (A): Benign - AFIRMA GSC (genomic sequencing buffing machine tender): Benign (risk of malignancy approximately 4%) See entire report in the Laboratory/Pathology section of the patient's EMR. A copy of the report has been sent to the ordering provider's office. [facility] performed [facility], [place], [place]; IA#[id number], #[id number] Addendum Signed (signature on file) Cyrus Mcbride MD 07/25/25 0951 ----- ------- Diagnosis A. Thyroid, right mid pole 1.4 cm nodule, fine needle aspiration: Atypia of undetermined significance ([place] category 3). COMMENT (A): Low specimen cellularity. Occasional small groups of follicular epithelial cells with Hurthle cell change are present; no significant colloid is identified. The cell block has similar findings. Afirma results will be addended. B. Thyroid, right lower pole 1.6 cm nodule, fine needle aspiration: Atypia of undetermined significance ([place] category 3). COMMENT (B): Low specimen cellularity. Occasional small groups of follicular epithelial cells are present with focal crowding; no significant colloid is identified. The cell block has similar findings. Afirma results will be addended. Clinical History Right mid 1.4 cm and right lower 1.6 cm thyroid nodule FNA biopsy CONTINUED ON NEXT PAGE ----- ------- Name: Jeane Urena Age/Sex: 49/F : 1975 Unit#: [id number] Attend Dr: Emily Hair MD Re06/11/25 Status: DEP REF Location: [facility] Disch: ----- ------- SPEC : [id number] RECD: 06/11/25 STATUS: DENISE HUERTA NUM: [id number] NORMA: 06/11/25-113 [facility] DR: Emily Hair MD ENTERED: 06/11/25-1206 SP TYPE: Cytology OT DR: Fabiola Bruce SHOWROOM SALES ASSISTANT ORDERED: Cell Block/2, Fine Ndl Asp/2 Material Received A. Right mid 1.4 cm thyroid nodule FNA biopsy B. Right lower 1.6 cm thyroid nodule FNA biopsy Gross Description A. Received are 30 cc of bloody tinged CytoLyt fluid from which a ThinPrep slide and cell block are prepared. B. Received are 30 cc of bloody tinged CytoLyt fluid from which a ThinPrep slide and cell block are prepared. This case was reviewed intradepartmentally. IHC S/NG Disclaimer NOTE: Unless otherwise stated, all tissue is formalin-fixed and paraffin-embedded. Some or all of the immunohistochemical tests reported herein may have been developed and their performance characteristics determined by [facility]. They have not been cleared or approved by the U.S. Food and Drug Administration (FDA). However, the FDA has determined that such clearance or approval is not necessary. This laboratory is certified under the Clinical Laboratory Improvement Amendments of 1988 (CLIA) as qualified to perform high complexity clinical laboratory testing. Copies To: Emily Hair MD [facility] Endocrinology [address] [place] [address] [address] [place], [place] [id number] [email or web address] Fabiola Bruce SHOWROOM SALES ASSISTANT [address] [place] [address] ----- ------- Signed (signature on file) Cyrus Mcbride MD 06/13/25 1032 ----- ------- END OF REPORT us Generic External Data Provider LAB CYTOLOGY ROSEMARY MARQUEZ Final Result [facility] [address] [place] [address] [phone] * US Thyroid (05/20/2025 3:33 PM EDT) Anatomical Region Laterality Modality Head, Neck Ultrasound 05/20/2025 3:33 PM EDT Narrative 05/21/2025 7:22 AM EDT [address] [address] Ultrasound Report Signed Patient: Jeane Urena MR#: [id number] : 1975 Acct:[id number] Age/Sex: 49 / F ADM Date: 05/20/25 Loc: HO.US Attending Dr: Fabiola Bruce SHOWROOM SALES ASSISTANT Ordering Physician: Fabiola Bruce Date of Service: 05/20/25 Procedure(s): US thyroid Accession Number(s): [id number] cc: Fabiola Bruce EXAMINATION: US THYROID HISTORY: ACQUIRED HYPOTHYROIDISM, SIS W/THYROID NODULES, TECHNIQUE: Real-time grayscale ultrasound imaging was performed and images were reviewed. COMPARISON: There are no prior studies available for comparison. FINDINGS: SIZE: The right thyroid lobe measures 6.8 x 2.3 x 2.0 cm. The left thyroid lobe measures 5.1 x 1.9 x 1.5 cm. The isthmus measures 8 mm. FLOW: Flow to the gland is increased. ECHOGENICITY: The echotexture of the gland is heterogeneous. NODULES: Multiple nodules are seen in the right thyroid lobe. The two largest nodules are described below: Nodule #: 1 Location: Lower pole of the right thyroid lobe measuring 1.6 x 1.1 x 1.3 cm. Shape: Wider than tall (0 points) Margins: Smooth (0 points) Echotexture: Hypoechoic (2 points) Composition: Solid (2 points) Calcifications: None (0 points) Total points: 4 TIRADS: TR4: Moderately suspicious. Nodule #: 2 Location: Midportion of the right thyroid lobe measuring 1.4 x 1.4 x 1.1 cm. Shape: Taller than wide (3 points) Margins: Smooth (0 points) Echotexture: Isoechoic (1 point) Composition: Solid (2 points) Calcifications: None (0 points) Total points: 6 TIRADS: TR5: Highly suspicious. US/US thyroid IMPRESSION: Multiple right thyroid nodules. According to ACR TI-RADS guidelines below, ultrasound-guided fine-needle aspiration of the two dominant nodules described above is recommended. ACR TI-RADS Guidelines TR1 (0 points): Benign, No follow-up or biopsy required TR2 (2 points): Not Suspicious, No biopsy or follow up indicated TR3 (3 points): Mildly Suspicious, FNA if >= 2.5 cm, Follow if >= 1.5 cm TR4 (4-6 points): Moderately Suspicious, FNA if >= 1.5 cm, Follow if >= 1.0 cm TR5 (>=7 points): Highly Suspicious, FNA if >= 1.0 cm, Follow if >= 0.5 cm Electronically signed by: Joaquin Jolly MD 05/21/2025 07:19 AM EDT RP Dictated By: Joaquin Jolly MD Signed By: <Electronically signed by Joaquin Jolly MD in OV> 05/21/25 0719 DD/ 1533 TD/TT: 05/20/25 1538 Weight Count Operator: Procedure Note Donotuseinterpreter, Image - 05/21/2025 [place] [address] Ultrasound Report Signed Patient: Sherri Urena#: [id number] : 1975Acct:[id number] Age/Sex: 49 / FADM Date: 05/20/25 Loc: HO.US Attending Dr: Fabiola ARRIAGA Ordering Physician: Fabiola Bruce Date of Service: 05/20/25 Procedure(s): US thyroid Accession Number(s): [id number] cc: Fabiola Bruce EXAMINATION: US THYROID HISTORY: ACQUIRED HYPOTHYROIDISM, SIS W/THYROID NODULES, TECHNIQUE: Real-time grayscale ultrasound imaging was performed and images were reviewed. COMPARISON: There are no prior studies available for comparison. FINDINGS: SIZE: The right thyroid lobe measures 6.8 x 2.3 x 2.0 cm. The left thyroid lobe measures 5.1 x 1.9 x 1.5 cm. The isthmus measures 8 mm. FLOW: Flow to the gland is increased. ECHOGENICITY: The echotexture of the gland is heterogeneous. NODULES: Multiple nodules are seen in the right thyroid lobe. The two largest nodules are described below: Nodule #: 1 Location: Lower pole of the right thyroid lobe measuring 1.6 x 1.1 x 1.3 cm. Shape: Wider than tall (0 points) Margins: Smooth (0 points) Echotexture: Hypoechoic (2 points) Composition: Solid (2 points) Calcifications: None (0 points) Total points: 4 TIRADS: TR4: Moderately suspicious. Nodule #: 2 Location: Midportion of the right thyroid lobe measuring 1.4 x 1.4 x 1.1 cm. Shape: Taller than wide (3 points) Margins: Smooth (0 points) Echotexture: Isoechoic (1 point) Composition: Solid (2 points) Calcifications: None (0 points) Total points: 6 TIRADS: TR5: Highly suspicious. US/US thyroid IMPRESSION: Multiple right thyroid nodules. According to ACR TI-RADS guidelines below, ultrasound-guided fine-needle aspiration of the two dominant nodules described above is recommended. ACR TI-RADS Guidelines TR1 (0 points): Benign, No follow-up or biopsy required TR2 (2 points): Not Suspicious, No biopsy or follow up indicated TR3 (3 points): Mildly Suspicious, FNA if >= 2.5 cm, Follow if >= 1.5 cm TR4 (4-6 points): Moderately Suspicious, FNA if >= 1.5 cm, Follow if >= 1.0 cm TR5 (>=7 points): Highly Suspicious, FNA if >= 1.0 cm, Follow if >= 0.5 cm Electronically signed by: Joaquin Jolly MD 05/21/2025 07:19 AM EDT Dictated By: Joaquin Jolly MD Signed By: <Electronically signed by Joaquin Jolly MD in OV> 05/21/25 0719 DD/ 1533 TD/TT: 05/20/25 1538 Weight Count Operator: Fabiola ARRIAGA IMG US PROCEDURES Final Result * BI Mammogram Screening Tomosynthesis Bilateral (07/24/2024 10:30 AM EDT) Anatomical Region Laterality Modality Breast Bilateral Mammography 07/24/2024 10:3 0 AM EDT Narrative 08/16/2024 4:43 PM EDT [facility] [address] [place], [place] [address] Mammography Report Signed Patient: Jeane Urena MR#: [id number] : 1975 Acct:[id number] Age/Sex: 48 / F ADM Date: 07/24/24 Loc: HO.MAMMO Attending Dr: Fabiola ARRIAGA Ordering Physician: Fabiola Bruce Results: 2Benig n Findings Date of Service: 07/24/24 Follow Up: 1 Year From Orig ina Mammogram Procedure(s): MM tomosynthesis screening BI Accession Number(s): [id number] cc: Fabiola Bruce EXAMINATION: MM SCREENING DIGITAL [...] Norma Sheehan DO 08/16/2024 04:40 PM EDT RP Dictated By: Norma Sheehan DO Signed By: <Electronically signed by Norma Sheehan DO in OV> 08/16/24 1640 DD/ 1030 TD/TT: 07/24/24 1051 Weight Count Operator: Procedure Note Donotuseinterpreter, Image - 08/16/2024 [facility] [address] [place] [address] Mammography Report Signed Patient: Sherri Urena#: [id number] : 1975Acct:[id number] Age/Sex: 48 / FADM Date: 07/24/24 Loc: HO.MAMMO Attending Dr: Fabiola Bruce SHOWROOM SALES ASSISTANT Ordering Physician: Fabiola BrucePResults: 2Benig n Findings Date of Service: 07/24/24Follow Up: 1 Year From Orig inal Mammogram Procedure(s): MM tomosynthesis screening BI Accession Number(s): [id number] cc: Fabiola Bruce SHOWROOM SALES ASSISTANT EXAMINATION: MM SCREENING DIGITAL BREAST TOMOSYNTHESIS, BILATERAL [...] Norma Sheehan DO 08/16/2024 04:40 PM EDT RP Dictated By: Norma Sheehan DO Signed By: <Electronically signed by Norma Sheehan DO in OV> 08/16/24 1640 DD/ 1030 TD/TT: 07/24/24 1051 Weight Count Operator: us Fabiola ARRIAGA IMG BI PROCEDURES Edited Resul t - Final * Hepatitis C Viral RNA, Quantitative, Real-Time PCR (02/21/2024 12:25 PM EDT) Hepatitis C Viral Load <15 NOT DETECTED NOT DETECTED IU/mL [facility] HCV Log PCR <1.18 NOT DETECTED NOT DETECTED Log IU/mL [facility] Comment:This test was perfor med using Real-Time Polymerase ChainReaction.Reportable Range: 15 IU/mL to 100,000,000 IU/mL(1.18 Log IU/mL to 8.00 Log IU/mL).The analytical performance characteristics of thisassay have been determined by [facility].The modifications have not been cleared or approved bythe FDA. This assay has been validated pursuant to theCLIA regulations and is used for clinical purposes.For more information on this test, go to:http://education.[employer]/faq/BOQ25d4(This link is being provided for informational/educational purposes only.)THIS TEST WAS PERFORMED AT:[id number] [place] [id number] DELGADO MD Blood 02/21/2024 12:2 5 PM EDT 02/21/2024 1:24 PM EDT Fabiola TRUONGP LAB BLOOD ORDERABLES Final Res ult [facility] [address] [place] [address] [phone] * HIV-1/2 Antigen and Antibodies, Fourth Generation, with Reflexes (02/21/2024 12:25 PM EDT) HIV AB/AG Nonreactive Nonreactive [facility] Comment:HIV-1 p24 Ag and/or HIV-1/HIV-2 Ab not detected.A test result that is nonreactive does not exclude thepossibility of exposure to or infection with HIV-1 and/orHIV-2. Nonreactive results in this assay for individualswith prior exposure to HIV-1 and/or HIV-2 may be due toantigen and antibody levels that are below the limit ofdetection of this assay.[employer] HIV Ag/Ab Combo assay result andsupplemental assay results should be interpreted inconjunction with the patient's clinical presentation,history and other laboratory results. If the results areinconsistent with clinical evidence, additional testing issuggested to confirm the result. Blood Venous blood specimen / Unknown 02/21/2024 12:25 PM EDT 02/21/2024 1:24 PM EDT us Fabiola Bruce [facility] LAB BLOOD ORDERABLES Final Res ult [facility] [address] [place] [phone] * THINPREP TIS PAP AND HPV mRNA E6/E7, CT/NG, TRICH (02/14/2022 2:43 PM EDT) Chlamydia trachomatis RNA, TMA, Urogenital NOT DETECTED NOT DETECTED [facility] Clinical Information: None given [facility] COMMENT SEE COMMENT [facility] Comment: The analytical performance characteristics of this assay, when used to test SurePath(TM) specimens have been determined by [facility]. The modifications have not been cleared or approved by the FDA. This assay has been validated pursuant to the CLIA regulations and is used for clinical purposes. For additional information, please refer to https://education.ComparaOnline.[employer] [place]/faq/JXZ330 (This link is being provided for information/ educational purposes only.) COMMENT SEE COMMENT [facility] Comment: EXPLANATORY NOTE: The Pap is a screening test for cervical cancer. It is not a diagnostic test and is subject to false negative and false positive results. It is most reliable when a satisfactory sample, regularly obtained, is submitted with relevant clinical findings and history, and when the Pap result is evaluated along with historic and current clinical information. COMMENT: This Pap test has been evaluated with computer assisted technology. [facility] Shotweld Operator: SEE COMMENT [facility] Comment: RXB, CT(ASCP) CT screening location: [address] [address] HPV nRNA E6/E7 Not Detected Not Detected [facility] Comment: Methodology: Gate Tender-Mediated Amplification This assay detects E6/E7 viral messenger RNA (mRNA) from 14 high-risk HPV types (16,18,31,33,35,39,45,51,52,56,58,59,66,68). The analytical performance characteristics of this assay have been determined by [facility]. The modifications have not been cleared or approved by the FDA. This assay has been validated pursuant to the CLIA regulations and is used for clinical purposes. For additional information, please refer to http://CityHook.StopTheHacker/faq/SIZ145g8 (This link if provided for information/ educational purposes only.) Infection Shift in vaginal luis carlos suggestive of bacterial vaginosis. [facility] Interpretation/Re sult: Negative for intraepithelial lesion or malignancy. [facility] LMP: NONE GIVEN [facility] Neisseria gonorrhoeae RNA, TMA, Urogenital NOT DETECTED NOT DETECTED [facility] Prev. BX: NONE GIVEN [facility] Prev. PAP: NONE GIVEN [facility] SOURCE: Cervix [facility] Statement Of Adequacy: SEE COMMENT [facility] Comment: Satisfactory for evaluation. Endocervical/transformation zone component present. Partially obscuring inflammation Age and/or menstrual status not provided Trichomonas vaginalis, QL, TMA, PAP Vial NOT DETECTED NOT DETECTED [facility] Comment: The analytical performance characteristics of this assay have been determined by [facility]. The modifications have not been cleared or approved by the FDA. This assay has been validated pursuant to the CLIA regulations and is used for clinical purposes. For additional information, please refer to http://education.StopTheHacker/ faq/Trichomonastma (This link is being provided for information/ educational purposes only.) 02/14/2022 2:43 PM EDT us Daniela Castellon NP LAB PATHOLOGY ORDERABLES Final Result [facility] [address] [place] [address] * (ABNORMAL) Colonoscopy (10/29/2021) Colonoscopy Abnormal(A ) Normal Result [facility] Dipti Maravilla HEALTH MAINTENANCE Final Result from Last 3 Months or Most Recently Relevant to Health Maintenance Insurance [facility] HSN PARTIAL DENTAL - HSN PARTIAL (MEDICAID) Care Teams Food Sales Clerk Relationship Specialty Start Date End Date Fabiola Bruce FNP [address] [place] [id number] PCP - General Family Medicine 07/22/22
--- OUTSIDE RECORDS SUMMARY | 2025-07-30 12:12 | XMS_ITS | Clinical Summary ---
Author Organization [facility] Address [address] [address] Phone Care Team Providers Care Returned Materials Inspector Name Role Phone [facility], [facility] Primary Care Provider Allergies Active Allergy Reactions Criticality Noted Date Comments Amoxicillin 05/15/2018 Acetaminophen Nausea and/or Vomiting 12/28/2017 Medications rosuvastatin (CRESTOR) 10 MG tablet Active ondansetron (ZOFRAN-ODT) 4 MG disintegrating tablet (To-Go) Take 1-2 tablet(s) by mouth every 8 hours as needed for nausea/vomi ting 6 tablet Active Social History Tobacco Use Types Packs/Day [...] HEPATITIS C SCREENING 1992 HIV ONE-TIME SCREENING (18-65 YEARS) 1992 PAP SMEAR 1995 COLOGUARD 2019 COLONOSCOPY 2019 COLORECTAL CANCER SCREENING 2019 FIT TEST 2019 FOBT 2019 SIGMOIDOSCOPY 2019 VIRTUAL COLONOSCOPY 2019 MAMMOGRAM 05/25/2022 05/25/2020, 03/18/2019 Adult Td,Tdap Booster 08/22/2023 08/22/2013 PNEUMOCOCCAL VACCINES (50+ years) (1 of 1 - PCV) 2024 ZOSTER VACCINES (1 of 2) 2024 INFLUENZA VACCINE (#1) 2025 , 10/08/2018, 08/15/2016, Additional history exists COVID-19 VACCINE ( - 2024- season) 2025 12/09/2021, 05/16/2021, 04/25/2021 SCREENING FOR DIABETES 06/26/2026 06/26/2023 LIPID PANEL 06/21/2028 06/21/2023, 06/21/2023 SMOKING STATUS SCREENING (Once After 26 Yrs) Completed 02/12/2020 HEPATITIS A [...] PARTIAL HEALTH SAFETY NET PARTIAL Care Teams Returned Materials Inspector Relationship Specialty Start Date End Date [facility] [address] [place] [address] PCP - General 06/26/23 Additional Source Comments The information contained in this document represents components of the legal health record. It is not the complete legal health record.[facility]
--- OUTSIDE RECORDS SUMMARY | 2025-07-30 12:12 | XMS_ITS | Encounter Summary ---
Author Organization [employer] Address [address] [place] [address] Care Team Providers Care Labelling Machine Operator Name Role Phone Fabiola Bruce Primary Care Provider [phone] Reason for Visit * Reason Comments Pre-visit Planning SDOH screening was c ompleted on 01/15/2025 Encounter Details Date Type Department Care Team ([facility] st Contact Info) Description 07/29/2025 Patient Outreach [facility] MEDICINE [address] [place] [address] Fabiola Bruce FNP [address] [place] [address] Pre-visit Planning (SDOH screening was completed on 01/15/2025) Social History Tobacco Use Types Packs/Day Years [...] AM EDT documented as of this encounter Progress Notes * Carolina Garcia - 07/29/2025 2:22 PM EDT NICK Sultana placed successful outbound call to patient for pre-visit planning. Patient name and confirmed. Patient confirms appt date and time, and has transportation arrangements. Biggest concern for appointment at this time is no concerns for now. Patient advised to bring to appointment a photo id and insurance card. Appropriate screenings completed in anticipation of appointment. documented in this encounter Plan of Treatment Upcoming Encounters Date Type Department Care Team (Late st Contact Info) Description 08/06/2025 9:15 AM EDT Office Visit [facility] MEDICINE [address] [place] [address] Fabiola Bruce FNP [address] [place] [address] 08/25/2025 1:00 PM EDT Office Visit [facility] OPTOMETRY [address] [place] [address] Radha Cardozo, OD [address] [place] [address] 11/17/2025 1:00 PM EST Office Visit [facility] ADULT DENTAL [address] [place] [address] Heather Jane documented as of this encounter Visit Diagnoses Not on filedocumented in this encounter Additional Health Concerns Assessment Noted Time PHQ-9 Depression Total Score: 1 01/15/20 25 10:09 AM EST documented as of this encounter Care Teams Labelling Machine Operator Relationship Specialty Start Date End Date Fabiola Bruce FNP [address] [place] [address] PCP - General Family Medicine 07/22/22 documented as of this encounter
--- OUTSIDE RECORDS SUMMARY | 2025-07-30 12:12 | XMS_ITS | Encounter Summary ---
Author Organization [facility] Address [address] [place] [address] [address] [address] Care Team Providers Care Sex Worker Or Escort Name Role Phone Fabiola Bruce Primary Care Provider [phone] Encounter Details Date Type Department Care Team (Late st Contact Info) Description 11/24/2022 Telephone [facility] MEDICINE [address] [place] [address] Fabiola Bruce FNP [address] [place] [address] Social History Tobacco Use Types Packs/Day Years [...] Department Care Team (Late Contact Info) Description 08/06/2025 9:15 AM EDT Office Visit [facility] MEDICINE [address] [place] [address] Fabiola Bruce FNP [address] [place] [address] 08/25/2025 1:00 PM EDT Office Visit [facility] OPTOMETRY [address] [place] [address] Radha Cardozo, OD [address] [place] [address] 11/17/2025 1:00 PM EST Office Visit [facility] ADULT DENTAL [address] [place] [address] Heather Jane documented as of this encounter Visit Diagnoses Not on filedocumented in this encounter Care Teams Sex Worker Or Escort Relationship Specialty Start Date End Date Fabiola Bruce FNP [address] [place] [address] PCP - General Family Medicine 07/22/22 documented as of this encounter
--- OUTSIDE RECORDS SUMMARY | 2025-07-30 12:12 | XMS_ITS | Encounter Summary ---
Author Organization [facility] Address [address] [facility] [address] [place] [address] Care Team Providers Care Software Quality Assurance Engineer Name Role Phone Fabiola Bruce Primary Care Provider [phone] Reason for Visit * Reason Comments Med Refill Encounter Details Date Type Department Care Team (Late st Contact Info) Description 03/01/2023 Refill [facility] [address] [place], [place] [phone] Ashlyn Alexandre MD [address] [place] [address] Acute cough Social History Tobacco Use Types [...] Description 08/06/2025 9:15 AM EDT Office Visit [facility] MEDICINE [address] [place], [place] [phone] Fabiola Bruce FNP [address] [place], [place] [phone] 08/25/2025 1:00 PM EDT Office Visit [facility] OPTOMETRY [address] [place] [address] Cas, Radha, OD [address] [place] [address] 11/17/2025 1:00 PM EST Office Visit [facility] ADULT DENTAL [address] [place] [address] Heather Jane documented as of this encounter Visit Diagnoses Diagnosis Acute cough documented in this encounter Care Teams Software Quality Assurance Engineer Relationship Specialty Start Date End Date Fabiola Bruce FNP [address] [place] [address] PCP - General Family Medicine 07/22/22 documented as of this encounter
--- OUTSIDE RECORDS SUMMARY | 2025-07-30 12:12 | XMS_ITS | Clinical Summary ---
Author Organization [facility] Address [address] [place] [address] Care Team Providers Care Unhairer Name Role Phone Unavailable Primary Care Provider [...]
--- OUTSIDE RECORDS SUMMARY | 2025-07-30 12:12 | XMS_ITS | Clinical Summary ---
Author Organization [facility] Address [address] [place] [address] Care Team Providers Care Rope Twisting Machine Operator Name Role Phone Fabiola Bruce Primary Care Provider [phone] Allergies Active Allergy Reactions Criticality Noted Date [...] AM EDT): The patient is a 47-year-old Portuguese-speaking female who comes in with a presenting [...] was being followed by neurology at the [place] for vertigo from [phone] and, at one point she also mentioned [...] and I rather suspect that this will turn down attendant to be migraine headaches. I considered the [...] noted in visit 09/10/2018 will fu with BIOMATHEMATICIAN in 6-8 weeks. 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 Not on file Not on file Not [...] (2 - Td or Tdap) 08/22/2023 08/22/2013 Pneumococcal Vaccine: 50+ Ye ars (1 of 1 - PCV) 2024 Zoster Vaccines (1 of 2) 2024 Alcohol/Substance Use Screening 11/27/2024 Depression Screening and Follow-Up 11/27/2024 Social Drivers of Health Sheila ual Screening 11/27/2024 COVID-19 Vaccine (4 - 2024-2 6 season) 2025 12/09/2021, 05/16/2021, 04/25/2021 Influenza Vaccine (#1) 2025 , 10/08/2018, 08/15/2016, Additional history exists Colonoscopy 10/29/2026 10/29/2021, 01/2021, 10/29/2021, Additional history exists RSV Vaccine (60+ years old a nd patients) (1 - 1-dose 75+ series) 2049 Hepatitis C Screening Completed 03/20/2023 HIV Screening Completed 02/21/2024, 01/26, 03/20/2023 Procedures * Due to [place] [employer] law, this organization might not be sharing negative HIV tests. Procedure Name Priority Date/Time Associated Diagnosis Comments COLONOSCOPY 10/29/2021 PAP Routine 09/10/2018 11:54 AM EDT Screening for cervical cancer from Last 3 Months or Most Recently Relevant to Health Maintenance Results * Due to [place] [employer] law, this organization might not be sharing [...] and oxygen saturations were monitored continuously. The [id number] OLYMPUS [id number] was introduced through the anus and advancedto [...] AM EDT) Specimen Adequacy Satisfactory for evaluation [facility] 09/17/2018 10:32 AM EDT [facility] Pathologist Cytology Interpretation Negative for intraepithelial lesion or malignancy. [facility] 09/17/2018 10:32 AM EDT [facility] at 1032 EDT Comment:This is the result o f a morphological screening test with an inherent possibility of a false negative interpretation. Stack Yield Engineer Statement This Pap test was examined by the [facility], [employer], [place], [place]. This Pap test was examined in accordance with the [facility] Cytopathology Laboratory written policy, which incorporates all CLIA mandates. Screening guidelines can be found in Am J Clin Pathol 2012;137:516-542. We endorse the practice guidelines developed by ASCCP and published in the Journal Lower Genital Tract Disease 17(5):S1-S27 (2013). [facility] MANUAL 09/17/2018 10:32 AM EDT [facility] Clinical History routine [facility] 09/17/2018 10:32 AM EDT [facility] HPV High Risk DNA Subtypes NEGATIVE [facility] 09/17/2018 10:32 AM EDT [facility] Test Description Specimens were tested for high risk HPV using the FDA approved Digene Hybrid Capture II kit, in the Diagnostic Molecular Oncology Lab at [facility]. This test can detect HPV [...] abnormality. We endorse the recommendations of the [place] Society for Colposcopy and Cervical Pathology for management of pap test results, available at www.asccp.org. ASCCP guidelines also recommend HPV 16/18 genotyping in patients over the age of 30 who have had positive high risk HPV testing, but have a negative morphologic Pap test: (http://www.asccp .org/consensus.sh tml). [facility] MANUAL 09/17/2018 10:32 AM EDT [facility] ASR [...] to perform high complexity clinical laboratory testing. [facility] MANUAL 09/17/2018 10:32 AM EDT [facility] Resulting Agency Case was signed out at [facility], Department of Pathology, [employer] CLIA [id number] [facility] 09/17/2018 10:32 AM EDT [facility] Report Header Gynecologic Cytology Report Case: [id number] Authorizing Provider: Oriana Ying Collected: 09/10/2018 1154 [address] Ordering Location: [facility] Received: 09/10/2018 0900 [facility] Obstetrics and Gynecology First Screen: Alyssa Lewis Specimen: Screening ThinPrep Pap, Cervix/Endocervix 09/17/2018 10:32 AM EDT [facility] Biopsy specimen (specimen) Cervix uteri structure / Unknown Non-Blood Collection / Unknown 09/10/2018 11:54 AM EDT 09/10/2018 9:00 AM EDT us Oriana Edwards LAB PATHOLOGY/CYTOLO GY ORDERABLES Final Result [facility] [address] [place] [id number], [place] from Last 3 Months or Most Recently Relevant to Health Maintenance Insurance [facility] HSNO/FREE CARE Care Teams Rope Twisting Machine Operator Relationship Specialty Start Date End Date Fabiola Bruce [address] [place] [phone] PCP - General Family Medicine 04/10/23
== END 2025-07-30 10:24 | disposition home or self-care (01) ==
LOC: HO.MAMMO 10:23
PROVIDERS: PCP Registered Nurse; Visit Provider Registered Nurse
DX: Z12.31 Encounter for screening mammogram for malignant neoplasm of breast (principal)
CPT/HCPCS: 77063; 77067

== ENCOUNTER → 2025-07-30 10:45 | Outpatient (BNV) | payer OTHER, SELFPAY | PROVIDERS: PCP Registered Nurse; Visit Provider Internal Medicine | DX: Z12.31 Encounter for screening mammogram for malignant neoplasm of breast (principal) | CPT/HCPCS: 77063; 77067 ==

== ENCOUNTER 2025-07-31 10:01 | Outpatient (REF) | payer OTHER, SELFPAY ==
--- OUTSIDE RECORDS SUMMARY | 2025-07-31 09:00 | XMS_ITS | Encounter Summary ---
Author Organization [employer] [facility] Address [address] [facility] 7t [place] [address] Care Team Providers Care Physician Relations Representative Name Role Phone Sheliajaqueline Fabiola CORINA Primary Care Provider [phone] Reason for Referral * Consultation (Routine) - Pending Review Specialty Diagnoses / Procedures Referred By Jose soria Referred To Contact Gastroenterology Diagnoses Gastroesophageal reflux disease, unspecified whether esophagitis present Adenomatous polyp of colon, unspecified part of colon Pat Alcala MD [address] [place] [address] Phone: tel: fax: Referral ID Status Reason Start Date Expiration Date Visits Requested Visits Authorized [id number] Pending Review Specialty Services Required 07/31/2025 07/31/2026 1 1 Reason for Visit * Reason Comments Nausea Encounter Details Date Type Department Care Team (Latest Contact Info) Description 07/31/2025 9:00 AM EDT Office Visit [facility] [address] [place] [address] [phone] Pat Alcala MD [address] [place] [address] [phone] Gastroesophageal reflux disease, unspecified whether esophagitis present (Primary Dx); Adenomatous polyp of colon, unspecified part of colon; Nausea Social History Tobacco Use Types Packs/Day Years [...] Sign Reading Time Taken Comments Blood Pressure 130/81 07/31/2025 8:52 AM EDT Pulse 60 07/31/2025 8:52 AM EDT Temperature 36.3 C (97.3 F) 07/31/2025 8:52 AM EDT Respiratory Rate 16 07/31/2025 8:52 AM EDT Oxygen Saturation - - Inhaled Oxygen Concentration - - Weight 84.7 kg (186 lb 12.8 oz) 07/31/2025 8:52 AM EDT Height 152.7 cm (5' 0.13 ) 07/31/2025 8:52 AM ED T Body Mass Index 36.32 07/31/2025 8:52 AM EDT documented in this encounter Progress Notes * Terese Mcclure - 07/31/2025 9:00 AM EDT Subjective Patient ID: Jeane Jean is a 49 y.o. female with past medical history of hyperlipidemia, BPPV, GERD, chronic constipation, headaches and depression who presents to walk in clinic for Nausea. Hx of GERD. Had been on omeprazole without relief, currently on pantoprazole. Colonoscopy was Oct 2021, repeat in 5 years. Pt reports right epigastric burning and discomfort that has been ongoing for about 2 weeks. She note associated nausea. Denies taking medication on empty stomach and no excessive caffeine use. Discussed increasing Protonix, and pt agrees to trial this for only 2 weeks. Denies any stool changes or bleeding. Denies vomiting. Review of Systems Constitutional: Negative for fever and unexpected weight change. Respiratory: Negative for shortness of breath. Cardiovascular: Negative for chest pain. Gastrointestinal: Positive for abdominal pain and nausea. Negative for blood in stool, diarrhea andrectal pain. Genitourinary: Negative for difficulty urinating. Musculoskeletal: Negative for back pain. Objective Visit Vitals BP 130/81 (BP Location: Left arm, Patient Position: Sitting, BP Cuff Size: Adult) Pulse 60 Temp 97.3 ??F (36.3 ??C) (Temporal) Resp 16 Body mass index is 36.32 kg/m??. Physical Exam Constitutional: Appearance: Normal appearance. Cardiovascular: Rate and Rhythm: Normal rate and regular rhythm. Heart sounds: Normal heart sounds. Pulmonary: Effort: Pulmonary effort is normal. Breath sounds: Normal breath sounds. Musculoskeletal: Cervical back: Normal range of motion. Neurological: General: No focal deficit present. Mental Status: She is alert. Psychiatric: Behavior: Behavior normal. Assessment & Plan Gastroesophageal reflux disease, unspecified whether esophagitis present -No evidence of acute abdomen. Suspect exacerbation of acid reflux. Symptoms mild. -Will trial increasing antacid(Protonix) from 20mg to 40mg just for 2 weeks. Starting 07/31/25 -Ordered H. Pylori test 07/31/25 -Prescribed Zofran for nausea 07/31/25 -Referred to GI 07/31/25 -ER precautions discussed. -Seek medical attention for worsening symptoms. Orders: Helicobacter pylori Antigen, EIA, Stool; Future pantoprazole (Protonix) 40 MG EC tablet; Take 1 tablet (40 mg) by mouth Once per day. If symptoms controlled, return to 20mg daily Do not crush, chew, or split. Referral to Gastroenterology; Future Adenomatous polyp of colon, unspecified part of colon Colonoscopy: 10/29/[address] Dipti Maravilla at [facility]. 2mm polyp in cecum. Recommend repeatcolonoscopy in 5 years. Pt now has insurance so will refer to local GI for GERD but pt will need colonoscopy in 10/2026 -referred to GI 07/31/25 Orders: Referral to Gastroenterology; Future Nausea -will trial Zofran 07/31/25 Orders: ondansetron (Zofran) 4 MG tablet; Take 1 tablet (4 mg) by mouth every 8 (eight) hours if needed fornausea or vomiting for up to 7 days. Future Appointments Date Time Provider Department Center 08/06/2025 9:15 AM CORINA García MEDICINE [facility] 08/25/2025 1:00 PM Radha Cardozo OD VISION [facility] 11/17/2025 1:00 PM Heather CHOUDHURY [facility] I, Terese Mcclure, am serving as a scribe to document services personally performed by Dr. Umaña, based on the patient's response to questions by provider and providers statements to me. documented in this encounter Miscellaneous Notes * Assessment & Plan Note - Pat Alcala MD - 07/31/2025 9:00 AM EDT Associated Problem(s): Adenomatous polyp of colon Colonoscopy: 10/29/[address] Dipti Maravilla at [facility]. 2mm polyp in cecum. Recommend repeatcolonoscopy in 5 years. Pt now has insurance so will refer to local GI for GERD but pt will need colonoscopy in 10/2026 -referred to GI 07/31/25 Orders: Referral to Gastroenterology; Future * Assessment & Plan Note - Terese Mcclure - 07/31/2025 9:00 AM EDTAssociated Problem(s): Gastroesophageal reflux disease -No evidence of acute abdomen. Suspect exacerbation of acid reflux. Symptoms mild. -Will trial increasing antacid(Protonix) from 20mg to 40mg just for 2 weeks. Starting 07/31/25 -Ordered H. Pylori test 07/31/25 -Prescribed Zofran for nausea 07/31/25 -Referred to GI 07/31/25 -ER precautions discussed. -Seek medical attention for worsening symptoms. Orders: Helicobacter pylori Antigen, EIA, Stool; Future pantoprazole (Protonix) 40 MG EC tablet; Take 1 tablet (40 mg) by mouth Once per day. If symptoms controlled, return to 20mg daily Do not crush, chew, or split. Referral to Gastroenterology; Future documented in this encounter Plan of Treatment Upcoming Encounters Date Type Department Care Team (Late st Contact Info) Description 08/06/2025 9:15 AM EDT Office Visit [facility] [address] [place] [address] Fabiola Bruce, HAND KISS SETTER [address] [place] [address] 08/25/2025 1:00 PM EDT Office Visit [facility] OPTOM[facility]RY [address] [place] [address] Cas, Radha, OD [address] [place] [address] 11/17/2025 1:00 PM EST Office Visit [facility] ADULT DENTAL [address] [place] [address] Heather Jane Scheduled Orders Name Type Priority Associated Diagnoses Orde r Schedule Helicobacter pylori Antigen, EIA, Stool Lab Routine Gastroesophageal reflux disease, unspecified whether esophagitis present Expected: 07/31/2025, Expires: 07/31/2026 Scheduled Referrals Name Type Priority Associated Diagnoses Order Schedule Referral to Gastroenterology Outpatient Referral Routine Gastroesophageal reflux disease, unspecified whether esophagitis present Adenomatous polyp of colon, unspecified part of colon Expected: 07/31/2025 (Approximate), Expires: 07/31/2026 documented as of this encounter Visit Diagnoses Diagnosis Gastroesophageal reflux disease, unspecified whether esophagitis present- Primary Adenomatous polyp of colon, unspecified part of colon Nausea Nausea alone documented in this encounter Additional Health Concerns Assessment Noted Time PHQ-9 Depression Total Score: 1 01/15/20 25 10:09 AM EST documented as of this encounter Care Teams Physician Relations Representative Relationship Specialty Start Date End Date Fabiola Bruce FNP [address] [place] [id number] PCP - General Family Medicine 07/22/22 documented as of this encounter
--- OUTSIDE RECORDS SUMMARY | 2025-07-31 11:09 | XMS_ITS | Encounter Summary ---
Author Organization [employer] [facility] Address [address] [facility] 7t [place] [address] Care Team Providers Care Head Resident Name Role Phone Fabiola Bruce Primary Care Provider [phone] Encounter Details Date Type Department Care Team (Latest Contact Info) Description 05/13/2019 Abstract [facility] CONVERSIONS Dental, Provider, DDS Social History [...] Description 08/06/2025 9:15 AM EDT Office Visit [facility] MEDICINE [address] [place] [address] Fabiola Bruce FNP [address] [place] [address] 08/25/2025 1:00 PM EDT Office Visit [facility] OPTOMETRY [address] [place] [address] Radha Cardozo, OD [address] [place] [address] 11/17/2025 1:00 PM EST Office Visit [facility] ADULT DENTAL [address] [place] [address] Heather Jane documented as of this encounter Visit Diagnoses Not on filedocumented in this encounter Care Teams Head Resident Relationship Specialty Start Date End Date Fabiola Bruce FNP [address] [place] [address] PCP - General Family Medicine 07/22/22 documented as of this encounter
--- OUTSIDE RECORDS SUMMARY | 2025-07-31 11:09 | XMS_ITS | Encounter Summary ---
Author Organization [employer] Address [address] [facility] 7t [place] [address] Care Team Providers Care Group Cio Name Role Phone Fabiola Bruce Primary Care Provider [phone] Reason for Visit * Reason Comments Med Refill Encounter Details Date Type Department Care Team (Late st Contact Info) Description 03/01/[address] [facility] [address] [place], [place] [phone] Ashlyn Alexandre MD [address] [place] [address] Acute cough Social History Tobacco Use Types [...] Description 08/06/2025 9:15 AM EDT Office Visit [facility] MEDIC[facility] [address] [place], [place] [phone] Fabiola Bruce FNP [address] [place], [place] [phone] 08/25/2025 1:00 PM EDT Office Visit [facility] OPTOMETRY [address] [place] [address] Cas, Radha, OD [address] [place] [address] 11/17/2025 1:00 PM EST Office Visit [facility] ADULT DENTAL [address] [place] [address] Heather Jane documented as of this encounter Visit Diagnoses Diagnosis Acute cough documented in this encounter Care Teams Group Cio Relationship Specialty Start Date End Date Fabiola Bruce FNP [address] [place] [address] PCP - General Family Medicine 07/22/22 documented as of this encounter
--- OUTSIDE RECORDS SUMMARY | 2025-07-31 11:09 | XMS_ITS | Clinical Summary ---
Author Organization [facility] Address [address] [place] [address] Care Team Providers Care Negotiations Director Name Role Phone Unavailable Primary Care Provider [...] Cervical Cancer Screening: P ap Smear 1995 Pneumococcal Vaccine: 50+ Ye ars (1 of 1 - PCV) 2024 Zoster Vaccines (1 of 2) 2024 Depression Screening 11/27/2024 COVID-19 Vaccine (1 - 2023-2 5 season) 2025 Influenza Vaccine (#1) 2025 HIB Vaccines Aged [...]
--- OUTSIDE RECORDS SUMMARY | 2025-07-31 11:09 | XMS_ITS | Clinical Summary ---
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 Procedure Name Priority Date/Time Associated Diagnosis Comments COLONOSCOPY 10/29/2021 PAP Routine 09/10/2018 11:54 AM EDT Screening for cervical cancer from Last 3 Months or Most Recently Relevant to Health Maintenance Results * Due to [place] [employer] law, this organization might not be sharing [...] and oxygen saturations were monitored continuously. The [id number] OLYMPUS [id number] was introduced through the anus and advancedto [...] AM EDT) Specimen Adequacy Satisfactory for evaluation [facility] MANUAL 09/17/2018 10:32 AM EDT [facility] ANATOMIC PATHOLOGY - [facility] Pathologist Cytology Interpretation Negative for intraepithelial lesion or malignancy. [facility] MANUAL 09/17/2018 10:32 AM EDT [facility] ANATOMIC PATHOLOGY - [facility] at 1032 EDT Comment:This is the result o f a morphological screening test with an inherent possibility of a false negative interpretation. 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 This Pap test was examined in accordance with the [facility] Cytopathology Laboratory written policy, which incorporates all CLIA mandates. Screening guidelines can be found in Am J Clin Pathol 2012;137:516-542. We endorse the practice guidelines developed by ASCCP and published in the Journal Lower Genital Tract Disease 17(5):S1-S27 (2013). [facility] MANUAL 09/17/2018 10:32 AM EDT [facility] ANATOMIC [facility]OLOGY - [facility] Clinical History routine [facility] 09/17/2018 10:32 AM EDT [facility] ANATOMIC PATHOLOGY - [facility] HPV High Risk DNA Subtypes NEGATIVE [facility] MANUAL 09/17/2018 10:32 AM EDT [facility] ANATOMIC [facility]OLOGY - [facility] Test Description Specimens were tested for high risk HPV using the FDA approved Digene Hybrid Capture II kit, in the Diagnostic Molecular Oncology Lab at [facility]. This test can detect HPV high risk [...] abnormality. We endorse the recommendations of the [place] Society for Colposcopy and Cervical Pathology for management of pap test results, available at www.asccp.org. ASCCP guidelines also recommend HPV 16/18 genotyping in patients over the age of 30 who have had positive high risk HPV testing, but have a negative morphologic Pap test: (http://www.asccp .org/consensus.sh tml). [facility] MANUAL 09/17/2018 10:32 AM EDT [facility] ANATOMIC PATHOLOGY - [facility] ASR [...] to perform high complexity clinical laboratory testing. [facility] MANUAL 09/17/2018 10:32 AM EDT [facility] ANATOMIC PATHOLOGY - [facility] Resulting Agency Case was signed out at [facility], Department of Pathology, [employer] 3 CLIA [id number] [facility] MANUAL 09/17/2018 10:32 AM EDT [facility] ANATOMIC [facility]OLOGY - [facility] Report Header Gynecologic Cytology Report Case: [id number] Authorizing Provider: Oriana Ying Collected: 09/10/2018 1154 [address] Ordering Location: [facility] Received: 09/10/2018 0900 [facility] Obstetrics and Gynecology First Screen: Alyssa Lewis Specimen: Screening ThinPrep Pap, Cervix/Endocervix 09/17/2018 10:32 AM EDT [facility] ANATOMIC PATHOLOGY - [facility] Biopsy specimen (specimen) Cervix uteri structure / Unknown Non-Blood Collection / Unknown 09/10/2018 11:54 AM EDT 09/10/2018 9:00 AM EDT us Oriana Edwards LAB PATHOLOGY/CYTOLO GY ORDERABLES Final Result [facility] ANATOMIC PATHOLOGY - [facility] THREE [address] [place] [address], [place] from Last 3 Months or Most Recently Relevant to Health Maintenance Insurance [facility] HSNO/FREE CARE Care Teams Rn Recovery Relationship Specialty Start Date End Date Fabiola Bruce [address] [place] [address] [phone] PCP - General Family Medicine 04/10/23
--- OUTSIDE RECORDS SUMMARY | 2025-07-31 11:09 | XMS_ITS | Encounter Summary ---
Author Organization [employer] Address [address] 7[address] [place] [address] Care Team Providers Care Cork Floor Installer Name Role Phone Fabiola Bruce CORINA Primary Care Provider [phone] Encounter Details Date Type Department Care Team (Latest Contact Info) Description 07/31/2025 Travel Social History Tobacco Use Types Packs/Day [...] Description 08/06/2025 9:15 AM EDT Office Visit [facility] MEDICINE [address] [place] [address] Fabiola Bruce FNP [address] [place] [address] 08/25/2025 1:00 PM EDT Office Visit [facility] OPTOMETRY [address] [place] [address] Cas, Radha, OD [address] [place] [address] 11/17/2025 1:00 PM EST Office Visit [facility] ADULT DENTAL [address] [place] [address] Heather Jane documented as of this encounter Visit Diagnoses Not on filedocumented in this encounter Additional Health Concerns Assessment Noted Time PHQ-9 Depression Total Score: 1 01/15/20 25 10:09 AM EST documented as of this encounter Care Teams Cork Floor Installer Relationship Specialty Start Date End Date Fabiola Bruce FNP [address] [place] [address] PCP - General Family Medicine 07/22/22 documented as of this encounter
--- OUTSIDE RECORDS SUMMARY | 2025-07-31 11:09 | XMS_ITS | Encounter Summary ---
Author Organization [employer] [facility] Address [address] [place] [address] [address] [address] Care Team Providers Care Vocational Rehabilitation Counselor Name Role Phone Fabiola Bruce Primary Care Provider Encounter Details Date Type Department Care Team (Late st Contact Info) Description 11/24/2022 Telephone [facility] MEDICINE [address] [place] [address] Fabiola Bruce FNP [address] [place] [address] Social History Tobacco Use Types Packs/Day Years [...] Description 08/06/2025 9:15 AM EDT Office Visit [facility] MEDICINE [address] [place] [address] Fabiola Bruce FNP [address] [place] [address] 08/25/2025 1:00 PM EDT Office Visit [facility] OPTOMETRY [address] [place] [address] Radha Cardozo, OD [address] [place] [address] 11/17/2025 1:00 PM EST Office Visit [facility] ADULT DENTAL [address] [place] [address] Heather Jane documented as of this encounter Visit Diagnoses Not on filedocumented in this encounter Care Teams Vocational Rehabilitation Counselor Relationship Specialty Start Date End Date Fabiola Bruce FNP [address] [place] [address] PCP - General Family Medicine 07/22/22 documented as of this encounter
--- OUTSIDE RECORDS SUMMARY | 2025-07-31 11:10 | XMS_ITS | Clinical Summary ---
Author Organization [facility] Address [address] [address] Phone Care Team Providers Care Cupboard Builder Name Role Phone [facility] Primary Care Provider Allergies Active Allergy Reactions [...] [employer] PARTIAL Care Teams Cupboard Builder Relationship Specialty Start Date End Date [facility] [address] [place] [address] PCP - General 06/26/23 Additional Source Comments The information contained in this document represents components of the legal health record. It is not the complete legal health record.[facility]
--- OUTSIDE RECORDS SUMMARY | 2025-07-31 11:10 | XMS_ITS | Clinical Summary ---
Author Organization [employer] Address [address] [facility] 7[address] [place] [address] Care Team Providers Care Sales Agent Casualty Insurance Name Role Phone Fabiola Bruce CORINA Primary Care Provider [phone] Allergies Active Allergy Reactions Criticality Noted Date [...] VAGINALLY TWICE A WEEK 42.5 g 3 Active Multiple Vitamin (multivitamin) tablet Take 1 tablet by mouth Once per day. 90 tablet 3 025 Active magnesium oxide (Mag-Ox) 400 MG tabletIndications :Sleep disturbance TAKE 1 TABLET BY MOUTH AT BEDTIME 90 tablet 1 Active levothyroxine (Synthroid) 50 MCG tablet Take 1 tablet (50 mcg) by mouth before breakfast. 90 tablet 1 025 2025 Active diphenhydrAMINE (BENADryl) 25 MG tablet Take 1 tablet (25 mg) by mouth every 8 (eight) hours if needed for itching. 30 tablet 1 025 Active pantoprazole (Protonix) 40 MG EC tabletIndications :Gastroesophageal reflux disease, unspecified whether esophagitis present Take 1 tablet (40 mg) by mouth Once per day. If symptoms controlled, return to 20mg daily Do not crush, chew, or split. 30 tablet 025 2025 Active ondansetron (Zofran) 4 MG tabletIndications :Nausea Take 1 tablet (4 mg) by mouth every 8 (eight) hours if needed for nausea or vomiting for up to 7 days. 10 tablet 025 2024 Active pantoprazole (ProtoNix) 20 MG EC tabletIndications :Gastroesophageal reflux disease, unspecified whether esophagitis present TAKE 1 TABLET BY MOUTH EVERY MORNING BEFORE BREAKFAST. DO NOT BREAK, CRUSH, DISSOLVE OR CHEW 90 tablet 3 024 2024 Discontinued pantoprazole (ProtoNix) 20 MG EC tabletIndications :Gastroesophageal reflux disease, unspecified whether esophagitis present TAKE 1 TABLET BY MOUTH EVERY MORNING BEFORE BREAKFAST DO NOT BREAK, CRUSH, DISSOLVE OR CHEW 90 tablet 3 025 2024 Discontinued Active Problems Problem Noted Date Diagnosed Date Adenomatous polyp of colon 07/31/2025 Assessment & Plan (07/31/2025 9:26 AM EDT): Colonoscopy: 10/29/[address] Dipti Maravilla at [facility]. 2mm polyp in cecum. Recommend repeat colonoscopy in 5 years. Pt now has insurance so will refer to local GI for GERD but pt will need colonoscopy in 10/2026 -referred to GI 07/31/25 Orders: Referral to Gastroenterology; Future Sleep disturbance 08/11/2024 Assessment & Plan (01/16/2025 [...] Gastroesophageal reflux disease 05/08/2024 Assessment & Plan (07/31/2025 9:26 AM EDT): -No evidence of acute abdomen. Suspect exacerbation [...] chew, or split. Referral to Gastroenterology; Future Assessment & Plan (05/08/2024 11:13 AM EDT): [...] Assessment & Plan (08/11/2024 7:15 PM EDT): February 2024 - confirmation of elevated [...] (09/20/2024): Routine Health Maintenance Optometry: [facility] eval Dec 2023. Next Dec 2024 Dental: established with dental home BMD: starting at 64 y/o Last PE: 05/08/24 Routine Cancer Screening Breast CA: Mammogram BIRADS 2 in Jun 2024 Cervical CA: Pap NIL/HPV neg 01/2022 Colonoscopy: 10/29/[address] Dipti Maravilla at [facility]. 2mm polyp in cecum. Recommend repeat colonoscopy in 5 years. Intermittent chest pain 07/11/2023 Assessment & Plan (11/09/2023 3:55 PM EST): Personal history of HLD. Pertinent family history of PR - mother and sister (@62 y/o) Denies palpitations, SOB, GUNDERSON, blurry vision, N/V/D Evaluated by [facility] Cardiology May 2023, thought to be low probability chest pain syndrome, but high risk for CAD. Stress test, ETT and EKG reassuring Jun - Aug 2023. ED precautions Assessment & Plan (07/16/2023 11:46 AM EDT): Personal history of HLD. Pertinent family history of PR - mother and sister (@62 y/o) Denies palpitations, SOB, GUNDERSON, blurry vision, N/V/D Evaluated by [facility] Cardiology May 2023, thought to [...] enlarged sella with flattened pituitary. -Following with [facility] Neuro - Dr. Rajan -Last consult appt [...] enlarged sella with flattened pituitary. -Following with [facility] Neuro - Dr. Rajan -Last consult appt in Jun 2023 with plan to order brain MRI -Tapered off nortriptyline and doing well -Continues Excedrin PRN Assessment & Plan (11/09/2023 3:52 PM EST): -Head CT 10/07/22 read as enlarged sella with flattened pituitary. -Following with [facility] Neuro - Dr. Rajan -Last consult appt in Jun 2023 with plan to order brain MRI -Continues on nortriptyline 25mg nightly through Neuro -Continues Excedrin PRN Assessment & Plan (07/16/2023 11:44 AM EDT): -Head CT 10/07/22 read as enlarged sella with flattened pituitary. -Following with [facility] Neuro - Dr. Rajan -Last consult appt [...] with flattened pituitary. Pt was referred to [facility] Neuro but did not hear [...] noted in visit 09/10/2018 will fu with RN LACTATION CONSULTANT in 6-8 weeks. If she does not tolerate could consider mycolog vs. Calcitriol ointment. 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 Tabares in hematology at [facility] until [address] Page - [facility] Heme/Onc. 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 Plan to follow up 1 year. Assessment & Plan (11/09/2023 3:53 PM EST): History of chronic leukopenia (at least since 2006) Previously followed by Dr. Tabares in hematology at [facility] until [address] Page - [facility] Heme/Onc. 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 Plan to follow up 1 year. Assessment & Plan (03/26/2023 7:47 PM EDT): History of chronic leukopenia (at least since 2006) Previously followed by Dr. Tabares in hematology at [facility] until [address] 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 Plan to follow up [id number] Benign paroxysmal positional vertigo 11/04/2010 Major depressive disorder, single episode 2009 Vitiligo 11/04/2010 Assessment & Plan (03/26/2023 7:42 PM EDT): Followed by [facility] Derm, continue with Protopic 0.1% ointment [...] Encounters Date Type Department Care Team Description 07/31/2025 9:00 AM EDT Office Visit [facility] [address] [place] [address] Pat Alcala MD Gastroesophageal reflux disease, unspecified whether esophagitis present (Primary Dx); Adenomatous polyp of colon, unspecified part of colon; Nausea 07/31/2025 Travel 07/29/2025 Patient Outreach [facility] MEDICINE [address] [place] [address] Fabiola Bruce FNP Pre-visit Planning ([facility] screening was completed on 01/15/2025) 07/18/2025 Refill [facility] [address] [place] [address] Fabiola Bruce FNP Gastroesophageal reflux disease, unspecified [...] your housing situation today? I have steve sing 01/15/[address] you li [...] 16 07/31/2025 8:52 AM EDT Oxygen Saturation 99% 04/16/2025 10: 23 AM EDT Inhaled Oxygen Concentration - - Weight 84.7 kg (186 lb 12.8 oz) 07/31/2025 8:52 AM EDT Height 152.7 cm (5' 0.13 ) 07/31/2025 8:52 AM ED T Body Mass Index 36.32 07/31/2025 8:52 AM EDT Plan of Treatment Upcoming Encounters Date Type Department Care Team (Late st Contact Info) Description 08/06/2025 9:15 AM EDT Office Visit [facility] MEDICINE [address] [place] [address] Fabiola Bruce, BILINGUAL RECRUITER [address] [place] [address] 08/25/2025 1:00 PM EDT Office Visit [facility] OPTOMETRY [address] [place] [address] Cas, Radha, OD [address] [place] [address] 11/17/2025 1:00 PM EST Office Visit [facility] ADULT DENTAL [address] [place] [address] Heather Jane Health Maintenance Due Date Last [...] 09/30/2020, 01/20/2020, Additional history exists Tobacco Screening 07/31/2026 07/31/2025 Colonoscopy 10/29/2026 10/29/2021, 10/29/2021 Colorectal Cancer Screening [...] 6 AM EDT 06/11/2025 11:45 AM EDT [facility] - 07/25/2025 9:51 AM EDT ----- ------- Name: Jeane Jean Age/Sex: 49/F : 1975 Unit#: [id number] Attend Dr: Emily Hair MD Re06/11/25 Status: DEP REF Location: [facility] Disch: ----- ------- SPEC : [id number] RECD: 06/11/25 STATUS: DENISE HUERTA NUM: [id number] NORMA: 06/11/[address]: Emily Hair MD ENTERED: 06/11/25 SP TYPE: Cytology OTHR DR: Fabiola Bruce ORDERED: Cell Block/2, Fine Ndl Asp/2 Addendum Addendum 1 Entered: 07/25/25 Afirma Test Results (A): Benign - AFIRMA GSC (genomic sequencing immunology specialist): Benign (risk of malignancy approximately 4%) See entire report in the Laboratory/Pathology section of the patient's EMR. A copy of the report has been sent to the ordering provider's office. [facility], [place], [place]; [place]#[id number], #[id number] Addendum Signed (signature on file) Cyrus Mcbride MD 07/25/25 0951 ----- ------- Diagnosis A. Thyroid, right mid pole 1.4 cm nodule, fine needle aspiration: Atypia of undetermined significance (Steedman category 3). COMMENT (A): Low specimen cellularity. Occasional small groups of follicular epithelial cells with Hurthle cell change are present; no significant colloid is identified. The cell block has similar findings. Afirma results will be addended. B. Thyroid, right lower pole 1.6 cm nodule, fine needle aspiration: Atypia of undetermined significance (Steedman category 3). COMMENT (B): Low specimen cellularity. Occasional small groups of follicular epithelial cells are present with focal crowding; no significant colloid is identified. The cell block has similar findings. Afirma results will be addended. Clinical History Right mid 1.4 cm and right lower 1.6 cm thyroid nodule FNA biopsy CONTINUED ON NEXT PAGE ----- ------- Name: Jeane Jean Age/Sex: 49/F : 1975 Unit#: [id number] Attend Dr: Emily Hair MD Re06/11/25 Status: DEP REF Location: [facility] Disch: ----- ------- SPEC : [id number] RECD: 06/11/25 STATUS: DENISE HUERTA NUM: [id number] NORMA: 06/11/25-[address] [facility] [address]: Emily Hair MD ENTERED: 06/11/25-1207 SP TYPE: Cytology OT DR: Fabiola Bruce BILINGUAL RECRUITER ORDERED: Cell Block/2, Fine Ndl Asp/2 Material [...] developed and their performance characteristics determined by [facility]. They have not been cleared or approved by the U.S. Food and Drug Administration (FDA). However, the FDA has determined that such clearance or approval is not necessary. This laboratory is certified under the Clinical Laboratory Improvement Amendments of 1988 (CLIA) as qualified to perform high complexity clinical laboratory testing. Copies To: Emily Hair MD [facility] Endocrinology [address] [facility] [address] [place] [address] [email or web address] Fabiola Bruce [address] [place] [address] ----- ------- Signed (signature on file) Cyrus Mcbride MD 06/13/25 1032 ----- ------- END OF REPORT us Generic External Data Provider LAB CYTOLOGY ROSEMARY MARQUEZ Final Result [facility] [address] [place] [address] [phone] * US Thyroid (05/20/2025 3:33 PM EDT) Anatomical Region Laterality Modality Head, Neck Ultrasound 05/20/2025 3:33 PM EDT Narrative 05/21/2025 7:22 AM EDT [address] [address] Ultrasound Report Signed Patient: Jeane Jean MR#: [id number] : 1975 Acct:[id number] Age/Sex: 49 / F ADM Date: 05/20/25 Loc: HO.US Attending Dr: Fabiola Bruce BILINGUAL RECRUITER Ordering Physician: Fabiola Bruce Date of Service: 05/20/25 Procedure(s): US thyroid Accession Number(s): [id number] cc: Fabiola Bruce EXAMINATION: US THYROID HISTORY: [...] 05/21/25 0719 DD/ 1533 TD/TT: 05/20/25 1538 Grand Scribe: Procedure Note Donotuseinterpreter, Image - 05/21/2025 [place] [address] Ultrasound Report Signed Patient: Sherri Jean#: [id number] : 1975Acct:[id number] Age/Sex: 49 / FADM Date: 05/20/25 Loc: HO.US Attending Dr: Fabiola ARRIAGA Ordering Physician: Fabiola Bruce Date of Service: 05/20/25 Procedure(s): US thyroid Accession Number(s): [id number] cc: Fabiola Bruce EXAMINATION: US THYROID HISTORY: [...] 05/21/25 0719 DD/ 1533 TD/TT: 05/20/25 1538 Grand Scribe: Fabiola Bruce BILINGUAL RECRUITER IMG US PROCEDURES Final Result * BI Mammogram Screening Tomosynthesis Bilateral (07/24/2024 10:30 AM EDT) Anatomical Region Laterality Modality Breast Bilateral Mammography 07/24/2024 10:3 0 AM EDT Narrative 08/16/2024 4:43 PM EDT [facility] [address] [place], [place] [address] Mammography Report Signed Patient: Jeane Jean MR#: [id number] : 1975 Acct:[id number] Age/Sex: 48 / F ADM Date: 07/24/24 Loc: HO.MAMMO Attending Dr: Fabiola Bruce BILINGUAL RECRUITER Ordering Physician: Fabiola Bruce Results: 2Benig n Findings Date of Service: 07/24/24 Follow Up: 1 Year From Orig ina Mammogram Procedure(s): MM tomosynthesis screening BI Accession Number(s): [id number] cc: Fabiola Bruce EXAMINATION: MM SCREENING DIGITAL [...] 08/16/24 1640 DD/ 1030 TD/TT: 07/24/24 1051 Grand Scribe: Procedure Note Donotuseinterpreter, Image - 08/16/2024 [facility] [address] Perez, [place] [address] Mammography Report Signed Patient: Sherri Jean#: [id number] : 1975Acct:[id number] Age/Sex: 48 / FADM Date: 07/24/24 Loc: HO.MAMMO Attending Dr: Fabiola Bruce BILINGUAL RECRUITER Ordering Physician: Fabiola BrucePResults: 2Benig n Findings Date of Service: 07/24/24Follow Up: 1 Year From Orig inal Mammogram Procedure(s): MM tomosynthesis screening BI Accession Number(s): [id number] cc: Fabiola Bruce BILINGUAL RECRUITER EXAMINATION: MM SCREENING DIGITAL BREAST TOMOSYNTHESIS, BILATERAL [...] 08/16/2024 04:40 PM EDT RP Dictated By: Tyminski,Norma DO Signed By: <Electronically signed by Norma Sheehan, DO in OV> 08/16/24 1640 DD/ 1030 TD/TT: 07/24/24 1051 Grand Scribe: Fabiola TRUONGP IMG BI PROCEDURES Edited Resul t - Final * Hepatitis C Viral RNA, Quantitative, Real-Time PCR (02/21/2024 12:25 PM EDT) Hepatitis C Viral Load <15 NOT DETECTED NOT DETECTED IU/mL [facility] HCV Log PCR <1.18 NOT DETECTED NOT DETECTED Log IU/mL [facility] Comment:This test was perfor med using Real-Time Polymerase ChainReaction.Reportable Range: 15 IU/mL to 100,000,000 IU/mL(1.18 Log IU/mL to 8.00 Log IU/mL).The analytical performance characteristics of thisassay have been determined by [employer].The modifications have not been cleared or approved bythe FDA. This assay has been validated pursuant to theCLIA regulations and is used for clinical purposes.For more information on this test, go to:http://education.The Kernel/faq/WHB36a9(This link is being provided for informational/educational purposes only.)THIS TEST WAS PERFORMED AT:[facility] [place] [id number] DELGADO MD Blood 02/21/2024 12:2 5 PM EDT 02/21/2024 1:24 PM EDT Fabiola Bruce [facility] BLOOD ORDERABLES Final Res ult [facility] [address] [place] [address] [phone] * HIV-1/2 Antigen and Antibodies, Fourth Generation, with Reflexes (02/21/2024 12:25 PM EDT) HIV AB/AG Nonreactive Nonreactive [facility] Comment:HIV-1 p24 Ag and/or HIV-1/HIV-2 Ab not detected.A test result that is nonreactive does not exclude thepossibility of exposure to or infection with HIV-1 and/orHIV-2. Nonreactive results in this assay for individualswith prior exposure to HIV-1 and/or HIV-2 may be due toantigen and antibody levels that are below the limit ofdetection of this assay.[facility] HIV Ag/Ab Combo assay result andsupplemental assay results should be interpreted inconjunction with the patient's clinical presentation,history and other laboratory results. If the results areinconsistent with clinical evidence, additional testing issuggested to confirm the result. Blood Venous blood specimen / Unknown 02/21/2024 12:25 PM EDT 02/21/2024 1:24 PM EDT us Fabiola Bruce [facility] BLOOD ORDERABLES Final Res ult [facility] [address] [place] [phone] * THINPREP TIS PAP AND HPV mRNA E6/E7, CT/NG, TRICH (02/14/2022 2:43 PM EDT) Chlamydia trachomatis RNA, TMA, Urogenital NOT DETECTED NOT DETECTED [facility] Clinical Information: None given [facility] COMMENT SEE COMMENT [facility] Comment: The analytical performance characteristics of this assay, when used to test SurePath(TM) specimens have been determined by [employer]. The modifications have not been cleared or approved by the FDA. This assay has been validated pursuant to the CLIA regulations and is used for clinical purposes. For additional information, please refer to https://education.FoundationDB.GO Net Systems/faq/GRE421 (This link is being provided for information/ [...] with computer assisted technology. [facility] Check Scaler: SEE COMMENT [facility] Comment: RXB, CT(ASCP) CT screening location: [place] [address] HPV nRNA E6/E7 Not Detected Not Detected [facility] Comment: Methodology: Rv Detailer-Mediated Amplification This assay detects E6/E7 viral messenger RNA (mRNA) from 14 high-risk HPV types (16,18,31,33,35,39,45,51,52,56,58,59,66,68). The analytical performance characteristics of this assay have been determined by [email or web address]. The modifications have not been cleared or approved by the FDA. This assay has been validated pursuant to the CLIA regulations and is used for clinical purposes. For additional information, please refer to http://OfficialVirtualDJ.The Kernel/faq/SRS887d9 (This link if provided for information/ educational purposes only.) Infection Shift in vaginal luis carlos suggestive of bacterial vaginosis. [facility] Interpretation/Re sult: Negative for intraepithelial lesion or malignancy. [facility] LMP: NONE GIVEN [facility] Neisseria gonorrhoeae RNA, TMA, Urogenital NOT DETECTED NOT DETECTED [facility] Prev. BX: NONE GIVEN [facility] Prev. PAP: NONE GIVEN [facility] SOURCE: Cervix [facility] Statement Of Adequacy: SEE COMMENT [facility] Comment: Satisfactory for evaluation. Endocervical/transformation zone component present. Partially obscuring inflammation Age and/or menstrual status not provided Trichomonas vaginalis, QL, TMA, PAP Vial NOT DETECTED NOT DETECTED [facility] Comment: The analytical performance characteristics of this assay have been determined by [email or web address]. The modifications have not been cleared or approved by the FDA. This assay has been validated pursuant to the CLIA regulations and is used for clinical purposes. For additional information, please refer to http://OfficialVirtualDJ.The Kernel/ faq/Trichomonastma (This link is being provided for information/ educational purposes only.) 02/14/2022 2:43 PM EDT Daniela Castellon NP LAB PATHOLOGY ORDERABLES Final Result [facility] [address] * (ABNORMAL) Colonoscopy (10/29/2021) Colonoscopy Abnormal(A ) Normal Dipti Maravilla HEALTH MAINTENANCE Final Result from Last 3 Months or Most Recently Relevant to Health Maintenance Insurance HSN PARTIAL [facility] 3 DENTAL - HSN PARTIAL (MEDICAID) Care Teams Sales Agent Casualty Insurance Relationship Specialty Start Date End Date Fabiola Bruce FNP [address] [place] [phone] PCP - General Family Medicine 07/22/22
--- OUTSIDE RECORDS SUMMARY | 2025-07-31 11:10 | XMS_ITS | Encounter Summary ---
Author Organization [employer] Address [address] [facility] [address] [place] [address] Care Team Providers Care Hereditary Cancer Program Coordinator Name Role Phone Fabiola Bruce Primary Care Provider [phone] Reason for Visit * Reason Comments Pre-visit Planning SDOH screening was c ompleted on 01/15/2025 Encounter Details Date Type Department Care Team ([facility] st Contact Info) Description 07/29/2025 Patient Outreach [facility] [address] [place] [address] Fabiola Bruce FNP [address] [place] [address] Pre-visit Planning (SDOH screening was completed on [...] Description 08/06/2025 9:15 AM EDT Office Visit [facility] [address] [place] [address] Fabiola Bruce FNP [address] [place] [address] 08/25/2025 1:00 PM EDT Office Visit [facility] OPTOMETRY [address] [place] [address] Radha Cardozo, OD [address] [place] [address] 11/17/2025 1:00 PM EST Office Visit [facility] ADULT DENTAL [address] [place] [address] Heather Jane documented as of this encounter Visit Diagnoses Not on filedocumented in this encounter Additional Health Concerns Assessment Noted Time PHQ-9 Depression Total Score: 1 01/15/20 25 10:09 AM EST documented as of this encounter Care Teams Hereditary Cancer Program Coordinator Relationship Specialty Start Date End Date aFbiola Bruce FNP [address] [place] [address] PCP - General Family Medicine 07/22/22 documented as of this encounter
== END 2025-07-31 10:02 | disposition home or self-care (01) ==
LOC: HO.HHCL 10:01
PROVIDERS: PCP Registered Nurse; Visit Provider Registered Nurse
DX: Z13.89 Encounter for screening for other disorder (principal)

== ENCOUNTER 2025-08-06 10:23 | Outpatient (REF) | payer OTHER, SELFPAY ==
--- OUTSIDE RECORDS SUMMARY | 2025-08-06 09:15 | XMS_ITS | Encounter Summary ---
Author Organization [employer] Address [address] [place] [address] 7 [place] [address] Care Team Providers Care Window Shade Cloth Sewer Name Role Phone Fabiola Bruce Primary Care Provider [phone] Reason for Referral * Consultation (Routine) - Authorized Specialty Diagnoses / Procedures Referred By Jose soria Referred To Contact Family Medicine Diagnoses Vitiligo Fabiola Bruce FNP [address] [place] [address] Phone: tel: fax: Referral ID Status Reason Start Date Expiration Date Visits Requested Visits Authorized [id number] Authorized Specialty Services Required 08/06/2025 08/06/2026 1 1 Reason for Visit * Reason Comments Annual Exam Encounter Details Date Type Department Care Team ([facility] st Contact Info) Description 08/06/2025 9:15 AM EDT Office Visit [facility] MEDICINE [address] [place] [address] Fabiola Bruce FNP [address] [place] [address] Encounter for routine history and physical examination of adult (Primary Dx); Dietary counseling; Exercise counseling; Mixed hyperlipidemia; Acquired hypothyroidism; Gastroesophageal reflux disease, unspecified whether esophagitis present; Healthcare maintenance; Neutropenic disorder (CMS/HCC); Intermittent headache; Vitiligo; Sleep disturbance Social History Tobacco Use Types [...] Sign Reading Time Taken Comments Blood Pressure 110/80 08/06/2025 9:11 AM EDT Pulse 63 08/06/2025 9:11 AM EDT Temperature 36.6 C (97.8 F) 08/06/2025 9:11 AM EDT Respiratory Rate 16 08/06/2025 9:11 AM EDT Oxygen Saturation 98% 08/06/2025 9:11 AM EDT Inhaled Oxygen Concentration - - Weight 84.3 kg (185 lb 12.8 oz) 08/06/2025 9:11 AM EDT Height 152.4 cm (5') 08/06/2025 9:11 AM EDT Body Mass Index 36.29 08/06/2025 9:11 AM EDT documented in this encounter Functional Status * Over the last 2 weeks, how often have you been bothered by any of the following problems? Question Answer Date of Assessment Author Feeling nervous, anxious, or on edge 0 08/06/2025 9:12 AM EDT Danuta Wagner MA Not being able to stop or co ntrol worrying 0 08/06/2025 9:12 AM EDT Danuta Wagner MA Worrying too much about diff erent things 0 08/06/2025 9:12 AM EDT Danuta Wagner MA Trouble relaxing 0 08/06/2025 9:12 AM EDT Danuta Crews MA Being so restless that it is hard to sit still 0 08/06/2025 9:12 AM EDT Danuta Wagner MA Becoming easily annoyed or irritable 0 08/06/2025 9:12 AM EDT Danuta Wagner MA Feeling afraid as if somethi ng awful might happen 0 08/06/2025 9:12 AM EDT Danuta Wagner MA LONNIE-7 Total Score 0 08/06/2025 9:12 AM EDT Danuta Wagner MA documented as of this encounter Patient Instructions * Patient Instructions* CORINA García - 08/06/2025 9:15 AM EDT - Cinthia Maneuver para vertigo documented in this encounter Miscellaneous Notes * Assessment & Plan Note - CORINA García - 08/05/2025 9:17 PM EDTAssociated Problem(s): Sleep disturbance Cont magnesium 400 mg nightly Well controlled with current regimen Continue with sleep hygiene interventions documented in this encounter Plan of Treatment Upcoming Encounters Date Type Department Care Team (Late st Contact Info) Description 08/25/2025 1:00 PM EDT Office Visit [facility] OPTOMETRY [address] [place] [address] Cas, Radha, OD [address] [place] [address] 11/17/2025 1:00 PM EST Office Visit [facility] ADULT DENTAL [address] [place] [address] Heather Jane Pending Results Name Type Priority Associated Diagnoses Date /Time Hepatic Function Panel Lab Routine Encounter for routine history and physical examination of adult 08/06/2025 10:35 AM EDT Scheduled Orders Name Type Priority Associated Diagnoses Orde r Schedule Chlamydia/N. Gonorrhoeae RNA, TMA, Urogenitial Microbiology Routine Encounter for routine history and physical examination of adult Expected: 08/06/2025, Expires: 08/06/2026 Hepatitis C Viral RNA, Quantitative, Real-Time PCR Lab Routine Encounter for routine history and physical examination of adult Expected: 08/06/2025 (Approximate), Expires: 08/06/2026 RPR (Monitor) with Reflex to Titer Lab Routine Encounter for routine history and physical examination of adult Expected: 08/06/2025 (Approximate), Expires: 08/06/2026 HIV-1/2 Antigen and Antibodies, Fourth Generation, with Reflexes Lab Routine Encounter for routine history and physical examination of adult Expected: 08/06/2025 (Approximate), Expires: 08/06/2026 Vitamin D, 25-Hydroxy, Total, Immunoassay Lab Routine Encounter for routine history and physical examination of adult Expected: 08/06/2025 (Approximate), Expires: 08/06/2026 Scheduled Referrals Name Type Priority Associated Diagnoses Orde r Schedule Referral to [facility] Derm Skin Adult Outpatient Referral Routine Vitiligo Expected: 08/06/2025 (Approximate), Expires: 08/06/2026 documented as of this encounter Procedures Procedure Name Priority Date/Time Associated Diagnosis Comments HEMOGLOBIN A1C Routine 08/06/2025 10:35 AM EDT Encounter for routine history and physical examination of adult HEPATIC FUNCTION PANEL Routine 08/06/2025 10:35 AM EDT Encounter for routine history and physical examination of adult documented in this encounter Results * Hemoglobin A1c (08/06/2025 10:35 AM EDT) Hemoglobin A1c 5.7 <6.0 % [facility] Comment:Hemoglobin A1C Refer ence Range Adults: 4.8 - 6.0 % Non diabetic: < 6.0 % Goal: < 7.0 %Additional Action Suggested: > 8.0 %Note: Hemoglobin A1c results are invalid for patients with abnormal amounts of HbF. Blood transfusions may impact the HbA1c concentration in the patient sample. Estimated Average Glucose 117 mg/dL [facility] Comment:eAG = Estimated ave rage glucose which is %A1C expressed asaverage glucose, using the formula of the V6T-VbykukeQdhfemo Glucose study (ADAG), Diabetes Care, Vol.31,#8,Jun. 2007 Blood Venous blood specimen / Unknown 08/06/2025 10:35 AM EDT 08/06/2025 11:30 AM EDT us Fabiola ARRIAGA LAB BLOOD ORDERABLES Final Res ult [facility] [address] [place] [phone] documented in this encounter Visit Diagnoses Diagnosis Encounter for routine history and physical examination of adult- Primary Dietary counseling Dietary surveillance and counseling Exercise counseling Mixed hyperlipidemia Acquired hypothyroidism Unspecified hypothyroidism Gastroesophageal reflux disease, unspecified whether esophagitis present Healthcare maintenance Neutropenic disorder (CMS/HCC) Neutropenia, unspecified Intermittent headache Vitiligo Sleep disturbance Unspecified sleep disturbance documented in this encounter Additional Health Concerns Assessment Noted Time PHQ-9 Depression Total Score: 1 01/15/20 25 10:09 AM EST documented as of this encounter Care Teams Window Shade Cloth Sewer Relationship Specialty Start Date End Date Fabiola Bruce FNP [address] [place] [address] PCP - General Family Medicine 07/22/22 documented as of this encounter
[2025-08-06 12:12] LABS: Hemoglobin A1C 153.2057 umol/L; Total Hemoglobin (HGBA1C) 3990.3200 umol/L
[2025-08-06 12:24] LABS: Alanine Aminotransferase 35 U/L (0-31); Albumin Level 4.8 g/dL (3.5-5.0); Alkaline Phosphatase 73 U/L (39-117); Aspartate Amino Transferase 32 U/L (5-31); Total Protein 7.4 g/dL (6.5-8.0)
--- OUTSIDE RECORDS SUMMARY | 2025-08-06 12:36 | XMS_ITS | Encounter Summary ---
Author Organization [employer] Address [address] [facility] 7t [place] [address] Care Team Providers Care Biomedical Equipment Support Specialist Name Role Phone Fabiola Bruce Primary Care Provider [phone] Encounter Details Date Type Department Care Team ([facility] st Contact Info) Description 07/30/2025 Orders Only [facility] [address] [place], [place] [phone] Fabiola Bruce FNP [address] [place], [place] [phone] Social History Tobacco Use Types Packs/Day Years [...] Description 08/25/2025 1:00 PM EDT Office Visit [facility] OPTOMETRY [address] [place] [address] Cas, Radha, OD [address] [place] [address] 11/17/2025 1:00 PM EST Office Visit [facility] ADULT DENTAL [address] [place] [address] Heather Jane documented as of this encounter Procedures Procedure Name Priority Date/Time Associated Diagnosis Comments BI MAMMOGRAM SCREENING TOMOSYNTHESIS BILATERAL Routine 07/30/2025 10:45 AM EDT documented in this encounter Results * BI Mammogram Screening Tomosynthesis Bilateral (07/30/2025 10:45 AM EDT) Anatomical Region Laterality Modality Breast Bilateral Mammography 07/30/2025 10:4 5 AM EDT Narrative 08/01/2025 4:30 PM EDT [facility] [address] [place] [address] Mammography Report Signed Patient: Jeane Jean MR#: [id number] : 1975 Acct:[id number] Age/Sex: 49 / F ADM Date: 07/30/25 Loc: MAMMO Attending Dr: Fabiola Bruce CASING WORKER Ordering Physician: Fabiola Bruce Results: 2Benig n Findings Date of Service: 07/30/25 Follow Up: 1 Year From [facility] Mammogram Procedure(s): MM tomosynthesis screening BI Accession Number(s): [id number] cc: Fabiola Bruce CASING WORKER EXAMINATION: MM SCREENING DIGITAL BREAST TOMOSYNTHESIS, BILATERAL CLINICAL INFORMATION: Screening. Asymptomatic. COMPARISON: Mammography: Comparison is made with available priors TECHNIQUE: Digital breast mammography with tomosynthesis is performed in both the craniocaudal and mediolateral oblique views along with computer-aided detection (CAD). FINDINGS: There are scattered areas of fibroglandular density (ACR BI-RADS breast composition Category b). Right breast marker clip. There are no significant masses, [...] mammogram. Electronically signed by: Norma Sheehan DO 08/01/2025 04:27 PM EDT Dictated By: Norma Sheehan DO Signed By: <Electronically signed by Norma Sheehan DO in OV> 08/01/25 1627 DD/ 1045 TD/TT: 07/30/25 1100 Delivery Stock Clerk: Procedure Note Donotuseinterpreter, Image - 08/01/2025 [facility] [address] [place], [place] [address] Mammography Report Signed Patient: Sherri Jean#: [id number] : 1975Acct:[id number] Age/Sex: 49 / FADM Date: 07/30/25 Loc: MAMMO Attending Dr: Fabiola Phalen CASING WORKER Ordering Physician: Fabiola Bruce FNPResults: 2Benig n Findings Date of Service: 07/30/25Follow Up: 1 Year From Orig inal Mammogram Procedure(s): MM tomosynthesis screening BI Accession Number(s): [id number] cc: Fabiola Bruce EXAMINATION: MM SCREENING DIGITAL BREAST TOMOSYNTHESIS, BILATERAL CLINICAL INFORMATION: Screening. Asymptomatic. COMPARISON: Mammography: Comparison is made with available priors TECHNIQUE: Digital breast mammography with tomosynthesis is performed in both the craniocaudal and mediolateral oblique views along with computer-aided detection (CAD). FINDINGS: There are scattered areas of fibroglandular density (ACR BI-RADS breast composition Category b). Right breast marker clip. There are no significant masses, [...] mammogram. Electronically signed by: Norma Sheehan DO 08/01/2025 04:27 PM EDT Dictated By: Norma Sheehan DO Signed By: <Electronically signed by Norma Sheehan DO in OV> 08/01/25 1627 DD/ 1045 TD/TT: 07/30/25 1100 Delivery Stock Clerk: Fabiola ARRIAGA IMG BI PROCEDURES Final Result documented in this encounter Visit Diagnoses Not on filedocumented in this encounter Additional Health Concerns Assessment Noted Time PHQ-9 Depression Total Score: 1 01/15/20 25 10:09 AM EST documented as of this encounter Care Teams Biomedical Equipment Support Specialist Relationship Specialty Start Date End Date Fabiola Bruce FNP [address] [place] [address] PCP - General Family Medicine 07/22/22 documented as of this encounter
--- OUTSIDE RECORDS SUMMARY | 2025-08-06 12:36 | XMS_ITS | Encounter Summary ---
Author Organization [employer] Address 75 [facility] 7t [place] [address] Care Team Providers Care Director Of Dance Name Role Phone Fabiola Bruce Primary Care Provider [phone] Reason for Visit * Reason Onset Date Comments CHART PREP 08/05/2025 Encounter Details Date Type Department Care Team ([facility] st Contact Info) Description 08/05/2025 Telephone [facility] MEDICINE [address] [place] [address] Fabiola Bruce FNP [address] [place] [address] CHART PREP Social History Tobacco Use Types Packs/Day Years [...] encounter Miscellaneous Notes * Telephone Encounter - Sabra Lawton MA - 08/05/2025 3:50 PM EDT Chart Prep Labs: done Images: done Mammo 07/30/25 Referrals: appointment pending, please print GI letter for pt. Vaccines due: Flu and Zoster Screenings: not applicable Overdue care gaps: SBIRT, LONNIE-7, Oral health screening, and Disability screen documented in this encounter Plan of Treatment Upcoming Encounters Date Type Department Care Team (Late st Contact Info) Description 08/25/2025 1:00 PM EDT Office Visit [facility] OPTOMETRY [address] [place] [address] Cas, Radha, OD [address] [place] [address] 11/17/2025 1:00 PM EST Office Visit [facility] ADULT DENTAL [address] [place] [address] Heather Jane documented as of this encounter Visit Diagnoses Not on filedocumented in this encounter Additional Health Concerns Assessment Noted Time PHQ-9 Depression Total Score: 1 01/15/20 25 10:09 AM EST documented as of this encounter Care Teams Director Of Dance Relationship Specialty Start Date End Date Fabiola Bruce FNP [address] [place] [address] PCP - General Family Medicine 07/22/22 documented as of this encounter
--- OUTSIDE RECORDS SUMMARY | 2025-08-06 12:36 | XMS_ITS | Encounter Summary ---
Author Organization [email or web address] Address [address] [facility] 7t [place] [address] Care Team Providers Care Pointing Machine Operator Name Role Phone Fabiola Bruce CORINA Primary Care Provider [phone] Reason for Visit * Reason Comments Med Refill Encounter Details Date Type Department Care Team (Late st Contact Info) Description 03/01/2023 Refill [facility] [address] [place] [address] Ashlyn Alexandre MD [address] [place] [address] Acute cough Social History Tobacco Use Types [...] Description 08/25/2025 1:00 PM EDT Office Visit [facility] OPTOMETRY [address] [place] [address] Radha Cardozo, OD [address] [place] [address] 11/17/2025 1:00 PM EST Office Visit [facility] ADULT DENTAL [address] [place] [address] Heather Jane documented as of this encounter Visit Diagnoses Diagnosis Acute cough documented in this encounter Care Teams Pointing Machine Operator Relationship Specialty Start Date End Date Fabiola Bruce FNP [address] [place] [address] PCP - General Family Medicine 07/22/22 documented as of this encounter
--- OUTSIDE RECORDS SUMMARY | 2025-08-06 12:36 | XMS_ITS | Encounter Summary ---
Author Organization [facility] Address [address] [facility] 7 [place] [address] Care Team Providers Care Cab Supervisor Name Role Phone Fabiola Bruec Primary Care Provider [phone] Encounter Details Date Type Department Care Team (Latest Contact Info) Description 05/13/2019 Abstract [facility] CONVERSIONS Dental, Provider, DDS Social [...] Care Team ( st Contact Info) Description 08/25/2025 1:00 PM EDT Office Visit [facility] OPTOMETRY [address] [place] [address] Cas, Radha, OD [address] [place] [address] 11/17/2025 1:00 PM EST Office Visit [facility] ADULT DENTAL [address] [place] [address] Heather Jane documented as of this encounter Visit Diagnoses Not on filedocumented in this encounter Care Teams Cab Supervisor Relationship Specialty Start Date End Date Fabiola Bruce FNP [address] [place] [address] PCP - General Family Medicine 07/22/22 documented as of this encounter
--- OUTSIDE RECORDS SUMMARY | 2025-08-06 12:36 | XMS_ITS | Clinical Summary ---
Author Organization [facility] Address [address] [place] [address] Care Team Providers Care Motor And Generator Assembler Name Role Phone Fabiola Bruce Primary Care Provider [phone] Allergies Active Allergy Reactions Criticality Noted Date [...] AM EDT): The patient is a 47-year-old Sami-speaking female who comes in with a presenting [...] was being followed by neurology at the [facility] for vertigo from [id number] and, at one point she also mentioned [...] and I rather suspect that this will lathe turner to be migraine headaches. I considered [...] noted in visit 09/10/2018 will fu with GOVERNMENT INSTRUCTOR in 6-8 weeks. 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 Procedure Name Priority Date/Time Associated Diagnosis Comments COLONOSCOPY 10/29/2021 PAP Routine 09/10/2018 11:54 AM EDT Screening for cervical cancer from Last 3 Months or Most Recently Relevant to Health Maintenance Results * Due to [place] Fl[place] law, this organization might not be sharing [...] and oxygen saturations were monitored continuously. The [id number] OLYMPUS [id number] was introduced through the anus and advancedto [...] AM EDT) Specimen Adequacy Satisfactory for evaluation [facility] MANUAL 09/17/2018 10:32 AM EDT [facility] ANATOMIC PATHOLOGY - [facility] THREE Pathologist Cytology Interpretation Negative for intraepithelial lesion or malignancy. [facility] MANUAL 09/17/2018 10:32 AM EDT [facility] ANATOMIC PATHOLOGY - [facility] THREE at 1032 EDT Comment:This is the result o f a morphological screening test with an inherent possibility of a false negative interpretation. Cereal Supervisor Statement This Pap test was examined by the ThinPrep Imaging System, [employer], [place], [place]. This Pap test was examined in accordance with the [facility] Cytopathology Laboratory written policy, which incorporates all CLIA mandates. Screening guidelines can be found in Am J Clin Pathol 2012;137:516-542. We endorse the practice guidelines developed by ASCCP and published in the Journal Lower Genital Tract Disease 17(5):S1-S27 (2013). [facility] MANUAL 09/17/2018 10:32 AM EDT [facility] ANATOMIC PATHOLOGY - [facility] THREE Clinical History routine [facility] MANUAL 09/17/2018 10:32 AM EDT [facility] ANATOMIC PATHOLOGY - [facility] THREE HPV High Risk DNA Subtypes NEGATIVE [facility] MANUAL 09/17/2018 10:32 AM EDT [facility] ANATOMIC PATHOLOGY - [facility] THREE Test Description Specimens were tested for high risk HPV using the FDA approved Digene Hybrid Capture II kit, in the Diagnostic Molecular Oncology Lab at [facility]. This test can detect HPV high [...] abnormality. We endorse the recommendations of the [place] Society for Colposcopy and Cervical Pathology for management of pap test results, available at www.asccp.org. ASCCP guidelines also recommend HPV 16/18 genotyping in patients over the age of 30 who have had positive high risk HPV testing, but have a negative morphologic Pap test: (http://www.asccp .org/consensus.sh tml). [facility] MANUAL 09/17/2018 10:32 AM EDT [facility] ANATOMIC PATHOLOGY - [facility] THREE ASR [...] to perform high complexity clinical laboratory testing. [facility] MANUAL 09/17/2018 10:32 AM EDT [facility] ANATOMIC PATHOLOGY - [facility] THREE Resulting Agency Case was signed out at [facility], Department of Pathology, [employer] 3 CLIA [id number] [facility] MANUAL 09/17/2018 10:32 AM EDT [facility] ANATOMIC PATHOLOGY - [facility] THREE Report Header Gynecologic Cytology Report Case: [id number] Authorizing Provider: Oriana Ying Collected: 09/10/2018 1154 Grace Ordering Location: [facility] Received: 09/10/2018 0900 [facility] Obstetrics and Gynecology First Screen: Alyssa Lewis Specimen: Screening ThinPrep Pap, Cervix/Endocervix 09/17/2018 10:32 AM EDT [facility] ANATOMIC PATHOLOGY - [facility] Biopsy specimen (specimen) Cervix uteri structure / Unknown Non-Blood Collection / Unknown 09/10/2018 11:54 AM EDT 09/10/2018 9:00 AM EDT us Oriana Edwards LAB PATHOLOGY/CYTOLO GY ORDERABLES Final Result [facility] ANATOMIC PATHOLOGY - [facility] THREE [address] [place] [address], [place] from Last 3 Months or Most Recently Relevant to Health Maintenance Insurance [facility] HSNO/FREE CARE Care Teams Motor And Generator Assembler Relationship Specialty Start Date End Date Fabiola Bruce [address] [place] [id number] PCP - General Family Medicine 04/10/23
--- OUTSIDE RECORDS SUMMARY | 2025-08-06 12:36 | XMS_ITS | Encounter Summary ---
Author Organization [facility] Address [address] [facility] [address] [place] [address] Care Team Providers Care Dairy Department Manager Name Role Phone Fabiola Bruce Primary Care Provider [phone] Encounter Details Date Type Department Care Team (Late st Contact Info) Description 11/24/2022 Telephone [facility] [address] [place] [address] Fabiola Bruce FNP [address] [place] [address] Social History Tobacco Use Types Packs/Day Years [...] Description 08/25/2025 1:00 PM EDT Office Visit [facility] OPTOMETRY [address] [place] [address] Cas, Radha, OD [address] [place] [address] 11/17/2025 1:00 PM EST Office Visit [facility] ADULT DENTAL [address] [place] [address] Haether Jane documented as of this encounter Visit Diagnoses Not on filedocumented in this encounter Care Teams Dairy Department Manager Relationship Specialty Start Date End Date Fabiola Bruce FNP [address] [place] [address] PCP - General Family Medicine 07/22/22 documented as of this encounter
--- OUTSIDE RECORDS SUMMARY | 2025-08-06 12:37 | XMS_ITS | Encounter Summary ---
Author Organization [employer] Address [address] [facility] [address] [place] [address] Care Team Providers Care Sap Consultant Name Role Phone Fabiola Bruce CORINA Primary Care Provider [phone] Encounter Details Date Type Department Care Team (Latest Contact Info) Description 08/06/2025 Travel Social History Tobacco Use Types Packs/Day [...] AM EDT documented as of this encounter Functional Status * Over the [...] Wagner [place] documented as of this encounter Plan of Treatment Upcoming Encounters Date Type Department Care Team (Late st Contact Info) Description 08/25/2025 1:00 PM EDT Office Visit [facility] OPTOMETRY [address] [place] [address] Radha Cardozo, OD [address] [place] [address] 11/17/2025 1:00 PM EST Office Visit [facility] ADULT DENTAL [address] [place] [address] Heather Jane documented as of this encounter Visit Diagnoses Not on filedocumented in this encounter Additional Health Concerns Assessment Noted Time PHQ-9 Depression Total Score: 1 01/15/20 25 10:09 AM EST documented as of this encounter Care Teams Sap Consultant Relationship Specialty Start Date End Date Fabiola Bruce FNP [address] [place] [address] PCP - General Family Medicine 07/22/22 documented as of this encounter
--- OUTSIDE RECORDS SUMMARY | 2025-08-06 12:37 | XMS_ITS | Clinical Summary ---
Author Organization [employer] Address [address] [facility] [address] [place] [address] Care Team Providers Care Automatic Pattern Edger Name Role Phone Fabiola Bruce CORINA Primary Care Provider [phone] Allergies Active Allergy Reactions Criticality Noted Date Comments Acetaminophen Nausea And Vomiting,Other 09/20/2017 Amoxicillin Anaphylaxis High 05/15/2018 Clindamycin 08/06/2025 Lip swelling Sulfamethoxazole Rash Low 03/22/2021 Other reaction(s): Rash [...] BY MOUTH EVERY MORNING 90 tablet 3 01/08/2 024 Active senna (Senokot) 8.6 MG tablet TAKE 2 TABLETS BY MOUTH ONCE DAILY FOR CONSTIPATION 180 tablet 1 Active Vitamin D High Potency 25 MCG (1000 UT) capsule TAKE 1 CAPSULE BY MOUTH EVERY MORNING 90 capsule 1 024 Active cetirizine (ZyrTEC) 10 MG tabletIndications :Seasonal allergies Take 1 tablet (10 mg) by mouth if needed each day for allergies. 90 tablet 3 024 Active estradiol (Estrace) 0.1 MG/GM vaginal cream INSERT 1 GRAM VAGINALLY TWICE A WEEK 42.5 g 3 Active Multiple Vitamin (multivitamin) tablet Take 1 tablet by mouth Once per day. 90 tablet 3 Active magnesium oxide (Mag-Ox) 400 MG tabletIndications :Sleep disturbance TAKE 1 TABLET BY MOUTH AT BEDTIME 90 tablet 1 Active levothyroxine (Synthroid) 50 MCG tablet Take 1 tablet (50 mcg) by mouth before breakfast. 90 tablet 1 025 2025 Active diphenhydrAMINE (BENADryl) 25 MG tablet Take 1 tablet (25 mg) by mouth every 8 (eight) hours if needed for itching. 30 tablet 1 Active pantoprazole (Protonix) 40 MG EC tabletIndications [...] 7 days. 10 tablet 025 2024 Active rosuvastatin (Crestor) 20 MG tablet Take 1 tablet (20 mg) by mouth Once per day. (Cholesterol) 90 tablet 1 025 2025 Active lactulose (Chronulac) 10 GM/15ML solution Take 15 mL (10 g) by mouth if needed each day (constipation). 150 mL 025 2025 Active econazole nitrate 1 % cream Apply topically 2 times daily for 14 days. 15 g 1 025 2024 Active hydrocortisone 2.5 % cream Apply pea sized amount to skin bid for 2 weeks 15 g 025 Active pantoprazole (ProtoNix) 20 MG EC tabletIndications :Gastroesophageal reflux disease, unspecified whether esophagitis present TAKE 1 TABLET BY MOUTH EVERY MORNING BEFORE BREAKFAST. DO NOT BREAK, CRUSH, DISSOLVE OR CHEW 90 tablet 3 024 2024 Discontinued rosuvastatin (Crestor) 40 MG tabletIndications :Mixed hyperlipidemia Take 1 tablet (40 mg) by mouth at bedtime. 90 tablet 3 024 2024 Discontinued(D ose adjustment) pantoprazole (ProtoNix) 20 MG EC tabletIndications :Gastroesophageal reflux disease, unspecified whether esophagitis present TAKE 1 TABLET BY MOUTH EVERY MORNING BEFORE BREAKFAST DO NOT BREAK, CRUSH, DISSOLVE OR CHEW 90 tablet 3 025 2024 Discontinued Active Problems Problem Noted Date Diagnosed Date Adenomatous polyp of colon 07/31/2025 Assessment & Plan (07/31/2025 9:26 AM EDT): Colonoscopy: 10/29/[address] Dipti Maravilla at [facility]. 2mm polyp in cecum. Recommend repeat colonoscopy in 5 years. Pt now has insurance so will refer to local GI for GERD but pt will need colonoscopy in 10/2026 -referred to GI 07/31/25 Orders: Referral to Gastroenterology; Future Sleep disturbance 08/11/2024 Assessment & Plan (08/05/2025 9:17 PM EDT): Cont magnesium 400 mg nightly Well controlled with current regimen Continue with sleep hygiene interventions Assessment & Plan (01/16/2025 8:50 PM EST): [...] in 6 weeks Healthcare maintenance 07/11/2023 Overview (08/05/2025): Routine Health Maintenance Optometry: [facility] eval Dec 2023. Next Dec 2024 Dental: established with dental home BMD: starting at 64 y/o Last PE: 05/08/24 Routine Cancer Screening Breast CA: Mammogram BIRADS 1 on 07/30/25 Cervical CA: Pap NIL/HPV neg 01/2022 Colonoscopy: 10/29/[address] Dipti Maravilla at [facility]. 2mm polyp in cecum. Recommend repeat colonoscopy in 5 years. Intermittent chest pain 07/11/2023 Assessment & Plan (11/09/2023 3:55 PM EST): Personal history of HLD. Pertinent family history of [place] - mother and sister (@62 y/o) Denies palpitations, SOB, GUNDERSON, blurry vision, N/V/D Evaluated by [facility] Cardiology May 2023, thought to be low probability chest pain syndrome, but high risk for CAD. Stress test, ETT and EKG reassuring Jun - Aug 2023. ED precautions Assessment & Plan (07/16/2023 11:46 AM EDT): Personal history of HLD. Pertinent family history of [place] - mother and sister (@62 y/o) Denies palpitations, SOB, G[place], blurry vision, N/V/D Evaluated by [facility] Cardiology May 2023, thought to be low probability chest pain syndrome, but high risk for CAD. Plan for ETT and follow up in 4 months ED precautions Mixed hyperlipidemia 04/01/2023 Overview (08/05/2025): Lab Results Component Value Date TRIG 105 04/16/2025 TRIG 112 03/20/2023 CHOL 120 04/16/2025 LDLCHOLCAL 53 04/16/2025 HDL 46 04/16/2025 - Cont lifestyle interventions - Med: rosuvastatin 40mg nightly Assessment & Plan (08/11/2024 7:17 PM EDT): [...] enlarged sella with flattened pituitary. -Following with [facility] Neuro - Dr. Rajan -Last [...] enlarged sella with flattened pituitary. -Following with stanley Rajan -Last consult appt in Jun 2023 with plan to order brain MRI -Tapered off nortriptyline and doing well -Continues Excedrin PRN Assessment & Plan (11/09/2023 3:52 PM EST): -Head CT 10/07/22 read as enlarged sella with flattened pituitary. -Following with stanley Rajan -Last consult appt in Jun 2023 with plan to order brain MRI -Continues on nortriptyline 25mg nightly through Neuro -Continues Excedrin PRN Assessment & Plan (07/16/2023 11:44 AM EDT): -Head CT 10/07/22 read as enlarged sella with flattened pituitary. -Following with [facility] Neuro - Dr. Rajan -Last [...] with flattened pituitary. Pt was referred to [facility] Neuro but did not hear [...] noted in visit 09/10/2018 will fu with [facility] in 6-8 weeks. If she does not tolerate could consider mycolog vs. Calcitriol ointment. 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 Tabares in hematology at [facility] until [address] Kaylee HUSSEIN Heme/Onc. 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 Plan to follow up 1 year. Assessment & Plan (11/09/2023 3:53 PM EST): History of chronic leukopenia (at least since 2006) Previously followed by Dr. Tabares in hematology at [facility] until [address] Kaylee HUSSEIN Heme/Onc. 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 Plan to follow up 1 year. Assessment & Plan (03/26/2023 7:47 PM EDT): History of chronic leukopenia (at least since 2006) Previously followed by Dr. Tabares in hematology at [facility] until [address] 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 Plan to follow up Q0siiwrt Benign paroxysmal positional vertigo 11/04/2010 Vitiligo 11/04/2010 Assessment & Plan (03/26/2023 7:42 PM EDT): Followed by [facility] Derm, continue with Protopic 0.1% ointment [...] of trunk 09/29/2014 03/26/2023 Dyslipidemia 10/22/2013 03/26/2023 Major depressive disorder, single episode 11/04/2010 08/05/2025 Encounters Date Type Department Care Team Description 08/06/2025 9:15 AM EDT Office Visit [facility] [address] [place] [phone] Fabiola Bruce FNP Encounter for routine history and physical examination of adult (Primary Dx); Dietary counseling; Exercise counseling; Mixed hyperlipidemia; Acquired hypothyroidism; Gastroesophageal reflux disease, unspecified whether esophagitis present; Healthcare maintenance; Neutropenic disorder ([facility]); Intermittent headache; Vitiligo; Sleep disturbance 08/06/2025 Travel 08/05/2025 Telephone [facility] [address] [place] [phone] Fabiola Bruce FNP CHART PREP 07/31/2025 9:00 AM EDT Office Visit [facility] [address] [place] [phone] Pat Alcala MD Gastroesophageal reflux disease, unspecified whether esophagitis present (Primary Dx); Adenomatous polyp of colon, unspecified part of colon; Nausea 07/31/2025 Travel 07/30/2025 Orders Only [facility] [address] [place], [place] [phone] Fabiola Bruce FNP 07/29/2025 Patient Outreach [facility] [address] [place], [place] [phone] Fabiola Bruce FNP Pre-visit Planning ([facility] screening was completed on 01/15/2025) 07/18/2025 Refill [facility] [address] [place] [address] Fabiola Bruce FNP Gastroesophageal reflux disease, unspecified [...] Mass Index 36.29 08/06/2025 9:11 AM EDT Plan of Treatment Upcoming Encounters Date Type Department Care Team (Late st Contact Info) Description 08/25/2025 1:00 PM EDT Office Visit [facility] [address] [place] [address] Cas, Radha, OD [address] [place] [address] 11/17/2025 1:00 PM EST Office Visit [facility] [address] [place] [address] Lucinda Heather Health Maintenance Due Date Last Done Comments CT Colonography 1975 FIT DNA/Cologuard 1975 FIT 1975 FOBT 1975 Sigmoidoscopy 1975 Family Planning (PISQ) 1989 Zoster Vaccines (1 of 2) 1993 Dental Prophylaxis 07/21/2020 01/20/2020, 0 05/13/2019, 11/09/2018, Additional history exists Dental Oral Exam 08/10/2020 02/07/2020, 04/2018, 07/14/2017, Additional history exists Dental X-Ray: Full Mouth 06/02/2021 06/01/2018, 04/27 COVID-19 Vaccine ( season) 2025 12/09/2021, 05/16/2021, 04/25/2021 Influenza Vaccine (#1) 2025 , 10/08/2018, 08/15/2016, Additional history exists Depression Screening 01/15/2026 01/15/2025, 01/15/20 SDOH Screening 01/15/2026 01/15/2025 Dental X-Ray: Bitewings 04/19/2026 04/18/20 25, 09/30/2020, 01/20/2020, Additional history exists Mammogram 07/30/2026 07/30/2025, 06/28, 07/17/2023, Additional history exists Alcohol/Substance Use Screening 08/06/2026 08/06/2025 Disability Screening 08/06/2026 08/06/2025 Tobacco Screening 08/06/2026 08/06/2025 Colonoscopy 10/29/2026 10/29/2021, 10/29/2021 Colorectal Cancer Screening 10/29/2026 Cervical Cancer Screening 02/14/2027 HPV/Cotest 02/14/2027 02/14/2022 Pap Smear 02/14/2027 02/14/2022, 11/2021, 01/25/2022 DTaP/Tdap/Td Vaccines (3 - Td [...] routine history and physical examination of adult BI MAMMOGRAM SCREENING TOMOSYNTHESIS BILATERAL Routine 07/30/2025 10:45 AM EDT CELL BLOCK Routine 06/11/2025 11:36 AM EDT US THYROID Routine 05/20/2025 3:33 PM EDT Acquired hypothyroidism BITEWING - SINGLE RADIOGRAPHIC IMAGE Routine 04/18/2025 11:30 AM EDT History of painful gingiva HEPATITIS C VIRAL RNA, QUANTITATIVE, REAL-TIME PCR [...] Recently Relevant to Health Maintenance Results * Hemoglobin A1c (08/06/2025 10:35 AM EDT) Hemoglobin A1c 5.7 <6.0 % [facility] Comment:Hemoglobin A1C Refer ence Range Adults: 4.8 - 6.0 % Non diabetic: < 6.0 % Goal: < 7.0 %Additional Action Suggested: > 8.0 %Note: Hemoglobin A1c results are invalid for patients with abnormal amounts of HbF. Blood transfusions may impact the HbA1c concentration in the patient sample. Estimated Average Glucose 117 mg/dL [facility] Comment:eAG = Estimated ave rage glucose which is %A1C expressed asaverage glucose, using the formula of the P1X-HvevbadKythxat Glucose study (ADAG), Diabetes Care, Vol.31,#8,Jun. 2007 Blood Venous blood specimen / Unknown 08/06/2025 10:35 AM EDT 08/06/2025 11:30 AM EDT us Fabiola Bruce HAND STONER LAB BLOOD ORDERABLES Final Res ult [facility] [address] [place] [address] [phone] * BI Mammogram Screening Tomosynthesis Bilateral (07/30/2025 10:45 AM EDT) Anatomical Region Laterality Modality Breast Bilateral Mammography 07/30/2025 10:4 5 AM EDT Narrative 08/01/2025 4:30 PM EDT [facility] [address] [place] [address] Mammography Report Signed Patient: Jeane Urena MR#: [id number] : 1975 Acct:[id number] Age/Sex: 49 / F ADM Date: 07/30/25 Loc: HO.MAMMO Attending Dr: Fabiola Bruce HAND STONER Ordering Physician: Fabiloa Bruce Results: 2Benig n Findings Date of Service: 07/30/25 Follow Up: 1 Year From [facility] ina Mammogram Procedure(s): MM tomosynthesis screening BI Accession Number(s): [id number] cc: Fabiola Bruce HAND STONER EXAMINATION: MM SCREENING DIGITAL BREAST TOMOSYNTHESIS, BILATERAL [...] 08/01/25 1627 DD/ 1045 TD/TT: 07/30/25 1100 Field Rep: Procedure Note Donotuseinterpreter, Image - 08/01/2025 [facility] [address] [place], [place] [address] Mammography Report Signed Patient: Sherri Urena#: [id number] : 1975Acct:[id number] Age/Sex: 49 / FADM Date: 07/30/25 Loc: HO.MAMMO Attending Dr: Fabiola Bruce HAND STONER Ordering Physician: Fabiola BrucePResults: 2Benig n Findings Date of Service: 07/30/25Follow Up: 1 Year From Orig ina Mammogram Procedure(s): MM tomosynthesis screening BI Accession Number(s): [id number] cc: Fabiola Bruce HAND STONER EXAMINATION: MM SCREENING DIGITAL BREAST TOMOSYNTHESIS, BILATERAL [...] 08/01/25 1627 DD/ 1045 TD/TT: 07/30/25 1100 Field Rep: Fabiola ARRIAGA IM BI PROCEDURES Final Result * Cell Block (06/11/2025 11:36 AM EDT) 06/11/2025 11:3 6 AM EDT 06/11/2025 11:45 AM EDT [facility] - 07/25/2025 9:51 AM EDT ----- ------- Name: Jeane Urena Age/Sex: 49/F : 1975 Unit#: [id number] Attend Dr: Emily Hair MD Re06/11/25 Status: DEP REF Location: [facility] Disch: ----- ------- SPEC : [id number] RECD: 06/11/25 STATUS: DENISE REScooter NUM: [id number] NORMA: 06/11/[address] [facility] [address]: Emily Hair MD ENTERED: 06/11/25120 SP TYPE: Cytology OTHR DR: Fabiola Bruce ORDERED: Cell Block/2, Fine Ndl Asp/2 Addendum Addendum 1 Entered: 07/25/25 Afirma Test Results (A): Benign - AFIRMA GSC (genomic sequencing aerodynamics engineer): Benign (risk of malignancy approximately 4%) See entire report in the Laboratory/Pathology section of the patient's EMR. A copy of the report has been sent to the ordering provider's office. Testing performed at [facility], [place], [place]; [facility]#[id number], #[id number] Addendum Signed (signature on file) Cyrus Mcbride MD 07/25/25 0951 ----- ------- Diagnosis A. Thyroid, right mid pole 1.4 cm nodule, fine needle aspiration: Atypia of undetermined significance (Charleston category 3). COMMENT (A): Low specimen cellularity. Occasional small groups of follicular epithelial cells with Hurthle cell change are present; no significant colloid is identified. The cell block has similar findings. Afirma results will be addended. B. Thyroid, right lower pole 1.6 cm nodule, fine needle aspiration: Atypia of undetermined significance (Charleston category 3). COMMENT (B): Low specimen cellularity. [...] Jeane Urena Age/Sex: 49/F : 1975 Unit#: [id number] Attend Dr: Emily Hair MD Re06/11/25 Status: DEP REF Location: [facility] Disch: ----- ------- SPEC : [id number] RECD: 06/11/25 STATUS: DENISE HUERTA NUM: [id number] NORMA: 06/11/[address] [facility] [address]: Emily Hair MD ENTERED: 06/11/25 SP TYPE: Cytology OTHR DR: Fabiola Bruce ORDERED: Cell Block/2, Fine Ndl Asp/2 Material [...] developed and their performance characteristics determined by [facility]. They have not been cleared or approved by the U.S. Food and Drug Administration (FDA). However, the FDA has determined that such clearance or approval is not necessary. This laboratory is certified under the Clinical Laboratory Improvement Amendments of 1988 (CLIA) as qualified to perform high complexity clinical laboratory testing. Copies To: Emily Hair MD [facility] [address] [place] [phone] [email or web address] Fabiola Bruce [address] [place] [address] ----- ------- Signed (signature on file) Cyrus Mcbride MD 06/13/25 1032 ----- ------- END OF REPORT us Generic External Data Provider LAB CYTOLOGY ROSEMARY MARQUEZ Final Result [facility] [address] [place] [phone] * US Thyroid (05/20/2025 3:33 PM EDT) Anatomical Region Laterality Modality Head, Neck Ultrasound 05/20/2025 3:33 PM EDT Narrative 05/21/2025 7:22 AM EDT [address] [address] Ultrasound Report Signed Patient: Jeane Urena MR#: [id number] : 1975 Acct:[id number] Age/Sex: 49 / F ADM Date: 05/20/25 Loc: HO.US Attending Dr: Fabiola ARRIAGA Ordering Physician: Fabiola Bruce Date of Service: 05/20/25 Procedure(s): US thyroid Accession Number(s): [id number] cc: Fabiola Bruce EXAMINATION: US THYROID HISTORY: [...] 05/21/25 0719 DD/ 1533 TD/TT: 05/20/25 1538 Field Rep: Procedure Note Yeisonter, Image - 05/21/2025 [place] [address] Ultrasound Report Signed Patient: Sherri Urena#: [id number] : 1975Acct:[id number] Age/Sex: 49 / FADM Date: 05/20/25 Loc: HO.US Attending Dr: Fabiola Bruce HAND STONER Ordering Physician: Fabiola Bruce Date of Service: 05/20/25 Procedure(s): US thyroid Accession Number(s): [id number] cc: Fabiola Bruce EXAMINATION: US THYROID HISTORY: [...] 05/21/25 0719 DD/ 1533 TD/TT: 05/20/25 1538 Field Rep: Fabiola Bruce [facility] IM[facility] US PROCEDURES Final Result * Hepatitis C Viral RNA, Quantitative, Real-Time PCR (02/21/2024 12:25 PM EDT) Hepatitis C Viral Load <15 NOT DETECTED NOT DETECTED IU/mL [facility] HCV Log PCR <1.18 NOT DETECTED NOT DETECTED Log IU/mL [facility] Comment:This test was perfor med using Real-Time Polymerase ChainReaction.Reportable Range: 15 IU/mL to 100,000,000 IU/mL(1.18 Log IU/mL to 8.00 Log IU/mL).The analytical performance characteristics of thisassay have been determined by [employer].The modifications have not been cleared or approved bythe FDA. This assay has been validated pursuant to theCLIA regulations and is used for clinical purposes.For more information on this test, go to:http://education.Minggl.Energy Points/faq/DWT96a0(This link is being provided for informational/educational purposes only.)THIS TEST WAS PERFORMED AT:[facility] [place] [phone] DELGADO MD Blood 02/21/2024 12:2 5 PM EDT 02/21/2024 1:24 PM EDT us Fabiola Bruce HAND STONER LAB BLOOD ORDERABLES Final Res ult Performing Organization Address [facility]/ZIP Co de Phone Number [facility] [address] [place] [phone] * HIV-1/2 Antigen and Antibodies, Fourth Generation, with Reflexes (02/21/2024 12:25 PM EDT) HIV AB/AG Nonreactive Nonreactive [facility] Comment:HIV-1 p24 Ag and/or HIV-1/HIV-2 Ab not detected.A test result that is nonreactive does not exclude thepossibility of exposure to or infection with HIV-1 and/orHIV-2. Nonreactive results in this assay for individualswith prior exposure to HIV-1 and/or HIV-2 may be due toantigen and antibody levels that are below the limit ofdetection of this assay.The [employer] HIV Ag/Ab Combo assay result andsupplemental assay results should be interpreted inconjunction with the patient's clinical presentation,history and other laboratory results. If the results areinconsistent with clinical evidence, additional testing issuggested to confirm the result. Blood Venous blood specimen / Unknown 02/21/2024 12:25 PM EDT 02/21/2024 1:24 PM EDT us Fabiola Bruce HAND STONER LAB BLOOD ORDERABLES Final Res ult Performing Organization Address [facility]/State/ZIP Co de Phone Number [facility] [address] [place] [address] [phone] * THINPREP TIS PAP AND HPV mRNA E6/E7, CT/NG, TRICH (02/14/2022 2:43 PM EDT) Chlamydia trachomatis RNA, TMA, Urogenital NOT DETECTED NOT DETECTED [facility] Clinical Information: None given [facility] COMMENT SEE COMMENT [facility] Comment: The analytical performance characteristics of this assay, when used to test SurePath(TM) specimens have been determined by [employer]. The modifications have not been cleared or approved by the FDA. This assay has been validated pursuant to the CLIA regulations and is used for clinical purposes. For additional information, please refer to https://Rota dos Concursos.Let it Wave/faq/GAO083 (This link is being provided for information/ [...] has been evaluated with computer assisted technology. [facility] Property Management Accountant: SEE COMMENT [facility] Comment: RXB, CT(ASCP) CT screening location: [place] [address] HPV nRNA E6/E7 Not Detected Not Detected [facility] Comment: Methodology: Spray Rig Operator-Mediated Amplification This assay detects E6/E7 viral messenger RNA (mRNA) from 14 high-risk HPV types (16,18,31,33,35,39,45,51,52,56,58,59,66,68). The analytical performance characteristics of this assay have been determined by [employer]. The modifications have not been cleared or approved by the FDA. This assay has been validated pursuant to the CLIA regulations and is used for clinical purposes. For additional information, please refer to http://Rota [employer] Concursos.Let it Wave/faq/YLE129a1 (This link if provided for information/ educational purposes only.) Infection Shift in vaginal luis carlos suggestive of bacterial vaginosis. [facility] Interpretation/Re sult: Negative for intraepithelial [...] of this assay have been determined by [employer]. The modifications have not been cleared or approved by the FDA. This assay has been validated pursuant to the CLIA regulations and is used for clinical purposes. For additional information, please refer to http://education.Let it Wave/ faq/Trichomonastma (This link is being provided for information/ educational purposes only.) 02/14/2022 2:43 PM EDT Daniela Castellon DIGITAL FORENSICS EXAMINER LAB PATHOLOGY ORDERABLES Final Result [facility] [address] * (ABNORMAL) Colonoscopy (10/29/2021) Colonoscopy Abnormal(A ) Normal Dipti Maravilla HEALTH MAINTENANCE Final Result from Last 3 Months or Most Recently Relevant to Health Maintenance [facility] PART[facility] (MEDICAID) Care Teams Automatic Pattern Edger Relationship Specialty Start Date End Date Fabiola Bruce FNP [address] [place] [phone] PCP - General Family Medicine 07/22/22
--- OUTSIDE RECORDS SUMMARY | 2025-08-06 12:37 | XMS_ITS | Clinical Summary ---
Author Organization [facility] Address [address] [address] Phone Care Team Providers Care Rail Transit Operator Name Role Phone [facility] Primary Care Provider Allergies Active Allergy Reactions [...] PARTIAL HEALTH SAFETY NET PARTIAL Care Teams Rail Transit Operator Relationship Specialty Start Date End Date [facility] [address] [place] [address] PCP - General 06/26/23 Additional Source Comments The information contained in this document represents components of the legal health record. It is not the complete legal health record.[facility]
[2025-08-07 07:59] LABS: HIV Num 1 0.04 S/CO (0.00-0.99)
[2025-08-07 17:14] LABS: HCV Log PCR <1.18 NOT DETECTED Log IU/mL (NOT DETECTED); HepC Viral Load <15 NOT DETECTED IU/mL (NOT DETECTED)
== END 2025-08-06 10:24 | disposition home or self-care (01) ==
LOC: HO.HHCL 10:23
PROVIDERS: Family Medicine; PCP Registered Nurse; Visit Provider Registered Nurse
DX: Z00.00 Encounter for general adult medical examination without abnormal findings (principal); Z11.59 Encounter for screening for other viral diseases; Z11.4 Encounter for screening for human immunodeficiency virus [HIV]; Z11.3 Encounter for screening for infections with a predominantly sexual mode of transmission; K21.9 Gastro-esophageal reflux disease without esophagitis
CPT/HCPCS: 36415; 80076; 82306; 83036; 84443; 86592; 87338; 87389; 87522